=== PATIENT | female | born 1970 | race Caucasian/White ===

== ENCOUNTER → 2017-09-02 14:54 | Outpatient (CLI) | payer OTHER, SELFPAY ==
--- NOTE | 2017-09-02 14:56 | HPBI_ITS ---
MAMMOGRAPHY - BILATERAL SCREENING REASON FOR EXAM: Female, 47 years old. Routine annual screening examination. PERTINENT HISTORY: Non-contributory. Remote right stereotactic biopsy. TECHNIQUE: Digital bilateral breast igor (3D mammographic acquisition) in the CC and MLO projections. 2-D mediolateral oblique (MLO) and craniocaudad (CC) views of both breasts were obtained. CAD: Full Field Digital Mammography with Computer Added Detection was performed. COMPARISON: Comparison is made with prior study dated July 16, 2016 and June 27, 2015. FINDINGS: Breast Composition: There are scattered areas of fibroglandular density. There are no dominant masses or suspicious calcifications. A tissue clip marker is seen in the upper lateral portion of the right breast incomplete with her prior biopsy. No other significant abnormalities are identified. There has been no significant change since the prior study. HPBI/SCREENING MAMM (CAD), BILAT IMPRESSION: Stable bilateral screening mammogram. Yearly follow-up mammogram recommended. (A) ASSESSMENT CATEGORY: BIRADS Category 1: Negative. A letter regarding these results will be sent to the patient by the facility within 30 days. Approximately 10% of breast cancers are not detected by mammography. A normal mammogram should not delay biopsy of a clinically suspicious abnormality. [id number] Electronically Signed: George Springer MD at 8:16 EST Tel [phone], Service support ,
== END ==
PROVIDERS: Family Provider Family Medicine; PCP Family Medicine; Visit Provider Obstetrics & Gynecology
DX: Z12.31 Encounter for screening mammogram for malignant neoplasm of breast (principal)
CPT/HCPCS: 77063; 77067

== ENCOUNTER → 2017-11-05 12:04 | Outpatient (CLI) | payer OTHER, SELFPAY ==
[2017-11-05 14:17] LABS: Absolute Lymphocyte Count 1.52 X10^3/ul (0.83-4.51); Absolute Neutrophil Count 2.8 X10^3/uL (2.0-7.7); Basophil# 0.03 X10^3/uL; Basophil% 0.6 % (0-1); Eosinophil# 0.07 X10^3/uL; Eosinophils% 1.4 % (0-5); Hematocrit 42.9 % (37-47); Hemoglobin 13.8 g/dl (12.0-15.0); Lymphocyte # 1.52 X10^3/ul (4.0); Lymphocyte % 30.8 % (19-41); Mean Corp Hgb Conc 32.2 g/gl (32-36); Mean Corpuscular Hgb 30.1 pg (27.0-32.0); Mean Corpuscular Volume 93.7 fL (81-99); Mean Platelet Vol. 10.4 fl (6.2-12.0); Monocyte# 0.52 X10^3/uL; Monocyte% 10.5 % (0-10); Neutrophil % 56.7 % (47-70); POSITIVE COUNT NO; POSITIVE DIFFERENTIAL NO; POSITIVE MORPHOLOGY NO; Platelet Count 300 K/mm3 (150-450); RBC Distribution Width CV 13.2 % (11.6-14.6); Red Blood Count 4.58 M/mm3 (4.2-5.4); White Blood Count 4.9 K/mm3 (4.4-11.0)
[2017-11-05 14:35] LABS: AST(SGOT) 25 U/L (15-37); Alanine Aminotransfer ALT/SGPT 36 U/L (13-56); Albumin, Serum 3.9 g/dL (3.2-5.0); Alkaline Phosphatase 79 U/L (45-117); Anion Gap 7 (5-15); BUN 8 mg/dL (7-18); BUN/Creat Ratio 9.5 RATIO (10-20); Calcium,Total 8.4 mg/dL (8.5-10.1); Chloride 106 mmol/L (98-107); Creatinine, Serum 0.84 mg/dL (0.55-1.02); EST Glomerular Filtration Rate 77 mL/min (>60); Est Glom Filt Rate - Afr Amer 93 mL/min (>60); Globulin 3.9 g/dL (2.2-4.2); Glucose 85 mg/dL (74-106); Potassium 4.2 mmol/L (3.5-5.1); Protein, Total 7.8 g/dL (6.4-8.2); Sodium Level 141 mmol/L (136-145)
== END ==
PROVIDERS: Family Provider Family Medicine; PCP Family Medicine; Visit Provider Internal Medicine Rheumatology
DX: M06.4 Inflammatory polyarthropathy (principal); M35.1 Other overlap syndromes; M35.8 Other specified systemic involvement of connective tissue; M79.7 Fibromyalgia; K90.0 Celiac disease; F32.89 Other specified depressive episodes; F41.8 Other specified anxiety disorders
CPT/HCPCS: 36415; 80053; 85025

== ENCOUNTER → 2018-03-09 15:37 | Outpatient (CLI) | payer OTHER, SELFPAY ==
[2018-03-09 17:40] LABS: Absolute Lymphocyte Count 1.69 X10^3/ul (0.83-4.51); Absolute Neutrophil Count 3.6 X10^3/uL (2.0-7.7); Basophil# 0.02 X10^3/uL; Basophil% 0.3 % (0-1); Eosinophil# 0.12 X10^3/uL; Hematocrit 42.6 % (37-47); Hemoglobin 14.4 g/dl (12.0-15.0); Lymphocyte # 1.69 X10^3/ul (4.0); Lymphocyte % 27.5 % (19-41); Mean Corp Hgb Conc 33.8 g/gl (32-36); Mean Corpuscular Hgb 31.1 pg (27.0-32.0); Mean Platelet Vol. 10.4 fl (6.2-12.0); Monocyte# 0.67 X10^3/uL; Monocyte% 10.9 % (0-10); Neutrophil # 3.63 X10^3/uL (2.7-7.7); POSITIVE COUNT NO; POSITIVE DIFFERENTIAL NO; POSITIVE MORPHOLOGY NO; Platelet Count 288 K/mm3 (150-450); RBC Distribution Width CV 13.3 % (11.6-14.6); RBC Distribution Width SD 44.4 fl (35.1-43.9); Red Blood Count 4.63 M/mm3 (4.2-5.4); White Blood Count 6.2 K/mm3 (4.4-11.0)
[2018-03-09 17:48] LABS: ALB/GLOB Ratio 0.9 RATIO (0.9-2.4); AST(SGOT) 20 U/L (15-37); Alanine Aminotransfer ALT/SGPT 28 U/L (13-56); Albumin, Serum 3.9 g/dL (3.2-5.0); Alkaline Phosphatase 66 U/L (45-117); Anion Gap 7 (5-15); BUN 8 mg/dL (7-18); BUN/Creat Ratio 9.1 RATIO (10-20); Calcium,Total 8.8 mg/dL (8.5-10.1); Chloride 106 mmol/L (98-107); Creatinine, Serum 0.88 mg/dL (0.55-1.02); EST Glomerular Filtration Rate 73 mL/min (>60); Est Glom Filt Rate - Afr Amer 88 mL/min (>60); Globulin 4.4 g/dL (2.2-4.2); Glucose 85 mg/dL (74-106); Potassium 4.1 mmol/L (3.5-5.1); Protein, Total 8.3 g/dL (6.4-8.2); Sodium Level 139 mmol/L (136-145)
== END ==
PROVIDERS: Family Provider Family Medicine; PCP Family Medicine; Visit Provider Internal Medicine Rheumatology
DX: M06.4 Inflammatory polyarthropathy (principal); M35.1 Other overlap syndromes; M35.8 Other specified systemic involvement of connective tissue; M79.7 Fibromyalgia; K90.0 Celiac disease; F32.89 Other specified depressive episodes; F41.8 Other specified anxiety disorders
CPT/HCPCS: 36415; 80053; 85025

== ENCOUNTER → 2018-05-12 13:21 | Outpatient (CLI) | payer OTHER, SELFPAY ==
[2018-05-12 14:15] LABS: Absolute Lymphocyte Count 1.62 X10^3/ul (0.83-4.51); Absolute Neutrophil Count 3.5 X10^3/uL (2.0-7.7); Basophil# 0.03 X10^3/uL; Basophil% 0.5 % (0-1); Eosinophil# 0.14 X10^3/uL; Eosinophils% 2.4 % (0-5); Hematocrit 40.3 % (37-47); Hemoglobin 13.4 g/dl (12.0-15.0); Lymphocyte # 1.62 X10^3/ul (4.0); Lymphocyte % 27.8 % (19-41); Mean Corp Hgb Conc 33.3 g/gl (32-36); Mean Corpuscular Hgb 31.1 pg (27.0-32.0); Mean Corpuscular Volume 93.5 fL (81-99); Mean Platelet Vol. 10.1 fl (6.2-12.0); Monocyte# 0.56 X10^3/uL; Monocyte% 9.6 % (0-10); Neutrophil # 3.46 X10^3/uL (2.7-7.7); Neutrophil % 59.5 % (47-70); Platelet Count 302 K/mm3 (150-450); RBC Distribution Width CV 13.9 % (11.6-14.6); RBC Distribution Width SD 45.7 fl (35.1-43.9); Red Blood Count 4.31 M/mm3 (4.2-5.4); White Blood Count 5.8 K/mm3 (4.4-11.0)
[2018-05-12 14:19] LABS: POSITIVE COUNT NO; POSITIVE DIFFERENTIAL NO; POSITIVE MORPHOLOGY NO
[2018-05-12 14:39] LABS: AST(SGOT) 20 U/L (15-37); Alanine Aminotransfer ALT/SGPT 38 U/L (13-56); Albumin, Serum 3.9 g/dL (3.2-5.0); Alkaline Phosphatase 73 U/L (45-117); Anion Gap 4 (5-15); BUN 14 mg/dL (7-18); BUN/Creat Ratio 18.6 RATIO (10-20); Calcium,Total 8.6 mg/dL (8.5-10.1); Chloride 105 mmol/L (98-107); Creatinine, Serum 0.75 mg/dL (0.55-1.02); EST Glomerular Filtration Rate 87 mL/min (>60); Est Glom Filt Rate - Afr Amer 106 mL/min (>60); Glucose 80 mg/dL (74-106); Potassium 3.9 mmol/L (3.5-5.1); Protein, Total 7.9 g/dL (6.4-8.2); Sodium Level 137 mmol/L (136-145)
== END ==
PROVIDERS: Family Provider Family Medicine; PCP Family Medicine; Referring Provider Internal Medicine Rheumatology; Visit Provider Internal Medicine Rheumatology
DX: M06.4 Inflammatory polyarthropathy (principal); M35.1 Other overlap syndromes; M35.8 Other specified systemic involvement of connective tissue; M79.7 Fibromyalgia; K90.0 Celiac disease; F32.89 Other specified depressive episodes; F41.8 Other specified anxiety disorders
CPT/HCPCS: 36415; 80053; 85025

== ENCOUNTER → 2018-08-11 13:01 | Outpatient (CLI) | payer OTHER, SELFPAY ==
[2018-08-11 14:32] LABS: Absolute Lymphocyte Count 1.56 X10^3/ul (0.83-4.51); Basophil# 0.03 X10^3/uL; Basophil% 0.6 % (0-1); Eosinophil# 0.09 X10^3/uL; Eosinophils% 1.7 % (0-5); Hematocrit 40.5 % (37-47); Hemoglobin 13.7 g/dl (12.0-15.0); Lymphocyte # 1.56 X10^3/ul (4.0); Lymphocyte % 29.7 % (19-41); Mean Corp Hgb Conc 33.8 g/gl (32-36); Mean Corpuscular Volume 94.6 fL (81-99); Mean Platelet Vol. 10.5 fl (6.2-12.0); Monocyte# 0.54 X10^3/uL; Monocyte% 10.3 % (0-10); Neutrophil # 3.02 X10^3/uL (2.7-7.7); Neutrophil % 57.5 % (47-70); Platelet Count 315 K/mm3 (150-450); RBC Distribution Width CV 13.5 % (11.6-14.6); RBC Distribution Width SD 44.8 fl (35.1-43.9); Red Blood Count 4.28 M/mm3 (4.2-5.4); White Blood Count 5.3 K/mm3 (4.4-11.0)
[2018-08-11 14:37] LABS: POSITIVE COUNT NO; POSITIVE DIFFERENTIAL NO; POSITIVE MORPHOLOGY NO
[2018-08-11 14:47] LABS: ALB/GLOB Ratio 1.1 RATIO (0.9-2.4); AST(SGOT) 21 U/L (15-37); Alanine Aminotransfer ALT/SGPT 30 U/L (13-56); Alkaline Phosphatase 68 U/L (45-117); Anion Gap 11 (5-15); BUN 12 mg/dL (7-18); BUN/Creat Ratio 14.7 RATIO (10-20); Chloride 106 mmol/L (98-107); Creatinine, Serum 0.82 mg/dL (0.55-1.02); EST Glomerular Filtration Rate 79 mL/min (>60); Est Glom Filt Rate - Afr Amer 96 mL/min (>60); Globulin 3.8 g/dL (2.2-4.2); Glucose 81 mg/dL (74-106); Potassium 3.9 mmol/L (3.5-5.1); Protein, Total 7.8 g/dL (6.4-8.2); Sodium Level 141 mmol/L (136-145)
--- OUTSIDE RECORDS SUMMARY | 2018-10-13 12:07 | XMS RPT_ITS ---
:1970 Author Organization OHIP Care Team Providers Name Role Phone ESTEBAN NOVA Attending ESTEBAN Mendoza Referring Unavailable ESTEBAN NOVA Attending Unavailable ESTEBAN NOVA Referring Unavailable ESTEBAN NOVA Attending Unavailable ESTEBAN NOVA Referring Unavailable ESTEBAN NOVA Attending Unavailable ESTEBAN NOVA Referring Unavailable ESTEBAN NOVA Attending Unavailable ESTEBAN NOVA Referring Unavailable ESTEBAN NOVA Referring Unavailable ESTEBAN NOVA Attending Unavailable ESTEBAN NOVA Referring Unavailable ESTEBAN NOVA Attending Unavailable SRINIVASAN GRAHAM Attending Unavailable SRINIVASAN GRAHAM Referring Unavailable Vellanki, Vanessa Attending Unavailable Vellanki, Vanessa Referring Unavailable Esteban Nova Primary Care Unavailable Rubi Adams Attending Unavailable Mary Jane, Esteban Primary Care Unavailable Vellanki, Vanessa Attending Unavailable Esteban Nova Primary Care Unavailable Vellanki, Vanessa Attending Unavailable Vellanki, Vanessa Referring Unavailable Esteban Nova Primary Care Unavailable Vellanki, Vanessa Attending Unavailable Vellanki, Vanessa Referring Unavailable Mary Jane, Esteban Primary Care Unavailable PROBLEMS PROBLEMS DATE TYPE CONDITION / CODE ATTENDING STATUS SOURCE 08/11/2018 Unknown 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 involvement of Hospital connective tissue / Repository M35.8(ICD-10) 08/11/2018 Unknown M79.7 - Fibromyalgia [place]i, Active [place] / M79.7(ICD-10) [facility] Hospital Repository 08/11/2018 Unknown K90.0 - Celiac [place]i, Active [place] disease / [facility] K90.0(ICD-10) Hospital Repository 08/11/2018 Unknown F32.89 - Other [place], Active [place] specified depressive [facility] episodes / Hospital F32.89(ICD-10) Repository 08/11/2018 Unknown F41.8 - Other [place], Active [place] specified anxiety [facility] disorders / Hospital F41.8(ICD-10) Repository 05/19/2018 Active Other usp NA Active [place] (current[facility] Main therapy / [place] Z79.899(ICD-10) Repository 05/19/2018 Active Other fatigue / NA Active [place] R53.83(ICD-10) Clinic Main [place] Repository 05/12/2018 Unknown F32.9 - Major V[place]i, Active [place] depressive disorder, [facility] single episode, Hospital unspecified / Repository F32.9(ICD-10) 09/25/2017 Admitting Raised antibody SRINIVASAN GRAHAM Active [facility] Diagnosis titer / System R76.0(ICD-10) Repository PROCEDURES PROCEDURES No Procedure Records FoundRESULTS RESULTS PROGRESS Observed: 08/11/2018 Status: COMPLETED Source: [place] 2:40 PM [facility] REPOSITORY HNO ID: [id number] Author: Esteban Nova Service: (none) Author Type: Physician Type: Progress Notes Filed: 08/13/2018 9:41 AM Note Text: Chief Complaint Patient presents with: F/U 3 Month: HTN, Fatigue, Anxiety/OCD HPI Suzanne Garza is a 48 year old female who presents here today for a 3 mo f/u. Pt here today for a 3 mo f/u. HTN - Denies checking BP at home. Denies any chest pain, sob or dizziness. Currently taking Lisinopril 10 mg 1 tab po once daily and Amlodipine 5 mg daily (to help control Raynaud's). Anxiety/Depression/OCD - OCD symptoms are semi-controlled and not as bad as what they have been. Feet - Complains of bilateral foot pain once completing a shift at work. Looking into getting some new shoes today. Weight - Continues to keep increasing. In 1 year pt has gained any where from 20-25 lbs. States that her eating habits haven't changed but she doesn't move much either. Also has been on Fatigue - Chronic fatigue, continues to still have issues despite being treated for multiple things. Raynauds - Was prescribed Amlodipine for red/purple toes and hands. Since starting medication symptoms have been better controlled. Rheum/Fibro - Following with Dr. Hayden every 3 months. Will discuss with her about increased arthritis pain. Currently taking Turmeric, Methotrexate 2.5 mg 6 tabs on Thursday, Leucovorin 15 mg 1 tab po on Thursday, Plaquenil 200 mg 1 tab po bid and Flexeril 10 mg 1 tab at bedtime. Past medical history, appointments, medications, allergies reviewed. Previous Medical History PAST MEDICAL HISTORY Diagnosis Date - Abnormal mammogram, unspecified right - Anxiety on meds - Mental disorder Previous Surgical History PAST SURGICAL HISTORY Procedure Laterality Date - EGD W/O OR W/BRUSH/WASH 06/29/14 EGD - STEREOTACTIC CORE BIOPSY 04/12/09 right breast - VAGINAL HYSTERECTOMY ovaries not taken Family History FAMILY HISTORY Problem Relation Age of Onset - Thyroid Mother - Hypertension Mother - Diabetes Mother - Ischemic Heart Disease Father age 55 of [place] Patient Allergies ALLERGIES Allergen Reactions - Codeine Vomiting Current Medications Current Outpatient Prescriptions on File Prior to Visit: folic acid 1 mg tablet Take 1 tablet by mouth twice daily. leucovorin (LEUCOVORIN) 15 mg tablet Take 15 mg by mouth once each week. methotrexate 2.5 mg tablet TAKE 6 TABLETS BY MOUTH ONCE WEEKLY amLODIPine (NORVASC) 5 mg tablet Take 5 mg by mouth once daily. turmeric root extract 500 mg cap Take 1 capsule by mouth once daily. cyanocobalamin, vitamin B-12, 5,000 mcg ODT Take 1 tablet by mouth once daily. sour cabrera extract (TART CABRERA EXTRACT) 1,000 mg cap Take 1 capsule by mouth once daily. ALPRAZolam (XANAX) 0.5 mg tablet Take 1 tablet by mouth three times daily as needed for up to 90 days. lisinopril (ZESTRIL, PRINIVIL) 10 mg tablet Take 1 tablet by mouth once daily. cyclobenzaprine (FLEXERIL) 10 mg tablet Take 1 tablet by mouth daily at bedtime. venlafaxine ER (EFFEXOR XR) 150 mg 24 hr capsule Take 1 capsule by mouth once daily. hydroxychloroquine (PLAQUENIL) 200 mg tablet Take 200 mg by mouth twice daily. Cholecalciferol, Vitamin D3, 1,000 unit cap Take 1 capsule by mouth once daily. No current facility-administered medications on file prior to visit. 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 General Appearance: Well appearing, alert, in no acute distress, well-hydrated, well nourished. and Obese. Neck: Supple, no adenopathy; thyroid symmetric, normal size, no bruits. Lungs: lungs clear to auscultation. No wheezing, rhonchi, rales. Heart: RRR without murmur, gallop, or rubs. No ectopy. Health Maintenance List BP CONTROLLED (<130/80) due on 1987 INFLUENZA(1) due on 03/20/2018 MAMMOGRAM due on 09/02/2018 ANNUAL PCP TEAM CHRONIC DISEASE VISIT due on 05/26/2019 DIABETES SCREEN due on 05/19/2021 LIPID SCREEN due on 03/25/2022 DTAP,TDAP,TD(3 - Td) due on 12/18/2025 Data reviewed External labs ASSESSMENT/PLAN: 1. Anxiety with depression - ICD9: 300.4, ICD10: F41.8 (primary diagnosis) - D/c Effexor due to possible weight gain. - Start Cymbalta 30 mg once daily. 2. Raynaud's phenomenon without gangrene - ICD9: 443.0, ICD10: I73.00 Continue norvasc 3. Obsessive-compulsive disorder, unspecified type - ICD9: 300.3, ICD10: F42.9 Continue current medications. 4. Essential hypertension - ICD9: 401.9, ICD10: I10 - good control - Continue current medication(s) - Goal of BP <140/90 5. Fibromyalgia - ICD9: 729.1, ICD10: M79.7 1 mo f/u to check on medication. I agree with the Chief Complaint, ROS, and Past Histories independently gathered by the clinical sales support engineer and the remaining scribed note accurately describes my personal service to the patient. Esteban Nova MD The documentation for this note was completed by Shawnee Piper Ma acting as scribe for Esteban Nova MD. August 11, 2018 2:40 PM. CNOV Observed: 08/11/2018 Status: COMPLETED Source: [place] 2:20 PM [facility] REPOSITORY [facility] SUZANNE GARZA ([id number]) 1970 F Date Time Provider Department 08/11/18 2:20 PM ESTEBAN NOVA During your visit today, we recorded the following information about you: Pulse Respiration Blood pressure Weight 80/minute 16/minute 138/86 116.5 kg Esteban Nova MD 08/13/2018 9:41 AM Signed Chief Complaint Patient presents with: F/U 3 Month: HTN, Fatigue, Anxiety/OCD HPI Suzanne Garza is a 48 year old female who presents here today for a 3 mo f/u. Pt here today for a 3 mo f/u. HTN - Denies checking BP at home. Denies any chest pain, sob or dizziness. Currently taking Lisinopril 10 mg 1 tab po once daily and Amlodipine 5 mg daily (to help control Raynaud's). Anxiety/Depression/OCD - OCD symptoms are semi-controlled and not as bad as what they have been. Feet - Complains of bilateral foot pain once completing a shift at work. Looking into getting some new shoes today. Weight - Continues to keep increasing. In 1 year pt has gained any where from 20-25 lbs. States that her eating habits haven't changed but she doesn't move much either. Also has been on Fatigue - Chronic fatigue, continues to still have issues despite being treated for multiple things. Raynauds - Was prescribed Amlodipine for red/purple toes and hands. Since starting medication symptoms have been better controlled. Rheum/Fibro - Following with Dr. Hayden every 3 months. Will discuss with her about increased arthritis pain. Currently taking Turmeric, Methotrexate 2.5 mg 6 tabs on Thursday, Leucovorin 15 mg 1 tab po on Thursday, Plaquenil 200 mg 1 tab po bid and Flexeril 10 mg 1 tab at bedtime. Past medical history, appointments, medications, allergies reviewed. Previous Medical History PAST MEDICAL HISTORY Diagnosis Date - Abnormal mammogram, unspecified right - Anxiety on meds - Mental disorder Previous Surgical History PAST SURGICAL HISTORY Procedure Laterality Date - EGD W/O OR W/BRUSH/WASH 06/29/14 EGD - STEREOTACTIC CORE BIOPSY 04/12/09 right breast - VAGINAL HYSTERECTOMY ovaries not taken Family History FAMILY HISTORY Problem Relation Age of Onset - Thyroid Mother - Hypertension Mother - Diabetes Mother - Ischemic Heart Disease Father age 55 of [place] Patient Allergies ALLERGIES Allergen Reactions - Codeine Vomiting Current Medications Current Outpatient Prescriptions on File Prior to Visit: folic acid 1 mg tablet Take 1 tablet by mouth twice daily. leucovorin (LEUCOVORIN) 15 mg tablet Take 15 mg by mouth once each week. methotrexate 2.5 mg tablet TAKE 6 TABLETS BY MOUTH ONCE WEEKLY amLODIPine (NORVASC) 5 mg tablet Take 5 mg by mouth once daily. turmeric root extract 500 mg cap Take 1 capsule by mouth once daily. cyanocobalamin, vitamin B-12, 5,000 mcg ODT Take 1 tablet by mouth once daily. sour cabrera extract (TART CABRERA EXTRACT) 1,000 mg cap Take 1 capsule by mouth once daily. ALPRAZolam (XANAX) 0.5 mg tablet Take 1 tablet by mouth three times daily as needed for up to 90 days. lisinopril (ZESTRIL, PRINIVIL) 10 mg tablet Take 1 tablet by mouth once daily. cyclobenzaprine (FLEXERIL) 10 mg tablet Take 1 tablet by mouth daily at bedtime. venlafaxine ER (EFFEXOR XR) 150 mg 24 hr capsule Take 1 capsule by mouth once daily. hydroxychloroquine (PLAQUENIL) 200 mg tablet Take 200 mg by mouth twice daily. Cholecalciferol, Vitamin D3, 1,000 unit cap Take 1 capsule by mouth once daily. No current facility-administered medications on file prior to visit. 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 General Appearance: Well appearing, alert, in no acute distress, well-hydrated, well nourished. and Obese. Neck: Supple, no adenopathy; thyroid symmetric, normal size, no bruits. Lungs: lungs clear to auscultation. No wheezing, rhonchi, rales. Heart: RRR without murmur, gallop, or rubs. No ectopy. Health Maintenance List BP CONTROLLED (<130/80) due on 1987 INFLUENZA(1) due on 03/20/2018 MAMMOGRAM due on 09/02/2018 ANNUAL PCP TEAM CHRONIC DISEASE VISIT due on 05/26/2019 DIABETES SCREEN due on 05/19/2021 LIPID SCREEN due on 03/25/2022 DTAP,TDAP,TD(3 - Td) due on 12/18/2025 Data reviewed External labs ASSESSMENT/PLAN: 1. Anxiety with depression - ICD9: 300.4, ICD10: F41.8 (primary diagnosis) - D/c Effexor due to possible weight gain. - Start Cymbalta 30 mg once daily. 2. Raynaud's phenomenon without gangrene - ICD9: 443.0, ICD10: I73.00 Continue norvasc 3. Obsessive-compulsive disorder, unspecified type - ICD9: 300.3, ICD10: F42.9 Continue current medications. 4. Essential hypertension - ICD9: 401.9, ICD10: I10 - good control - Continue current medication(s) - Goal of BP <140/90 5. Fibromyalgia - ICD9: 729.1, ICD10: M79.7 1 mo f/u to check on medication. I agree with the Chief Complaint, ROS, and Past Histories independently gathered by the clinical sales support engineer and the remaining scribed note accurately describes my personal service to the patient. Esteban Nova MD The documentation for this note was completed by Shawnee Piper Ma acting as scribe for Esteban Nova MD. August 11, 2018 2:40 PM. Referring Provider: SELF [[id number]] Allergies As of Date: 08/11/2018 Noted Allergy Reaction CODEINE 12/10/2005 11 - Vomiting Date Reviewed: 08/11/2018 Reviewed by: Shawnee Piper Ma - Fully Assessed Reason for Visit: F/U 3 Month [443] Cmt: HTN, Fatigue, Anxiety/OCD Primary Visit Diagnosis:Anxiety with depression [F41.8] Other Visit Diagnoses:Raynaud's phenomenon without gangrene [I73.00] Obsessive-compulsive disorder, unspecified type [F42.9] Essential hypertension [I10] Fibromyalgia [M79.7] Order(s):DULoxetine (CYMBALTA) 30 mg capsuleTake 1 capsule by mouth once daily.Disp: 30 capsuleRfl: 5 Prescriptions as of 08/11/2018 Sig: FOLIC ACID 1 MG TABLET Take 1 tablet by mouth twice * LEUCOVORIN CALCIUM 15 MG TABL* Take 15 mg by mouth once each* METHOTREXATE SODIUM 2.5 MG TA* TAKE 6 TABLETS BY MOUTH ONCE * AMLODIPINE 5 MG TABLET Take 5 mg by mouth once daily. TURMERIC ROOT EXTRACT 500 MG * Take 1 capsule by mouth once * CYANOCOBALAMIN (VIT B-12) 5,0* Take 1 tablet by mouth once d* SOUR CABRERA EXTRACT 1,000 MG * Take 1 capsule by mouth once * ALPRAZOLAM 0.5 MG TABLET Take 1 tablet by mouth three * LISINOPRIL 10 MG TABLET Take 1 tablet by mouth once d* CYCLOBENZAPRINE 10 MG TABLET Take 1 tablet by mouth daily * HYDROXYCHLOROQUINE 200 MG TAB* Take 200 mg by mouth twice da* CHOLECALCIFEROL (VITAMIN D3) * Take 1 capsule by mouth once * DULOXETINE 30 MG CAPSULE,JODI* Take 1 capsule by mouth once * Problem List As Of Date 08/11/2018 Noted Resolved Anxiety [F41.9] INVALID FOR* Hypothyroidism [E03.9] INVALID FOR* Paresthesia of both feet [R20.2] INVALID FOR* Neuropathy [G62.9] INVALID FOR* Discoloration of skin of toe [L81.9] INVALID FOR* Raynaud's phenomenon [I73.00] INVALID FOR* Pain in both feet [M79.671, M79.672] INVALID FOR*03/03/2018 Concern about neurological disease without diag*INVALID FOR*03/03/2018 OCD (obsessive compulsive disorder) [F42.9] INVALID FOR* Essential hypertension [I10] INVALID FOR* Obesity, Class II, BMI 35-39.9 [E66.9] INVALID FOR* Fibromyalgia [M79.7] INVALID FOR* Positive HANG (antinuclear antibody) [R76.8] INVALID FOR* Prescriptions ordered this encounter Disp Refills Start End DULOXETINE 30 MG CAPSULE,DELAYED REL* 30 c* 5 08/11/2018 Route: ORAL Sig: Take 1 capsule by mouth once daily. Medications Discontinued During This Encounter venlafaxine ER (EFFEXOR XR) 150 mg 2* 30 c* 5 02/20/2018 08/11/2018 Cmt: This prescription was filled on 02/19/2018. Any refills authorized will be placed on file. Sig: Take 1 capsule by mouth once daily. Disc: Changing Therapy/Dosage Form Disposition: Return in about 4 weeks (around 09/08/2018). Follow-up and Disposition History Recorded Encounter Status:Closed by ESTEBAN NOVA MD on 08/13/18 CBC W/DIFF, AUTOMATED Collected: 08/11/2018 Status: F Source: [place] 1:12 PM [facility] REPOSITORY TYPE CODE TESTS RESULT OUT OF RANGE REFERENCE UNITS LAB L100.1000 4.4-11.0 K/mm3 Normal WBC 5.3 LAB L100.1200 4.2-5.4 M/mm3 Normal RBC 4.28 LAB L100.1300 12.0-15.0 g/dl Normal HGB 13.7 LAB L100.1400 37-47 % Normal HCT 40.5 LAB L100.1500 81-99 fL Normal MCV 94.6 LAB L100.1600 27.0-32.0 pg Normal MCH 32.0 LAB L100.1700 32-36 g/gl Normal MCHC 33.8 LAB L100.1810 11.6-14.6 % Normal RDW CV 13.5 LAB L100.1820 35.1-43.9 fl High RDW SD 44.8 LAB L100.1900 150-450 K/mm3 Normal PLT 315 LAB L100.2000 6.2-12.0 fl Normal MPV 10.5 LAB L100.2100 47-70 % Normal NEUT% 57.5 LAB L100.2200 19-41 % Normal LY% 29.7 LAB L100.2300 0-10 % High MONO% 10.3 LAB L100.2400 0-5 % Normal EO% 1.7 LAB L100.2500 0-1 % Normal BASO% 0.6 LAB L100.2550 0.0-0.9 % Normal IM GRAN % 0.200 Result Comment: IG% - Immature Granulocytes (promyelocytes, myelocytes and metamyelocytes) > 1% indicates that a LEFT SHIFT is Present. LAB L100.2620 2.0-7.7 X10 3/uL Normal Absolute Neut 3.0 LAB L100.2720 0.83-4.51 X10 3/ul Normal Absolute Lymph 1.56 Performed By: #### L100.0100 #### [facility] [address] [place], [address] COMPREHENSIVE METABOLIC Collected: 08/11/2018 Status: F Source: [facility] 1:12 PM [facility] REPOSITORY TYPE CODE TESTS RESULT OUT OF RANGE REFERENCE UNITS LAB L501.0100 74-106 mg/dL Normal GLU 81 Result Comment: Please note revised GLUCOSE reference range effective 2017. LAB L501.1000 7-18 mg/dL Normal BUN 12 LAB L501.1100 0.55-1.02 mg/dL Normal CREAT,SERUM 0.82 Result Comment: The validity of the calculated GFR AND GFRAA in patients over 70 years has not been determined. Clinical correlation is essential. LAB L501.1110 >60 mL/min Normal EST GFR 79 Result Comment: Non- GFR Calc LAB L501.1115 >60 mL/min Normal EST GFR - AA 96 Result Comment: GFR Calc LAB L501.1300 10-20 RATIO Normal BUN/CRE 14.7 LAB L501.1500 6.4-8.2 g/dL T Normal PROT 7.8 LAB L501.1800 3.2-5.0 g/dL Normal ALB 4.0 LAB L501.1950 2.2-4.2 g/dL Normal GLOB 3.8 LAB L501.2000 0.9-2.4 RATIO Normal A/G 1.1 LAB L501.2200 8.5-10.1 mg/dL CA Normal 9.0 LAB L501.4100 15-37 U/L Normal AST 21 LAB L501.4305 45-117 U/L Normal ALK P 68 LAB L501.4405 13-56 U/L Normal ALT 30 LAB L501.4600 0.20-1.00 mg/dL T Normal BILI 0.40 LAB L501.5300 136-145 mmol/L NA Normal 141 LAB L501.5600 3.5-5.1 mmol/L K Normal 3.9 LAB L501.5900 98-107 mmol/L CL Normal 106 LAB L501.6100 21.0-32.0 mmol/L Normal CO2 24.0 LAB L501.6200 5-15 Normal GAP 11 Performed By: #### L500.4050 #### [facility] [address] [place], [address] PROGRESS Observed: 05/26/2018 Status: COMPLETED Source: [place] 2:25 PM [facility] REPOSITORY HNO ID: [id number] Author: Esteban Nova Service: (none) Author Type: Physician Type: Progress Notes Filed: 05/26/2018 7:23 PM Note Text: Chief Complaint Patient presents with: F/U 3 Month: Fibro, Anxiety/OCD and HTN HPI Suzanne Garza is a 48 year old female who presents here today for a 3 mo f/u. RheumFibro - Follows with Dr. Hayden every 3 months with labs. Started on Plaquenil 200 mg twice daily. Methotrexate 2.5 QID, now increased to 6 tabs on Thursday. Was put on Leucovorin to help with SE (increased tiredness) as well as Folic Acid bid. Did start on some OTC medications such as Cabrera Tart, Turmeric and Apple Cider Vinegar. Using Flexeril at bedtime for pain as well. HTN - Denies checking at home. Denies any sob, dizziness or chest pain. Currently taking Lisinopril 10 mg 1 tab po once daily. Anxiety/OCD - Overall stable with use of medications, but still there. Symptoms are tolerable on regimen. Currently taking Effexor 150 mg once daily and Xanax 0.5 mg 3 tabs at bedtime. Neck - Started yesterday with a pain in her neck. Using bio-freeze. Possibly due to sleeping on it wrong. Raynaud - Started on Amlodipine 5 mg once daily to help with skin discoloration in her feet. Seems to be improved. Past medical history, appointments, medications, allergies reviewed. Previous Medical History PAST MEDICAL HISTORY Diagnosis Date - Abnormal mammogram, unspecified right - Anxiety on meds - Mental disorder Previous Surgical History PAST SURGICAL HISTORY Procedure Laterality Date - EGD W/O OR W/BRUSH/WASH 06/29/14 EGD - STEREOTACTIC CORE BIOPSY 04/12/09 right breast - VAGINAL HYSTERECTOMY ovaries not taken Family History FAMILY HISTORY Problem Relation Age of Onset - Thyroid Mother - Hypertension Mother - Diabetes Mother - Ischemic Heart Disease Father age 55 of [place] Patient Allergies ALLERGIES Allergen Reactions - Codeine Vomiting Current Medications Current Outpatient Prescriptions on File Prior to Visit: ALPRAZolam (XANAX) 0.5 mg tablet TAKE ONE TABLET BY MOUTH THREE TIMES DAILY NEEDED FOR ANXIETY cyclobenzaprine (FLEXERIL) 10 mg tablet Take 1 tablet by mouth daily at bedtime. venlafaxine ER (EFFEXOR XR) 150 mg 24 hr capsule Take 1 capsule by mouth once daily. lisinopril (ZESTRIL, PRINIVIL) 10 mg tablet Take 1 tablet by mouth once daily. hydroxychloroquine (PLAQUENIL) 200 mg tablet Take 200 mg by mouth twice daily. Cholecalciferol, Vitamin D3, 1,000 unit cap Take 1 capsule by mouth once daily. No current facility-administered medications on file prior to visit. 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 General Appearance: Well appearing, alert, in no acute distress, well-hydrated, well nourished. and Obese. Neck: Tightness in right trapezius and with neck movement. Lungs: lungs clear to auscultation. No wheezing, rhonchi, rales. Heart: RRR without murmur, gallop, or rubs. No ectopy. Health Maintenance List PAP EVERY 5 YEARS due on 1999 INFLUENZA(1) due on 03/20/2018 MAMMOGRAM due on 09/02/2018 ANNUAL PCP TEAM CHRONIC DISEASE VISIT due on 03/03/2019 BP CONTROLLED (<130/80) due on 03/03/2019 DIABETES SCREEN due on 05/19/2021 LIPID SCREEN due on 03/25/2022 DTAP,TDAP,TD(3 - Td) due on 12/18/2025 Data reviewed Appointment on 05/19/2018 Component Date Value - TSH 05/19/2018 3.930 - WBC 05/19/2018 6.06 - RBC 05/19/2018 4.23 - Hemoglobin 05/19/2018 13.2 - Hematocrit 05/19/2018 41.2 - MCV 05/19/2018 97.4 - MCH 05/19/2018 31.2 - MCHC 05/19/2018 32.0 - RDW-CV 05/19/2018 14.0 - Platelet Count 05/19/2018 290 - MPV 05/19/2018 10.2 - Absolute nRBC 05/19/2018 <0.01 - Ferritin 05/19/2018 144.5 - Protein, Total 05/19/2018 6.9 - Albumin 05/19/2018 4.2 - Calcium 05/19/2018 9.3 - Bilirubin, Total 05/19/2018 0.4 - Alkaline Phosphatase 05/19/2018 54 - AST 05/19/2018 30 - Glucose 05/19/2018 73* - BUN 05/19/2018 11 - Creatinine 05/19/2018 0.85 - Sodium 05/19/2018 139 - Potassium 05/19/2018 4.0 - Chloride 05/19/2018 101 - CO2 05/19/2018 26 - Anion Gap 05/19/2018 12 - ALT 05/19/2018 29 - eGFR- 05/19/2018 >60 - eGFR-All Other Races 05/19/2018 >60 - WSR 05/19/2018 16 ASSESSMENT/PLAN: 1. Anxiety - ICD9: 300.00, ICD10: F41.9 (primary diagnosis) - Continue current medication regimen. - ALPRAZOLAM 0.5 MG TABLET 2. Fibromyalgia - ICD9: 729.1, ICD10: M79.7 - Rheum 3. Raynaud's phenomenon without gangrene - ICD9: 443.0, ICD10: I73.00 - Rheum - Continue current medication regimen. 4. Obsessive-compulsive disorder, unspecified type - ICD9: 300.3, ICD10: F42.9 - Continue current medication regimen. - ALPRAZOLAM 0.5 MG TABLET 5. Essential hypertension - ICD9: 401.9, ICD10: I10 - suboptimal control - Continue current medication(s) - Recommended regular aerobic exercise. - Recommend home blood pressure monitoring, to bring results in on next visit - Goal of BP <130/80 3 mo f/u I agree with the Chief Complaint, ROS, and Past Histories independently gathered by the clinical sales support engineer and the remaining scribed note accurately describes my personal service to the patient. Esteban Nova MD The documentation for this note was completed by Shawnee Piper Ma acting as scribe for Esteban Nova MD. May 26, 2018 2:26 PM. CNOV Observed: 05/26/2018 Status: COMPLETED Source: [place] 2:20 PM [facility] REPOSITORY Office Visit (FAMPWS) SUZANNE GARZA ([id number]) 1970 F Date Time Provider Department 05/26/18 2:20 PM ESTEBAN NOVA FAMPWS During your visit today, we recorded the following information about you: Pulse Respiration Blood pressure Weight 80/minute 16/minute 138/86 113.8 kg Esteban Nova MD 05/26/2018 7:23 PM Signed Chief Complaint Patient presents with: F/U 3 Month: Fibro, Anxiety/OCD and HTN HPI Suzanne Garza is a 48 year old female who presents here today for a 3 mo f/u. RheumFibro - Follows with Dr. Hayden every 3 months with labs. Started on Plaquenil 200 mg twice daily. Methotrexate 2.5 QID, now increased to 6 tabs on Thursday. Was put on Leucovorin to help with SE (increased tiredness) as well as Folic Acid bid. Did start on some OTC medications such as Cabrera Tart, Turmeric and Apple Cider Vinegar. Using Flexeril at bedtime for pain as well. HTN - Denies checking at home. Denies any sob, dizziness or chest pain. Currently taking Lisinopril 10 mg 1 tab po once daily. Anxiety/OCD - Overall stable with use of medications, but still there. Symptoms are tolerable on regimen. Currently taking Effexor 150 mg once daily and Xanax 0.5 mg 3 tabs at bedtime. Neck - Started yesterday with a pain in her neck. Using bio- freeze. Possibly due to sleeping on it wrong. Raynaud - Started on Amlodipine 5 mg once daily to help with skin discoloration in her feet. Seems to be improved. Past medical history, appointments, medications, allergies reviewed. Previous Medical History PAST MEDICAL HISTORY Diagnosis Date - Abnormal mammogram, unspecified right - Anxiety on meds - Mental disorder Previous Surgical History PAST SURGICAL HISTORY Procedure Laterality Date - EGD W/O OR W/BRUSH/WASH 06/29/14 EGD - STEREOTACTIC CORE BIOPSY 04/12/09 right breast - VAGINAL HYSTERECTOMY ovaries not taken Family History FAMILY HISTORY Problem Relation Age of Onset - Thyroid Mother - Hypertension Mother - Diabetes Mother - Ischemic Heart Disease Father age 55 of [place] Patient Allergies ALLERGIES Allergen Reactions - Codeine Vomiting Current Medications Current Outpatient Prescriptions on File Prior to Visit: ALPRAZolam (XANAX) 0.5 mg tablet TAKE ONE TABLET BY MOUTH THREE TIMES DAILY NEEDED FOR ANXIETY cyclobenzaprine (FLEXERIL) 10 mg tablet Take 1 tablet by mouth daily at bedtime. venlafaxine ER (EFFEXOR XR) 150 mg 24 hr capsule Take 1 capsule by mouth once daily. lisinopril (ZESTRIL, PRINIVIL) 10 mg tablet Take 1 tablet by mouth once daily. hydroxychloroquine (PLAQUENIL) 200 mg tablet Take 200 mg by mouth twice daily. Cholecalciferol, Vitamin D3, 1,000 unit cap Take 1 capsule by mouth once daily. No current facility-administered medications on file prior to visit. 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 General Appearance: Well appearing, alert, in no acute distress, well-hydrated, well nourished. and Obese. Neck: Tightness in right trapezius and with neck movement. Lungs: lungs clear to auscultation. No wheezing, rhonchi, rales. Heart: RRR without murmur, gallop, or rubs. No ectopy. Health Maintenance List PAP EVERY 5 YEARS due on 1999 INFLUENZA(1) due on 03/20/2018 MAMMOGRAM due on 09/02/2018 ANNUAL PCP TEAM CHRONIC DISEASE VISIT due on 03/03/2019 BP CONTROLLED (<130/80) due on 03/03/2019 DIABETES SCREEN due on 05/19/2021 LIPID SCREEN due on 03/25/2022 DTAP,TDAP,TD(3 - Td) due on 12/18/2025 Data reviewed Appointment on 05/19/2018 Component Date Value - TSH 05/19/2018 3.930 - WBC 05/19/2018 6.06 - RBC 05/19/2018 4.23 - Hemoglobin 05/19/2018 13.2 - Hematocrit 05/19/2018 41.2 - MCV 05/19/2018 97.4 - MCH 05/19/2018 31.2 - MCHC 05/19/2018 32.0 - RDW-CV 05/19/2018 14.0 - Platelet Count 05/19/2018 290 - MPV 05/19/2018 10.2 - Absolute nRBC 05/19/2018 <0.01 - Ferritin 05/19/2018 144.5 - Protein, Total 05/19/2018 6.9 - Albumin 05/19/2018 4.2 - Calcium 05/19/2018 9.3 - Bilirubin, Total 05/19/2018 0.4 - Alkaline Phosphatase 05/19/2018 54 - AST 05/19/2018 30 - Glucose 05/19/2018 73* - BUN 05/19/2018 11 - Creatinine 05/19/2018 0.85 - Sodium 05/19/2018 139 - Potassium 05/19/2018 4.0 - Chloride 05/19/2018 101 - CO2 05/19/2018 26 - Anion Gap 05/19/2018 12 - ALT 05/19/2018 29 - eGFR- 05/19/2018 >60 - eGFR-All Other Races 05/19/2018 >60 - WSR 05/19/2018 16 ASSESSMENT/PLAN: 1. Anxiety - ICD9: 300.00, ICD10: F41.9 (primary diagnosis) - Continue current medication regimen. - ALPRAZOLAM 0.5 MG TABLET 2. Fibromyalgia - ICD9: 729.1, ICD10: M79.7 - Rheum 3. Raynaud's phenomenon without gangrene - ICD9: 443.0, ICD10: I73.00 - Rheum - Continue current medication regimen. 4. Obsessive-compulsive disorder, unspecified type - ICD9: 300.3, ICD10: F42.9 - Continue current medication regimen. - ALPRAZOLAM 0.5 MG TABLET 5. Essential hypertension - ICD9: 401.9, ICD10: I10 - suboptimal control - Continue current medication(s) - Recommended regular aerobic exercise. - Recommend home blood pressure monitoring, to bring results in on next visit - Goal of BP <130/80 3 mo f/u I agree with the Chief Complaint, ROS, and Past Histories independently gathered by the clinical sales support engineer and the remaining scribed note accurately describes my personal service to the patient. Esteban Nova MD The documentation for this note was completed by Shawnee Piper Ma acting as scribe for Esteban Nova MD. May 26, 2018 2:26 PM. Referring Provider: ESTEBAN NOVA [[id number]] Allergies As of Date: 05/26/2018 Noted Allergy Reaction CODEINE 12/10/2005 11 - Vomiting Date Reviewed: 05/26/2018 Reviewed by: Shawnee Piper Ma - Fully Assessed Reason for Visit: F/U 3 Month [443] Cmt: Fibro, Anxiety/OCD and HTN Primary Visit Diagnosis:Anxiety [F41.9] Other Visit Diagnoses:Fibromyalgia [M79.7] Raynaud's phenomenon without gangrene [I73.00] Obsessive-compulsive disorder, unspecified type [F42.9] Essential hypertension [I10] Hypothyroidism, unspecified type [E03.9] Positive HANG (antinuclear antibody) [R76.8] Order(s):ALPRAZolam (XANAX) 0.5 mg tabletTake 1 tablet by mouth three times daily as needed for up to 90 days.Disp: 90 tabletRfl: 2 lisinopril (ZESTRIL, PRINIVIL) 10 mg tabletTake 1 tablet by mouth once daily.Disp: 90 tabletRfl: 3 Prescriptions as of 05/26/2018 Sig: FOLIC ACID 1 MG TABLET Take 1 tablet by mouth twice * LEUCOVORIN CALCIUM 15 MG TABL* Take 15 mg by mouth once each* METHOTREXATE SODIUM 2.5 MG TA* TAKE 6 TABLETS BY MOUTH ONCE * AMLODIPINE 5 MG TABLET Take 5 mg by mouth once daily. ALPRAZOLAM 0.5 MG TABLET Take 1 tablet by mouth three * LISINOPRIL 10 MG TABLET Take 1 tablet by mouth once d* CYCLOBENZAPRINE 10 MG TABLET Take 1 tablet by mouth daily * VENLAFAXINE ER 150 MG CAPSULE* Take 1 capsule by mouth once * HYDROXYCHLOROQUINE 200 MG TAB* Take 200 mg by mouth twice da* CHOLECALCIFEROL (VITAMIN D3) * Take 1 capsule by mouth once * TURMERIC ROOT EXTRACT 500 MG * Take 1 capsule by mouth once * CYANOCOBALAMIN (VIT B-12) 5,0* Take 1 tablet by mouth once d* SOUR CABRERA EXTRACT 1,000 MG * Take 1 capsule by mouth once * Problem List As Of Date 05/26/2018 Noted Resolved Anxiety [F41.9] INVALID FOR* Hypothyroidism [E03.9] INVALID FOR* Paresthesia of both feet [R20.2] INVALID FOR* Neuropathy [G62.9] INVALID FOR* Discoloration of skin of toe [L81.9] INVALID FOR* Raynaud's phenomenon [I73.00] INVALID FOR* Pain in both feet [M79.671, M79.672] INVALID FOR*03/03/2018 Concern about neurological disease without diag*INVALID FOR*03/03/2018 OCD (obsessive compulsive disorder) [F42.9] INVALID FOR* Essential hypertension [I10] INVALID FOR* Obesity, Class II, BMI 35-39.9 [E66.9] INVALID FOR* Fibromyalgia [M79.7] INVALID FOR* Positive HANG (antinuclear antibody) [R76.8] INVALID FOR* Prescriptions ordered this encounter Disp Refills Start End ALPRAZOLAM 0.5 MG TABLET 90 t* 2 05/26/2018 08/24/2018 Class: Print RX Route: ORAL Sig: Take 1 tablet by mouth three times daily as needed for up to 90 days. LISINOPRIL 10 MG TABLET 90 t* 3 05/26/2018 Route: ORAL Sig: Take 1 tablet by mouth once daily. Medications Discontinued During This Encounter ALPRAZolam (XANAX) 0.5 mg tablet 90 t* 2 05/19/2018 05/26/2018 Class: Call Rx Cmt: This prescription was filled on 05/18/2018. Any refills authorized will be placed on file. Sig: TAKE ONE TABLET BY MOUTH THREE TIMES DAILY NEEDED FOR ANXIETY Disc: Reason for discontinue is not on file. lisinopril (ZESTRIL, PRINIVIL) 10 mg* 90 t* 3 11/05/2017 05/26/2018 Sig: Take 1 tablet by mouth once daily. Disc: Reason for discontinue is not on file. Disposition: Return in about 3 months (around 08/26/2018). Follow-up and Disposition History Recorded Encounter Status:Closed by ESTEBAN NOVA MD on 05/26/18 CBC Collected: 05/19/2018 Status: F Source: [place] 1:37 PM [facility] REPOSITORY TYPE CODE TESTS RESULT OUT OF REFERENCE UNITS RANGE LAB WBC 3.70-11.00 k/uL WBC 6.06 LAB RBC 3.90-5.20 m/uL RBC 4.23 LAB HGB 11.5-15.5 g/dL Hemoglobin 13.2 LAB HCT 36.0-46.0 % Hematocrit 41.2 LAB MCV 80.0-100.0 fL MCV 97.4 LAB MCH 26.0-34.0 pG MCH 31.2 LAB MCHC 30.5-36.0 g/dL MCHC 32.0 LAB RDWCV 11.5-15.0 % RDW-CV 14.0 LAB PLTCT 150-400 k/uL Platelet Count 290 LAB MPV 9.0-12.7 fL MPV 10.2 LAB ABSNUC <0.01 k/uL Absolute nRBC <0.01 Performed By: #### CBC, WSR, CMP, FERR, TSH #### [facility] [address] [place], [place] [address] SED RATE WESTERGREN Collected: 05/19/2018 Status: F Source: [place] 1:37 PM [facility] REPOSITORY TYPE CODE TESTS RESULT OUT OF REFERENCE UNITS RANGE LAB WSR 0-20 mm/hr Sed Rate Westergren 16 Performed By: #### CBC, WSR, CMP, FERR, TSH #### [facility] [address] [place], [place] [address] COMP METABOLIC PANEL Collected: 05/19/2018 Status: F Source: [place] 1:37 PM [facility] REPOSITORY TYPE CODE TESTS RESULT OUT OF REFERENCE UNITS RANGE LAB TP 6.3-8.0 g/dL Protein, Total 6.9 LAB ALB 3.9-4.9 g/dL Albumin 4.2 LAB CA 8.5-10.2 mg/dL Calcium, Total 9.3 LAB TBIL 0.2-1.3 mg/dL Bilirubin, Total 0.4 LAB ALKP 34-123 U/L Alkaline Phosphatase 54 LAB AST 13-35 U/L AST 30 LAB GLU 74-99 mg/dL Low Glucose 73 Result Comment: The [place] [employer] Association (ADA) provides guidance for cutoff values for fasting glucose and random glucose. The ADA defines fasting as no caloric intake for at least 8 hours. Fas ting plasma glucose results between 100 to 125 mg/dL indicate increased risk for diabetes (prediabetes). Fasting plasma glucose results greater than or equal to 126 mg/dL meet the criteria for diagnosis of diabetes. In the absence of unequivocal hyperglycemia, results should be confirmed by repeat testing. In a patient with classic symptoms of hyperglycemia or hyperglycemic crisis, random plasma glucose results greater than or equal to 200 mg/dL meet the criteria for diagnosis of diabetes. Reference: Standards of Medical Care in Diabetes 2016, [place] [employer] Association. Diabetes Care. 2016.39(Suppl 1). LAB BUN 7-21 mg/dL BUN 11 LAB CRET 0.58-0.96 mg/dL Creatinine 0.85 LAB NA 136-144 mmol/L Sodium 139 LAB K 3.7-5.1 mmol/L Potassium 4.0 LAB CL 97-105 mmol/L Chloride 101 LAB CO2 22-30 mmol/L CO2 26 LAB AGAP 9-18 mmol/L Anion Gap 12 LAB ALT 7-38 U/L ALT 29 LAB GFRAA eGFR- Amer. >60 LAB GFRNAA . eGFR-All Other Races >60 Result Comment: eGFR (Estimated GFR) Units of measure: mL/min/1.73 meters squared eGFR is derived from the reexpressed MDRD Study equation using the following parameters: serum creatinine, age, gender and race. The creatinine assay has been calibrated to be traceable to IDMS. An eGFR <60 mL/min/1.73m2 for >3 months is consistent with chronic kidney disease. Refer to KDOQI guidelines for clinical interpretation. In patients with unstable renal function, e.g. those with acute kidney injury, the eGFR may not accurately reflect actual GFR. Performed By: #### CBC, WSR, CMP, FERR, TSH #### [facility] [address] [place] [id number] FERRITIN Collected: 05/19/2018 Status: F Source: [place] 1:37 PM [facility] REPOSITORY TYPE CODE TESTS RESULT OUT OF REFERENCE UNITS RANGE LAB FERR 14.7-205.1 ng/mL Ferritin 144.5 Performed By: #### CBC, WSR, CMP, FERR, TSH #### [facility] [address] [place], [place] [address] TSH Collected: 05/19/2018 Status: F Source: [place] 1:37 PM [facility] REPOSITORY TYPE CODE TESTS RESULT OUT OF RANGE REFERENCE UNITS LAB TSH 0.400-5.500 uU/mL TSH 3.930 Result Comment: If the patient is , TSH reference range varies by gestational period: First Trimester 0.100-2.500 uU/mL Second Trimester 0.200-3.000 uU/mL Third Trimester 0.300-3.000 uU/mL References: 1. Connelly L, Char M, Jimbo EK, et al. Management of Thyroid Dysfunction during and : An Endocrine Society Clinical Practice Guideline. J Clin Endocrinol Metab, 2012:97:4791-3611. 2. Liam CALL. Overview of thyroid disease in . UpToDate. 2016. Accessed on January 04, 2016. Performed By: #### CBC, WSR, CMP, FERR, TSH #### [facility] [address] [place], [place] [address] PROGRESS Observed: 05/18/2018 Status: COMPLETED Source: [place] 2:27 PM [facility] REPOSITORY HNO ID: [id number] Author: Cora Dow LPN Service: (none) Author Type: (none) Type: Progress Notes Filed: 06/11/2018 3:03 AM Note Text: Pt advised of TSH order. Cora Dow DEVELOPMENT PROFESSIONAL CBC W/DIFF, AUTOMATED Collected: 05/12/2018 Status: F Source: [place] 1:24 PM [facility] REPOSITORY TYPE CODE TESTS RESULT OUT OF RANGE REFERENCE UNITS LAB L100.1000 4.4-11.0 K/mm3 Normal WBC 5.8 LAB L100.1200 4.2-5.4 M/mm3 Normal RBC 4.31 LAB L100.1300 12.0-15.0 g/dl Normal HGB 13.4 LAB L100.1400 37-47 % Normal HCT 40.3 LAB L100.1500 81-99 fL Normal MCV 93.5 LAB L100.1600 27.0-32.0 pg Normal MCH 31.1 LAB L100.1700 32-36 g/gl Normal MCHC 33.3 LAB L100.1810 11.6-14.6 % Normal RDW CV 13.9 LAB L100.1820 35.1-43.9 fl High RDW SD 45.7 LAB L100.1900 150-450 K/mm3 Normal PLT 302 LAB L100.2000 6.2-12.0 fl Normal MPV 10.1 LAB L100.2100 47-70 % Normal NEUT% 59.5 LAB L100.2200 19-41 % Normal LY% 27.8 LAB L100.2300 0-10 % Normal MONO% 9.6 LAB L100.2400 0-5 % Normal EO% 2.4 LAB L100.2500 0-1 % Normal BASO% 0.5 LAB L100.2550 0.0-0.9 % Normal IM GRAN % 0.200 Result Comment: IG% - Immature Granulocytes (promyelocytes, myelocytes and metamyelocytes) > 1% indicates that a LEFT SHIFT is Present. LAB L100.2620 2.0-7.7 X10 3/uL Normal Absolute Neut 3.5 LAB L100.2720 0.83-4.51 X10 3/ul Normal Absolute Lymph 1.62 Performed By: #### L100.0100 #### [facility] [address] [place], [place], [id number] COMPREHENSIVE METABOLIC Collected: 05/12/2018 Status: F Source: [place] 1:24 PM [facility] REPOSITORY TYPE CODE TESTS RESULT OUT OF RANGE REFERENCE UNITS LAB L501.0100 74-106 mg/dL Normal GLU 80 Result Comment: Please note revised GLUCOSE reference range effective 2017. LAB L501.1000 7-18 mg/dL Normal BUN 14 LAB L501.1100 0.55-1.02 mg/dL Normal CREAT,SERUM 0.75 Result Comment: The validity of the calculated GFR AND GFRAA in patients over 70 years has not been determined. Clinical correlation is essential. LAB L501.1110 >60 mL/min Normal EST GFR 87 Result Comment: Non- GFR Calc LAB L501.1115 >60 mL/min Normal EST GFR - AA 106 Result Comment: GFR Calc LAB L501.1300 10-20 RATIO Normal BUN/CRE 18.6 LAB L501.1500 6.4-8.2 g/dL T Normal PROT 7.9 LAB L501.1800 3.2-5.0 g/dL Normal ALB 3.9 LAB L501.1950 2.2-4.2 g/dL Normal GLOB 4.0 LAB L501.2000 0.9-2.4 RATIO Normal A/G 1.0 LAB L501.2200 8.5-10.1 mg/dL CA Normal 8.6 LAB L501.4100 15-37 U/L Normal AST 20 LAB L501.4305 45-117 U/L Normal ALK P 73 LAB L501.4405 13-56 U/L Normal ALT 38 LAB L501.4600 0.20-1.00 mg/dL T Normal BILI 0.30 LAB L501.5300 136-145 mmol/L NA Normal 137 LAB L501.5600 3.5-5.1 mmol/L K Normal 3.9 LAB L501.5900 98-107 mmol/L CL Normal 105 LAB L501.6100 21.0-32.0 mmol/L Normal CO2 28.0 LAB L501.6200 5-15 Low GAP 4 Performed By: #### L500.4050 #### [facility] [address] [place], [address] CNPTOUTREACH Observed: 05/11/2018 Status: COMPLETED Source: [place] 12:00 AM [facility] REPOSITORY Patient Outreach (INTMWH) SUZANNE GARZA ([id number]) 1970 F Date Time Provider Department 05/11/18 [facility] During your visit today, we recorded the following information about you: Cora Dow LPN 06/11/2018 3:03 AM Signed Pt advised of TSH order. Cora Dow LPN Allergies As of Date: 05/11/2018 Noted Allergy Reaction CODEINE 12/10/2005 11 - Vomiting Date Reviewed: 03/03/2018 Reviewed by: Shawnee Piper Ma - Fully Assessed Visit Diagnosis:Medication management [Z79.899] Order(s):[facility] [SQTSH] Order #: [id number] FUTURE Prescriptions as of 05/11/2018 Sig: CYCLOBENZAPRINE 10 MG TABLET Take 1 tablet by mouth daily * VENLAFAXINE ER 150 MG CAPSULE* Take 1 capsule by mouth once * X ALPRAZOLAM 0.5 MG TABLET TAKE 1 TABLET BY MOUTH 3 TIME* X LISINOPRIL 10 MG TABLET Take 1 tablet by mouth once d* HYDROXYCHLOROQUINE 200 MG TAB* Take 200 mg by mouth twice da* CHOLECALCIFEROL (VITAMIN D3) * Take 1 capsule by mouth once * Problem List As Of Date 05/11/2018 Noted Resolved Anxiety [F41.9] INVALID FOR* Hypothyroidism [E03.9] INVALID FOR* Paresthesia of both feet [R20.2] INVALID FOR* Neuropathy [G62.9] INVALID FOR* Discoloration of skin of toe [L81.9] INVALID FOR* Raynaud's phenomenon [I73.00] INVALID FOR* Pain in both feet [M79.671, M79.672] INVALID FOR*03/03/2018 Concern about neurological disease without diag*INVALID FOR*03/03/2018 OCD (obsessive compulsive disorder) [F42.9] INVALID FOR* Essential hypertension [I10] INVALID FOR* Obesity, Class II, BMI 35-39.9 [E66.9] INVALID FOR* Fibromyalgia [M79.7] INVALID FOR* Encounter Status:Closed by KENISHA PRODUSER on 06/11/18 CBC W/DIFF, AUTOMATED Collected: 03/09/2018 Status: F Source: [place] 3:41 PM [facility] REPOSITORY TYPE CODE TESTS RESULT OUT OF RANGE REFERENCE UNITS LAB L100.1000 4.4-11.0 K/mm3 Normal WBC 6.2 LAB L100.1200 4.2-5.4 M/mm3 Normal RBC 4.63 LAB L100.1300 12.0-15.0 g/dl Normal HGB 14.4 LAB L100.1400 37-47 % Normal HCT 42.6 LAB L100.1500 81-99 fL Normal MCV 92.0 LAB L100.1600 27.0-32.0 pg Normal MCH 31.1 LAB L100.1700 32-36 g/gl Normal MCHC 33.8 LAB L100.1810 11.6-14.6 % Normal RDW CV 13.3 LAB L100.1820 35.1-43.9 fl High RDW SD 44.4 LAB L100.1900 150-450 K/mm3 Normal PLT 288 LAB L100.2000 6.2-12.0 fl Normal MPV 10.4 LAB L100.2100 47-70 % Normal NEUT% 59.0 LAB L100.2200 19-41 % Normal LY% 27.5 LAB L100.2300 0-10 % High MONO% 10.9 LAB L100.2400 0-5 % Normal EO% 2.0 LAB L100.2500 0-1 % Normal BASO% 0.3 LAB L100.2550 0.0-0.9 % Normal IM GRAN % 0.300 Result Comment: IG% - Immature Granulocytes (promyelocytes, myelocytes and metamyelocytes) > 1% indicates that a LEFT SHIFT is Present. LAB L100.2620 2.0-7.7 X10 3/uL Normal Absolute Neut 3.6 LAB L100.2720 0.83-4.51 X10 3/ul Normal Absolute Lymph 1.69 Performed By: #### L100.0100 #### [facility] [address] [place], [address] COMPREHENSIVE METABOLIC Collected: 03/09/2018 Status: F Source: [place] [facility] 3:41 PM [facility] REPOSITORY TYPE CODE TESTS RESULT OUT OF RANGE REFERENCE UNITS LAB L501.0100 74-106 mg/dL Normal GLU 85 Result Comment: Please note revised GLUCOSE reference range effective 2017. LAB L501.1000 7-18 mg/dL Normal BUN 8 LAB L501.1100 0.55-1.02 mg/dL Normal CREAT,SERUM 0.88 Result Comment: The validity of the calculated GFR AND GFRAA in patients over 70 years has not been determined. Clinical correlation is essential. LAB L501.1110 >60 mL/min Normal EST GFR 73 Result Comment: Non- GFR Calc LAB L501.1115 >60 mL/min Normal EST GFR - AA 88 Result Comment: GFR Calc LAB L501.1300 10-20 RATIO Low BUN/CRE 9.1 LAB L501.1500 6.4-8.2 g/dL High T PROT 8.3 LAB L501.1800 3.2-5.0 g/dL Normal ALB 3.9 LAB L501.1950 2.2-4.2 g/dL High GLOB 4.4 LAB L501.2000 0.9-2.4 RATIO Normal A/G 0.9 LAB L501.2200 8.5-10.1 mg/dL Normal CA 8.8 LAB L501.4100 15-37 U/L Normal AST 20 LAB L501.4305 45-117 U/L Normal ALK P 66 LAB L501.4405 13-56 U/L Normal ALT 28 LAB L501.4600 0.20-1.00 mg/dL Normal T BILI 0.30 LAB L501.5300 136-145 mmol/L Normal NA 139 LAB L501.5600 3.5-5.1 mmol/L Normal K 4.1 LAB L501.5900 98-107 mmol/L Normal CL 106 LAB L501.6100 21.0-32.0 mmol/L Normal CO2 26.0 LAB L501.6200 5-15 Normal GAP 7 Performed By: #### L500.4050 #### [facility] [address] [place], [address] PROGRESS Observed: 03/03/2018 Status: COMPLETED Source: [place] 2:00 PM [facility] REPOSITORY HNO ID: [id number] Author: Esteban Nova Service: (none) Author Type: Physician Type: Progress Notes Filed: 03/03/2018 2:26 PM Note Text: Chief Complaint Patient presents with: F/U 1 month: Weight HPI Suzanne Garza is a 47 year old female who presents here today for a 1 mo f/u. Pt here today to follow up on Adipex medication. Fatigue - Even with taking Adipex she feels that it didn't increase her energy that much. She would take her pill in the am and be tired by noon. Reported back in October 2016 when medications were increased Prozac/Effexor Weight - Has gained 2 lbs since last visit, overall losing 7 lbs in 3 months. Denies eating more over the last month. Medication did help control appetite but she wasn't eating that much. OCD/Anxiety - Medication is helping control and it's not as bad as it was previously. Currently taking Effexor 150 mg once daily and Xanax 0.5 mg 3 tabs at bedtime. Rheum - Following with Dr. Hayden every 6 months. Feels slightly improved but does have some bilateral ankle/wrist pain. Taking Plaquenil 200 mg 1 tab po bid. Insomnia - Wakes up several times a night and has tried medication with no relief. She is not sure if she snore's or has apnea events, none reported but unsure. Currently taking Xanax 0.5 mg 3 tabs at bedtime. Previously tried Trazodone and Restoril. HTN - Denies checking BP at home. Denies any chest pain, sob or dizziness. Currently taking Lisinopril 10 mg 1 tab po once daily. Past medical history, appointments, medications, allergies reviewed. Previous Medical History PAST MEDICAL HISTORY Diagnosis Date - Abnormal mammogram, unspecified right - Anxiety on meds - Mental disorder Previous Surgical History PAST SURGICAL HISTORY Procedure Laterality Date - EGD W/O OR W/BRUSH/WASH 06/29/14 EGD - STEREOTACTIC CORE BIOPSY 04/12/09 right breast - VAGINAL HYSTERECTOMY ovaries not taken Family History FAMILY HISTORY Problem Relation Age of Onset - Thyroid Mother - Hypertension Mother - Diabetes Mother - Ischemic Heart Disease Father age 55 of [place] Patient Allergies ALLERGIES Allergen Reactions - Codeine Vomiting Current Medications Current Outpatient Prescriptions on File Prior to Visit: ALPRAZolam (XANAX) 0.5 mg tablet TAKE 1 TABLET BY MOUTH 3 TIMES DAILY NEEDED FOR ANXIETY venlafaxine ER (EFFEXOR XR) 150 mg 24 hr capsule Take 1 capsule by mouth once daily. Phentermine HCl 37.5 mg tablet Take 1 tablet by mouth once daily for 30 days. lisinopril (ZESTRIL, PRINIVIL) 10 mg tablet Take 1 tablet by mouth once daily. hydroxychloroquine (PLAQUENIL) 200 mg tablet Take 200 mg by mouth twice daily. Cholecalciferol, Vitamin D3, 1,000 unit cap Take 1 capsule by mouth once daily. No current facility-administered medications on file prior to visit. 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 General Appearance: Well appearing, alert, in no acute distress, well-hydrated, well nourished. and Obese. Lungs: Lungs clear to auscultation. No wheezing, rhonchi, rales. Heart: RRR without murmur, gallop, or rubs. No ectopy. Health Maintenance List INFLUENZA(1) due on 03/20/2018 MAMMOGRAM due on 09/02/2018 ANNUAL PCP TEAM CHRONIC DISEASE VISIT due on 02/03/2019 BLOOD PRESSURE CONTROLLED due on 02/03/2019 DIABETES SCREEN due on 04/01/2020 LIPID SCREEN due on 03/25/2022 DTAP,TDAP,TD(3 - Td) due on 12/18/2025 Data reviewed External labs ASSESSMENT/PLAN: 1. Obesity, Class III, BMI 40-49.9 (morbid obesity) (HCC) - ICD9: 278.01, ICD10: E66.01 (primary diagnosis) Continue to watch diet 2. Anxiety - ICD9: 300.00, ICD10: F41.9 Continue current medications. 3. Essential hypertension - ICD9: 401.9, ICD10: I10 - good control - Continue current medication(s) - Recommended regular aerobic exercise. - Discussed need and benefit for weight loss. - Goal of BP <140/90 4. . Fibromyalgia - ICD9: 729.1, ICD10: M79.7 Flexeril at bedtime 3 mo f/u - check on Flexeril Esteban Nova MD The documentation for this note was completed by Shawnee Piper Ma acting as scribe for Esteban Nova MD. March 03, 2018 2:00 PM. CNOV Observed: 03/03/2018 Status: COMPLETED Source: [place] 2:00 PM [facility] REPOSITORY Office Visit ([facility]) SUZANNE GARZA ([id number]) 1970 F Date Time Provider Department 03/03/18 2:00 PM [facility] During your visit today, we recorded the following information about you: Pulse Respiration Blood pressure Weight 84/minute 16/minute 114/78 109 kg Esteban Nova MD 03/03/2018 2:26 PM Signed Chief Complaint Patient presents with: F/U 1 month: Weight HPI Suzanne Herrera Greg is a 47 year old female who presents here today for a 1 mo f/u. Pt here today to follow up on Adipex medication. Fatigue - Even with taking Adipex she feels that it didn't increase her energy that much. She would take her pill in the am and be tired by noon. Reported back in October 2016 when medications were increased Prozac/Effexor Weight - Has gained 2 lbs since last visit, overall losing 7 lbs in 3 months. Denies eating more over the last month. Medication did help control appetite but she wasn't eating that much. OCD/Anxiety - Medication is helping control and it's not as bad as it was previously. Currently taking Effexor 150 mg once daily and Xanax 0.5 mg 3 tabs at bedtime. Rheum - Following with Dr. Hayden every 6 months. Feels slightly improved but does have some bilateral ankle/wrist pain. Taking Plaquenil 200 mg 1 tab po bid. Insomnia - Wakes up several times a night and has tried medication with no relief. She is not sure if she snore's or has apnea events, none reported but unsure. Currently taking Xanax 0.5 mg 3 tabs at bedtime. Previously tried Trazodone and Restoril. HTN - Denies checking BP at home. Denies any chest pain, sob or dizziness. Currently taking Lisinopril 10 mg 1 tab po once daily. Past medical history, appointments, medications, allergies reviewed. Previous Medical History PAST MEDICAL HISTORY Diagnosis Date - Abnormal mammogram, unspecified right - Anxiety on meds - Mental disorder Previous Surgical History PAST SURGICAL HISTORY Procedure Laterality Date - EGD W/O OR W/BRUSH/WASH 06/29/14 EGD - STEREOTACTIC CORE BIOPSY 04/12/09 right breast - VAGINAL HYSTERECTOMY ovaries not taken Family History FAMILY HISTORY Problem Relation Age of Onset - Thyroid Mother - Hypertension Mother - Diabetes Mother - Ischemic Heart Disease Father age 55 of [place] Patient Allergies ALLERGIES Allergen Reactions - Codeine Vomiting Current Medications Current Outpatient Prescriptions on File Prior to Visit: ALPRAZolam (XANAX) 0.5 mg tablet TAKE 1 TABLET BY MOUTH 3 TIMES DAILY NEEDED FOR ANXIETY venlafaxine ER (EFFEXOR XR) 150 mg 24 hr capsule Take 1 capsule by mouth once daily. Phentermine HCl 37.5 mg tablet Take 1 tablet by mouth once daily for 30 days. lisinopril (ZESTRIL, PRINIVIL) 10 mg tablet Take 1 tablet by mouth once daily. hydroxychloroquine (PLAQUENIL) 200 mg tablet Take 200 mg by mouth twice daily. Cholecalciferol, Vitamin D3, 1,000 unit cap Take 1 capsule by mouth once daily. No current facility-administered medications on file prior to visit. 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 General Appearance: Well appearing, alert, in no acute distress, well-hydrated, well nourished. and Obese. Lungs: Lungs clear to auscultation. No wheezing, rhonchi, rales. Heart: RRR without murmur, gallop, or rubs. No ectopy. Health Maintenance List INFLUENZA(1) due on 03/20/2018 MAMMOGRAM due on 09/02/2018 ANNUAL PCP TEAM CHRONIC DISEASE VISIT due on 02/03/2019 BLOOD PRESSURE CONTROLLED due on 02/03/2019 DIABETES SCREEN due on 04/01/2020 LIPID SCREEN due on 03/25/2022 DTAP,TDAP,TD(3 - Td) due on 12/18/2025 Data reviewed External labs ASSESSMENT/PLAN: 1. Obesity, Class III, BMI 40-49.9 (morbid obesity) (HCC) - ICD9: 278.01, ICD10: E66.01 (primary diagnosis) Continue to watch diet 2. Anxiety - ICD9: 300.00, ICD10: F41.9 Continue current medications. 3. Essential hypertension - ICD9: 401.9, ICD10: I10 - good control - Continue current medication(s) - Recommended regular aerobic exercise. - Discussed need and benefit for weight loss. - Goal of BP <140/90 4. . Fibromyalgia - ICD9: 729.1, ICD10: M79.7 Flexeril at bedtime 3 mo f/u - check on Flexeril Esteban Nova MD The documentation for this note was completed by Shawnee Piper Ma acting as scribe for Esteban Nova MD. March 03, 2018 2:00 PM. Referring Provider: ESTEBAN NOVA [[id number]] Allergies As of Date: 03/03/2018 Noted Allergy Reaction CODEINE 12/10/2005 11 - Vomiting Date Reviewed: 03/03/2018 Reviewed by: Shawnee Piper Ma - Fully Assessed Reason for Visit: F/U 1 month [1175] Cmt: Weight Primary Visit Diagnosis:Anxiety [F41.9] Other Visit Diagnoses:Obesity, Class III, BMI 40-49.9 (morbid obesity) (HCC) [E66.01] Essential hypertension [I10] Obesity, Class II, BMI 35-39.9 [E66.9] Fibromyalgia [M79.7] Neuropathy (HCC) [G62.9] Hypothyroidism, unspecified type [E03.9] Obsessive-compulsive disorder, unspecified type [F42.9] Order(s):cyclobenzaprine (FLEXERIL) 10 mg tabletTake 1 tablet by mouth daily at bedtime.Disp: 30 tabletRfl: 5 Prescriptions as of 03/03/2018 Sig: ALPRAZOLAM 0.5 MG TABLET TAKE 1 TABLET BY MOUTH 3 TIME* VENLAFAXINE ER 150 MG CAPSULE* Take 1 capsule by mouth once * PHENTERMINE 37.5 MG TABLET Take 1 tablet by mouth once d* LISINOPRIL 10 MG TABLET Take 1 tablet by mouth once d* HYDROXYCHLOROQUINE 200 MG TAB* Take 200 mg by mouth twice da* CHOLECALCIFEROL (VITAMIN D3) * Take 1 capsule by mouth once * CYCLOBENZAPRINE 10 MG TABLET Take 1 tablet by mouth daily * Problem List As Of Date 03/03/2018 Noted Resolved Anxiety [F41.9] INVALID FOR* Hypothyroidism [E03.9] INVALID FOR* Paresthesia of both feet [R20.2] INVALID FOR* Neuropathy [G62.9] INVALID FOR* Discoloration of skin of toe [L81.9] INVALID FOR* Raynaud's phenomenon [I73.00] INVALID FOR* Pain in both feet [M79.671, M79.672] INVALID FOR*03/03/2018 Concern about neurological disease without diag*INVALID FOR*03/03/2018 OCD (obsessive compulsive disorder) [F42.9] INVALID FOR* Essential hypertension [I10] INVALID FOR* Obesity, Class II, BMI 35-39.9 [E66.9] INVALID FOR* Fibromyalgia [M79.7] INVALID FOR* Prescriptions ordered this encounter Disp Refills Start End CYCLOBENZAPRINE 10 MG TABLET 30 t* 5 03/03/2018 03/03/2018 Route: ORAL Sig: Take 1 tablet by mouth daily at bedtime. CYCLOBENZAPRINE 10 MG TABLET 30 t* 5 03/03/2018 08/30/2018 Route: ORAL Sig: Take 1 tablet by mouth daily at bedtime. Medications Discontinued During This Encounter cyclobenzaprine (FLEXERIL) 10 mg tab* 30 t* 5 03/03/2018 03/03/2018 Route: ORAL Sig: Take 1 tablet by mouth daily at bedtime. Disc: Reason for discontinue is not on file. Disposition: Return in about 3 months (around 06/03/2018). Follow-up and Disposition History Recorded Encounter Status:Closed by ESTEBAN NOVA MD on 03/03/18 PROGRESS Observed: 02/03/2018 Status: COMPLETED Source: [place] 2:22 PM [facility] REPOSITORY O ID: [id number] Author: Esteban Nova Service: (none) Author Type: Physician Type: Progress Notes Filed: 02/03/2018 6:43 PM Note Text: Chief Complaint Patient presents with: F/U 1 month HPI Suzanne Garza is a 47 year old female who presents here today for 1 month follow up. Obesity: follow up on 2nd month of Adipex. She states that she does not eat a lot, but also does not move a lot either. She states that the medication makes her tired, denies any trouble sleeping with the medication. It is suppressing the appetite. She does feel that it helps with giving her some energy. She is down 3 lbs in the last month. Depression/Anxiety: feels that the depression and anxiety is a little better with the Xanax 0.5, 3 tablets at bedtime to help her sleep and wind down and Effexor 150 mg daily. She does not feel that the anxiety and depression has gotten any worse. HTN: does not check BP at home. Denies any chest pains, dizziness, or SOB. Is taking Lisinopril [address] Hayden for Fibromyalgia. Is taking Plaquenil 200 mg. Left shoulder pain x 1 week constant, worse as the day goes on. She states it is 7/10, sharp pain. Good ROM. Has been using ibuprofen. No heat or ice used. No injury. Thinks it is stress related, does have fibromyalgia. Past medical history, appointments, medications, allergies reviewed. Previous Medical History PAST MEDICAL HISTORY Diagnosis Date - Abnormal mammogram, unspecified right - Anxiety on meds - Mental disorder Previous Surgical History PAST SURGICAL HISTORY Procedure Laterality Date - EGD W/O OR W/BRUSH/WASH 06/29/14 EGD - STEREOTACTIC CORE BIOPSY 04/12/09 right breast - VAGINAL HYSTERECTOMY ovaries not taken Family History FAMILY HISTORY Problem Relation Age of Onset - Thyroid Mother - Hypertension Mother - Diabetes Mother - Ischemic Heart Disease Father age 55 of [place] Patient Allergies ALLERGIES Allergen Reactions - Codeine Vomiting Current Medications Current Outpatient Prescriptions on File Prior to Visit: ALPRAZolam (XANAX) 0.5 mg tablet Take 1 tablet by mouth three times daily as needed for Anxiety for up to 90 days. lisinopril (ZESTRIL, PRINIVIL) 10 mg tablet Take 1 tablet by mouth once daily. hydroxychloroquine (PLAQUENIL) 200 mg tablet Take 200 mg by mouth twice daily. venlafaxine XR (EFFEXOR XR) 150 mg 24 hr capsule Take 1 capsule by mouth once daily. Cholecalciferol, Vitamin D3, 1,000 unit cap Take 1 capsule by mouth once daily. No current facility-administered medications on file prior to visit. 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 General Appearance: Well appearing, alert, in no acute distress, well-hydrated, well nourished. and Obese. Lungs: Lungs clear to auscultation. No wheezing, rhonchi, rales. Heart: RRR without murmur, gallop, or rubs. No ectopy. Health Maintenance List INFLUENZA(1) due on 03/20/2018 MAMMOGRAM due on 09/02/2018 ANNUAL PCP TEAM CHRONIC DISEASE VISIT due on 12/30/2018 BLOOD PRESSURE CONTROLLED due on 12/30/2018 DIABETES SCREEN due on 04/01/2020 LIPID SCREEN due on 03/25/2022 DTAP,TDAP,TD(3 - Td) due on 12/18/2025 Data reviewed none ASSESSMENT/PLAN: 1. Obesity, Class III, BMI 40-49.9 (morbid obesity) (HCC) - ICD9: 278.01, ICD10: E66.01 (primary diagnosis) Recommend continue exercise and watching diet - PHENTERMINE 37.5 MG TABLET 2. Anxiety - ICD9: 300.00, ICD10: F41.9 Continue current medications. 3. Essential hypertension - ICD9: 401.9, ICD10: I10 - good control - Continue current medication(s) - Recommended regular aerobic exercise. - Recommend home blood pressure monitoring, to bring results in on next visit - Goal of BP <140/90 4. Obsessive-compulsive disorder, unspecified type - ICD9: 300.3, ICD10: F42.9 Continue current medications. 5. Fibromyalgia - ICD9: 729.1, ICD10: M79.7 Continue current medications. Continue with Dr. Hayden Follow up in 1 month. Esteban Nova MD The documentation for this note was completed by Joleen Mtz Ma acting as scribe for Esteban Nova MD. February 03, 2018 2:22 PM. CNOV Observed: 02/03/2018 Status: COMPLETED Source: [place] 2:20 PM [facility] REPOSITORY Office Visit (FAMPWS) SUZANNE GARZA ([id number]) 1970 F Date Time Provider Department 02/03/18 2:20 PM ESTEBAN NOVA During your visit today, we recorded the following information about you: Pulse Respiration Blood pressure Weight 72/minute 16/minute 120/78 108.2 kg Height 1.651 m Esteban Nova MD 02/03/2018 6:43 PM Signed Chief Complaint Patient presents with: F/U 1 month HPI Suzanne Garza is a 47 year old female who presents here today for 1 month follow up. Obesity: follow up on 2nd month of Adipex. She states that she does not eat a lot, but also does not move a lot either. She states that the medication makes her tired, denies any trouble sleeping with the medication. It is suppressing the appetite. She does feel that it helps with giving her some energy. She is down 3 lbs in the last month. Depression/Anxiety: feels that the depression and anxiety is a little better with the Xanax 0.5, 3 tablets at bedtime to help her sleep and wind down and Effexor 150 mg daily. She does not feel that the anxiety and depression has gotten any worse. HTN: does not check BP at home. Denies any chest pains, dizziness, or SOB. Is taking Lisinopril [address] mg [address] Hayden for Fibromyalgia. Is taking Plaquenil 200 mg. Left shoulder pain x 1 week constant, worse as the day goes on. She states it is 7/10, sharp pain. Good ROM. Has been using ibuprofen. No heat or ice used. No injury. Thinks it is stress related, does have fibromyalgia. Past medical history, appointments, medications, allergies reviewed. Previous Medical History PAST MEDICAL HISTORY Diagnosis Date - Abnormal mammogram, unspecified right - Anxiety on meds - Mental disorder Previous Surgical History PAST SURGICAL HISTORY Procedure Laterality Date - EGD W/O OR W/BRUSH/WASH 06/29/14 EGD - STEREOTACTIC CORE BIOPSY 04/12/09 right breast - VAGINAL HYSTERECTOMY ovaries not taken Family History FAMILY HISTORY Problem Relation Age of Onset - Thyroid Mother - Hypertension Mother - Diabetes Mother - Ischemic Heart Disease Father age 55 of [place] Patient Allergies ALLERGIES Allergen Reactions - Codeine Vomiting Current Medications Current Outpatient Prescriptions on File Prior to Visit: ALPRAZolam (XANAX) 0.5 mg tablet Take 1 tablet by mouth three times daily as needed for Anxiety for up to 90 days. lisinopril (ZESTRIL, PRINIVIL) 10 mg tablet Take 1 tablet by mouth once daily. hydroxychloroquine (PLAQUENIL) 200 mg tablet Take 200 mg by mouth twice daily. venlafaxine XR (EFFEXOR XR) 150 mg 24 hr capsule Take 1 capsule by mouth once daily. Cholecalciferol, Vitamin D3, 1,000 unit cap Take 1 capsule by mouth once daily. No current facility-administered medications on file prior to visit. 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 General Appearance: Well appearing, alert, in no acute distress, well-hydrated, well nourished. and Obese. Lungs: Lungs clear to auscultation. No wheezing, rhonchi, rales. Heart: RRR without murmur, gallop, or rubs. No ectopy. Health Maintenance List INFLUENZA(1) due on 03/20/2018 MAMMOGRAM due on 09/02/2018 ANNUAL PCP TEAM CHRONIC DISEASE VISIT due on 12/30/2018 BLOOD PRESSURE CONTROLLED due on 12/30/2018 DIABETES SCREEN due on 04/01/2020 LIPID SCREEN due on 03/25/2022 DTAP,TDAP,TD(3 - Td) due on 12/18/2025 Data reviewed none ASSESSMENT/PLAN: 1. Obesity, Class III, BMI 40-49.9 (morbid obesity) (HCC) - ICD9: 278.01, ICD10: E66.01 (primary diagnosis) Recommend continue exercise and watching diet - PHENTERMINE 37.5 MG TABLET 2. Anxiety - ICD9: 300.00, ICD10: F41.9 Continue current medications. 3. Essential hypertension - ICD9: 401.9, ICD10: I10 - good control - Continue current medication(s) - Recommended regular aerobic exercise. - Recommend home blood pressure monitoring, to bring results in on next visit - Goal of BP <140/90 4. Obsessive-compulsive disorder, unspecified type - ICD9: 300.3, ICD10: F42.9 Continue current medications. 5. Fibromyalgia - ICD9: 729.1, ICD10: M79.7 Continue current medications. Continue with Dr. Hayden Follow up in 1 month. Esteban Nova MD The documentation for this note was completed by Joleen Mtz Ma acting as scribe for Esteban Nova MD. February 03, 2018 2:22 PM. Referring Provider: ESTEBAN NOVA [[id number]] Allergies As of Date: 02/03/2018 Noted Allergy Reaction CODEINE 12/10/2005 11 - Vomiting Date Reviewed: 02/03/2018 Reviewed by: Joleen Mtz Ma - Fully Assessed Reason for Visit: F/U 1 month [1175] Primary Visit Diagnosis:Obesity, Class III, BMI 40-49.9 (morbid obesity) ([facility]) [E66.01] Other Visit Diagnoses:Anxiety [F41.9] Essential hypertension [I10] Obsessive-compulsive disorder, unspecified type [F42.9] Fibromyalgia [M79.7] Order(s):Phentermine HCl 37.5 mg tabletTake 1 tablet by mouth once daily for 30 days.Disp: 30 tabletRfl: 0 Prescriptions as of 02/03/2018 Sig: ALPRAZOLAM 0.5 MG TABLET Take 1 tablet by mouth three * LISINOPRIL 10 MG TABLET Take 1 tablet by mouth once d* HYDROXYCHLOROQUINE 200 MG TAB* Take 200 mg by mouth twice da* VENLAFAXINE ER 150 MG CAPSULE* Take 1 capsule by mouth once * CHOLECALCIFEROL (VITAMIN D3) * Take 1 capsule by mouth once * PHENTERMINE 37.5 MG TABLET Take 1 tablet by mouth once d* Problem List As Of Date 02/03/2018 Noted Resolved Anxiety [F41.9] INVALID FOR* Hypothyroidism [E03.9] INVALID FOR* Paresthesia of both feet [R20.2] INVALID FOR* Neuropathy [G62.9] INVALID FOR* Discoloration of skin of toe [L81.9] INVALID FOR* Raynaud's phenomenon [I73.00] INVALID FOR* Pain in both feet [M79.671, M79.672] INVALID FOR* Concern about neurological disease without diag*INVALID FOR* OCD (obsessive compulsive disorder) [F42.9] INVALID FOR* Essential hypertension [I10] INVALID FOR* Obesity, Class II, BMI 35-39.9 [E66.9] INVALID FOR* Fibromyalgia [M79.7] INVALID FOR* Prescriptions ordered this encounter Disp Refills Start End PHENTERMINE 37.5 MG TABLET 30 t* 0 02/03/2018 03/05/2018 Class: Print RX Route: ORAL Sig: Take 1 tablet by mouth once daily for 30 days. Medications Discontinued During This Encounter Phentermine HCl 37.5 mg tablet 30 t* 0 12/30/2017 02/03/2018 Class: Print RX Route: ORAL Sig: Take 1 tablet by mouth once daily for 30 days. Disc: Reason for discontinue is not on file. Disposition: Return in about 1 month (around 03/06/2018). Follow-up and Disposition History Recorded Encounter Status:Closed by ESTEBAN NOVA MD on 02/03/18 JEMMA Observed: 01/19/2018 Status: COMPLETED Source: [place] 12:00 AM [facility] REPOSITORY Patient Outreach ([facility]) SUZANNE GARZA ([id number]) 1970 F Date Time Provider Department 01/19/18 ESTEBAN NOVA [facility] During your visit today, we recorded the following information about you: Allergies As of Date: 01/19/2018 Noted Allergy Reaction CODEINE 12/10/2005 11 - Vomiting Date Reviewed: 12/30/2017 Reviewed by: Joleen Mtz Ma - Fully Assessed Visit Diagnosis:Medication management [Z79.899] Order(s):BASIC METABOLIC PNL [SQBMP] Order #: [id number] FUTURE Prescriptions as of 01/19/2018 Sig: X PHENTERMINE 37.5 MG TABLET Take 1 tablet by mouth once d* X ALPRAZOLAM 0.5 MG TABLET Take 1 tablet by mouth three * LISINOPRIL 10 MG TABLET Take 1 tablet by mouth once d* HYDROXYCHLOROQUINE 200 MG TAB* Take 200 mg by mouth twice da* X VENLAFAXINE ER 150 MG CAPSULE* Take 1 capsule by mouth once * CHOLECALCIFEROL (VITAMIN D3) * Take 1 capsule by mouth once * Problem List As Of Date 01/19/2018 Noted Resolved Anxiety [F41.9] INVALID FOR* Hypothyroidism [E03.9] INVALID FOR* Paresthesia of both feet [R20.2] INVALID FOR* Neuropathy [G62.9] INVALID FOR* Discoloration of skin of toe [L81.9] INVALID FOR* Raynaud's phenomenon [I73.00] INVALID FOR* Pain in both feet [M79.671, M79.672] INVALID FOR* Concern about neurological disease without diag*INVALID FOR* OCD (obsessive compulsive disorder) [F42.9] INVALID FOR* Essential hypertension [I10] INVALID FOR* Obesity, Class II, BMI 35-39.9 [E66.9] INVALID FOR* Fibromyalgia [M79.7] INVALID FOR* Encounter Status:Closed by YOAV DE on 04/30/18 MIKE Observed: 12/30/2017 Status: COMPLETED Source: [place] 1:20 PM [facility] REPOSITORY [facility] ([id number]) 1970 F Date Time Provider Department 12/30/17 1:20 PM [facility] During your visit today, we recorded the following information about you: Pulse Respiration Blood pressure Weight 72/minute 16/minute 124/72 109.3 kg Height 1.651 m Esteban Nova MD 12/30/2017 1:51 PM Signed Chief Complaint Patient presents with: F/U 1 month HPI Suzanne Garza is a 47 year old female who presents here today for 1 month follow up. Weight: pt finished her first month of adipex, her to refill 2nd script. She tolerates the medication fine, no problems sleeping. The medication is helping to suppress the appetite. Denies any exercise, but feels that the medication has given her more energy so she is able to do more house work. Is not watching diet, denies being hungry and when she is she just eats whatever is available. She is down 4 lbs since last months visit. HTN: Does not check BP at home. No chest pains, dizziness, or SOB. Is taking Lisinopril 10 mg daily. Fibro: follows with Dr. Hayden, [employer] who has pt taking Plaquenil 200 mg. Follows on a 6 month basis. Anxiety/OCD: feels this has been doing ok, still takes Xanax 0.5 mg every night before bed. Helps her sleep. She is also taking Effexor 150 mg at bedtime which has been helping. Past medical history, appointments, medications, allergies reviewed. Previous Medical History PAST MEDICAL HISTORY Diagnosis Date - Abnormal mammogram, unspecified right - Anxiety on meds - Mental disorder Previous Surgical History PAST SURGICAL HISTORY Procedure Laterality Date - EGD W/O OR W/BRUSH/WASH 06/29/14 EGD - STEREOTACTIC CORE BIOPSY 04/12/09 right breast - VAGINAL HYSTERECTOMY ovaries not taken Family History FAMILY HISTORY Problem Relation Age of Onset - Thyroid Mother - Hypertension Mother - Diabetes Mother - Ischemic Heart Disease Father age 55 of [place] Patient Allergies ALLERGIES Allergen Reactions - Codeine Vomiting Current Medications Current Outpatient Prescriptions on File Prior to Visit: ALPRAZolam (XANAX) 0.5 mg tablet Take 1 tablet by mouth three times daily as needed for Anxiety for up to 90 days. Phentermine HCl 37.5 mg tablet Take 1 tablet by mouth once daily for 30 days. lisinopril (ZESTRIL, PRINIVIL) 10 mg tablet Take 1 tablet by mouth once daily. hydroxychloroquine (PLAQUENIL) 200 mg tablet Take 200 mg by mouth twice daily. venlafaxine XR (EFFEXOR XR) 150 mg 24 hr capsule Take 1 capsule by mouth once daily. Cholecalciferol, Vitamin D3, 1,000 unit cap Take 1 capsule by mouth once daily. No current facility-administered medications on file prior to visit. 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 General Appearance: Well appearing, alert, in no acute distress, well-hydrated, well nourished., Obese. Lungs: Lungs clear to auscultation. No wheezing, rhonchi, rales. Heart: RRR without murmur, gallop, or rubs. No ectopy. Health Maintenance List MAMMOGRAM due on 09/02/2018 DIABETES SCREEN due on 04/01/2020 LIPID SCREEN due on 03/25/2022 DTAP,TDAP,TD(3 - Td) due on 12/18/2025 INFLUENZA Completed Data reviewed None ASSESSMENT/PLAN: 1. Essential hypertension - ICD9: 401.9, ICD10: I10 (primary diagnosis) - good control - Continue current medication(s) - Recommended regular aerobic exercise. - Recommend home blood pressure monitoring, to bring results in on next visit - Goal of BP <140/90 2. Obesity, Class III, BMI 40-49.9 (morbid obesity) (HCC) - ICD9: 278.01, ICD10: E66.01 Recommend exercise and healthy eating - PHENTERMINE 37.5 MG TABLET 3. Anxiety - ICD9: 300.00, ICD10: F41.9 Continue with effexor 150 mg Continue with xanax at bedtime 4. Obsessive-compulsive disorder, unspecified type - ICD9: 300.3, ICD10: F42.9 Continue with Effexor 150 mg Continue with xanax at bedtime 5. Fibromyalgia - ICD9: 729.1, ICD10: M79.7 Continue current medications. Continue to follow with Dr. Hayden Follow up in 1 month. Esteban Nova MD The documentation for this note was completed by Joleen Mtz Ma acting as scribe for Esteban Nova MD. December 30, 2017 1:17 PM. Referring Provider: ESTEBAN NOVA [[id number]] Allergies As of Date: 12/30/2017 Noted Allergy Reaction CODEINE 12/10/2005 11 - Vomiting Date Reviewed: 12/30/2017 Reviewed by: Joleen Mtz Ma - Fully Assessed Reason for Visit: F/U 1 month [1175] Primary Visit Diagnosis:Essential hypertension [I10] Other Visit Diagnoses:Obesity, Class III, BMI 40-49.9 (morbid obesity) ([facility]) [E66.01] Anxiety [F41.9] Obsessive-compulsive disorder, unspecified type [F42.9] Fibromyalgia [M79.7] Order(s):Phentermine HCl 37.5 mg tabletTake 1 tablet by mouth once daily for 30 days.Disp: 30 tabletRfl: 0 Prescriptions as of 12/30/2017 Sig: ALPRAZOLAM 0.5 MG TABLET Take 1 tablet by mouth three * LISINOPRIL 10 MG TABLET Take 1 tablet by mouth once d* HYDROXYCHLOROQUINE 200 MG TAB* Take 200 mg by mouth twice da* VENLAFAXINE ER 150 MG CAPSULE* Take 1 capsule by mouth once * CHOLECALCIFEROL (VITAMIN D3) * Take 1 capsule by mouth once * PHENTERMINE 37.5 MG TABLET Take 1 tablet by mouth once d* Problem List As Of Date 12/30/2017 Noted Resolved Anxiety [F41.9] INVALID FOR* Hypothyroidism [E03.9] INVALID FOR* Paresthesia of both feet [R20.2] INVALID FOR* Neuropathy [G62.9] INVALID FOR* Discoloration of skin of toe [L81.9] INVALID FOR* Raynaud's phenomenon [I73.00] INVALID FOR* Pain in both feet [M79.671, M79.672] INVALID FOR* Concern about neurological disease without diag*INVALID FOR* OCD (obsessive compulsive disorder) [F42.9] INVALID FOR* Essential hypertension [I10] INVALID FOR* Obesity, Class II, BMI 35-39.9 [E66.9] INVALID FOR* Fibromyalgia [M79.7] INVALID FOR* Prescriptions ordered this encounter Disp Refills Start End PHENTERMINE 37.5 MG TABLET 30 t* 0 12/30/2017 01/29/2018 Class: Print RX Route: ORAL Sig: Take 1 tablet by mouth once daily for 30 days. Medications Discontinued During This Encounter Phentermine HCl 37.5 mg tablet 30 t* 0 12/02/2017 12/30/2017 Class: Print RX Cmt: 40.90 - BMI Route: ORAL Sig: Take 1 tablet by mouth once daily for 30 days. Disc: Reason for discontinue is not on file. Disposition: Return in about 1 month (around 01/29/2018). Follow-up and Disposition History Recorded Encounter Status:Closed by ESTEBAN NOVA MD on 12/30/17 PROGRESS Observed: 12/30/2017 Status: COMPLETED Source: [place] 1:17 PM [facility] [place] REPOSITORY HNO ID: [id number] Author: Esteban Nova Service: (none) Author Type: Physician Type: Progress Notes Filed: 12/30/2017 1:51 PM Note Text: Chief Complaint Patient presents with: F/U 1 month HPI Suzanne Garza is a 47 year old female who presents here today for 1 month follow up. Weight: pt finished her first month of adipex, her to refill 2nd script. She tolerates the medication fine, no problems sleeping. The medication is helping to suppress the appetite. Denies any exercise, but feels that the medication has given her more energy so she is able to do more house work. Is not watching diet, denies being hungry and when she is she just eats whatever is available. She is down 4 lbs since last months visit. HTN: Does not check BP at home. No chest pains, dizziness, or SOB. Is taking Lisinopril 10 mg daily. Fibro: follows with Dr. Hayden, [employer] who has pt taking Plaquenil 200 mg. Follows on a 6 month basis. Anxiety/OCD: feels this has been doing ok, still takes Xanax 0.5 mg every night before bed. Helps her sleep. She is also taking Effexor 150 mg at bedtime which has been helping. Past medical history, appointments, medications, allergies reviewed. Previous Medical History PAST MEDICAL HISTORY Diagnosis Date - Abnormal mammogram, unspecified right - Anxiety on meds - Mental disorder Previous Surgical History PAST SURGICAL HISTORY Procedure Laterality Date - EGD W/O OR W/BRUSH/WASH 06/29/14 EGD - STEREOTACTIC CORE BIOPSY 04/12/09 right breast - VAGINAL HYSTERECTOMY ovaries not taken Family History FAMILY HISTORY Problem Relation Age of Onset - Thyroid Mother - Hypertension Mother - Diabetes Mother - Ischemic Heart Disease Father age 55 of [place] Patient Allergies ALLERGIES Allergen Reactions - Codeine Vomiting Current Medications Current Outpatient Prescriptions on File Prior to Visit: ALPRAZolam (XANAX) 0.5 mg tablet Take 1 tablet by mouth three times daily as needed for Anxiety for up to 90 days. Phentermine HCl 37.5 mg tablet Take 1 tablet by mouth once daily for 30 days. lisinopril (ZESTRIL, PRINIVIL) 10 mg tablet Take 1 tablet by mouth once daily. hydroxychloroquine (PLAQUENIL) 200 mg tablet Take 200 mg by mouth twice daily. venlafaxine XR (EFFEXOR XR) 150 mg 24 hr capsule Take 1 capsule by mouth once daily. Cholecalciferol, Vitamin D3, 1,000 unit cap Take 1 capsule by mouth once daily. No current facility-administered medications on file prior to visit. 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 General Appearance: Well appearing, alert, in no acute distress, well-hydrated, well nourished., Obese. Lungs: Lungs clear to auscultation. No wheezing, rhonchi, rales. Heart: RRR without murmur, gallop, or rubs. No ectopy. Health Maintenance List MAMMOGRAM due on 09/02/2018 DIABETES SCREEN due on 04/01/2020 LIPID SCREEN due on 03/25/2022 DTAP,TDAP,TD(3 - Td) due on 12/18/2025 INFLUENZA Completed Data reviewed None ASSESSMENT/PLAN: 1. Essential hypertension - ICD9: 401.9, ICD10: I10 (primary diagnosis) - good control - Continue current medication(s) - Recommended regular aerobic exercise. - Recommend home blood pressure monitoring, to bring results in on next visit - Goal of BP <140/90 2. Obesity, Class III, BMI 40-49.9 (morbid obesity) (HCC) - ICD9: 278.01, ICD10: E66.01 Recommend exercise and healthy eating - PHENTERMINE 37.5 MG TABLET 3. Anxiety - ICD9: 300.00, ICD10: F41.9 Continue with effexor 150 mg Continue with xanax at bedtime 4. Obsessive-compulsive disorder, unspecified type - ICD9: 300.3, ICD10: F42.9 Continue with Effexor 150 mg Continue with xanax at bedtime 5. Fibromyalgia - ICD9: 729.1, ICD10: M79.7 Continue current medications. Continue to follow with Dr. Hayden Follow up in 1 month. Esteban Nova MD The documentation for this note was completed by Joleen Mtz Ma acting as scribe for Esteban Nova MD. December 30, 2017 1:17 PM. CNOV Observed: 12/02/2017 Status: COMPLETED Source: [place] 2:20 PM [facility] REPOSITORY Office Visit (FAMPWS) SUZANNE GARZA ([id number]) 1970 F Date Time Provider Department 12/02/17 2:20 PM [facility] During your visit today, we recorded the following information about you: Pulse Respiration Blood pressure Weight 84/minute 16/minute 132/86 111.5 kg Esteban Nova MD 12/02/2017 2:46 PM Signed Chief Complaint Patient presents with: F/U 3 Month: Anxiety, OCD and HTN HPI Suzanne Garza is a 47 year old female who presents here today for a 3 mo f/u. Anxiety/OCD - Medication does help OCD symptoms but she still continues to check things over and over out of habit. Denies any issues with medication. Currently taking Xanax 0.5 mg 3 tabs po at bedtime and Effexor 150 mg 1 tab po once daily. HTN - Denies checking BP at home lately. Denies any chest pain, sob or dizziness. Currently taking Lisinopril 10 mg 1 tab po once daily. Rheum - Following with Dr. Hayden and now following up every 6 mo. Started Plaquenil 200 mg 1 tab po bid and feels that it does help her joint pain. Followed with [facility] where additional tests were completed. Fatigue - Still has constant fatigue and tired a lot. Feet/Legs - Experiencing more tingling in the last month from the the knees down, mainly in her calves and feet. Feet are becoming more purple, swelling and having a tingling sensation down that back of her legs. Was previously having discomfort when she stood on her feet for prolonged periods of time. Feels that she is not getting answers and she shouldn't being having these symptoms. Sleep - Was discussed with her by [facility] about having a sleep study done. She feels that she would not be able to tolerate the mask. Unsure if she snores or doesn't know if she has witness apnea events. She is tired and fatigued all the time. States that when she gets home Thursday after work, she doesn't want to leave her home til she has to go to work on Thursday due to having no energy. Weight keeps increasing due to being inactive, but not having much of an appetite. Willing to try Adipex. Past medical history, appointments, medications, allergies reviewed. Previous Medical History PAST MEDICAL HISTORY Diagnosis Date - Abnormal mammogram, unspecified right - Anxiety on meds - Mental disorder Previous Surgical History PAST SURGICAL HISTORY Procedure Laterality Date - EGD W/O OR W/BRUSH/WASH 06/29/14 EGD - STEREOTACTIC CORE BIOPSY 04/12/09 right breast - VAGINAL HYSTERECTOMY ovaries not taken Family History FAMILY HISTORY Problem Relation Age of Onset - Thyroid Mother - Hypertension Mother - Diabetes Mother - Ischemic Heart Disease Father age 55 of [place] Patient Allergies ALLERGIES Allergen Reactions - Codeine Vomiting Current Medications Current Outpatient Prescriptions on File Prior to Visit: lisinopril (ZESTRIL, PRINIVIL) 10 mg tablet Take 1 tablet by mouth once daily. hydroxychloroquine (PLAQUENIL) 200 mg tablet Take 200 mg by mouth twice daily. ALPRAZolam (XANAX) 0.5 mg tablet Take 1 tablet by mouth three times daily as needed for Anxiety for up to 90 days. venlafaxine XR (EFFEXOR XR) 150 mg 24 hr capsule Take 1 capsule by mouth once daily. Cholecalciferol, Vitamin D3, 1,000 unit cap Take 1 capsule by mouth once daily. No current facility-administered medications on file prior to visit. 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 General Appearance: Well appearing, alert, in no acute distress, well-hydrated, well nourished., Obese. Neck: Supple, no adenopathy; thyroid symmetric, normal size, no bruits. Lungs: Lungs clear to auscultation. No wheezing, rhonchi, rales. Heart: RRR without murmur, gallop, or rubs. No ectopy. Extremities: Bilateral feet purple in color, not cold to touch. Pulses are good in bilateral feet. Fett were purple when sitting; color improved when she moved to get up on the exam table. Health Maintenance List MAMMOGRAM due on 09/02/2018 DIABETES SCREEN due on 04/01/2020 LIPID SCREEN due on 03/25/2022 DTAP,TDAP,TD(3 - Td) due on 12/18/2025 INFLUENZA Completed Data reviewed External labs ASSESSMENT/PLAN: 1. Anxiety - ICD9: 300.00, ICD10: F41.9 (primary diagnosis) - Stable Continue current medication regimen. 2. Neuropathy (HCC) - ICD9: 355.9, ICD10: G62.9 - follow with Rheum 3. Raynaud's phenomenon without gangrene - ICD9: 443.0, ICD10: I73.00 - Rheum 4. Obsessive-compulsive disorder, unspecified type - ICD9: 300.3, ICD10: F42.9 - Stable 5. Essential hypertension - ICD9: 401.9, ICD10: I10 - good control - Continue current medication(s) - Recommended regular aerobic exercise. - Goal of BP <130/80 6. Obesity, Class III, BMI 40-49.9 (morbid obesity) (HCC) - ICD9: 278.01, ICD10: E66.01 - Start Adipex Follow up in 1 month Esteban Nova MD The documentation for this note was completed by Shawnee Piper Ma acting as scribe for Esteban Nova MD. December 02, 2017 2:12 PM. Referring Provider: ESTEBAN NOVA [[id number]] Allergies As of Date: 12/02/2017 Noted Allergy Reaction CODEINE 12/10/2005 11 - Vomiting Date Reviewed: 12/02/2017 Reviewed by: Shawnee Piper Ma - Fully Assessed Reason for Visit: F/U 3 Month [443] Cmt: Anxiety, OCD and HTN Primary Visit Diagnosis:Anxiety [F41.9] Other Visit Diagnoses:Neuropathy (HCC) [G62.9] Raynaud's phenomenon without gangrene [I73.00] Obsessive-compulsive disorder, unspecified type [F42.9] Essential hypertension [I10] Obesity, Class III, BMI 40-49.9 (morbid obesity) (HCC) [E66.01] Order(s):Phentermine HCl 37.5 mg tabletTake 1 tablet by mouth once daily for 30 days.Disp: 30 tabletRfl: 0 Prescriptions as of 12/02/2017 Sig: LISINOPRIL 10 MG TABLET Take 1 tablet by mouth once d* HYDROXYCHLOROQUINE 200 MG TAB* Take 200 mg by mouth twice da* ALPRAZOLAM 0.5 MG TABLET Take 1 tablet by mouth three * VENLAFAXINE ER 150 MG CAPSULE* Take 1 capsule by mouth once * CHOLECALCIFEROL (VITAMIN D3) * Take 1 capsule by mouth once * PHENTERMINE 37.5 MG TABLET Take 1 tablet by mouth once d* Problem List As Of Date 12/02/2017 Noted Resolved Anxiety [F41.9] INVALID FOR* Hypothyroidism [E03.9] INVALID FOR* Paresthesia of both feet [R20.2] INVALID FOR* Neuropathy [G62.9] INVALID FOR* Discoloration of skin of toe [L81.9] INVALID FOR* Raynaud's phenomenon [I73.00] INVALID FOR* Pain in both feet [M79.671, M79.672] INVALID FOR* Concern about neurological disease without diag*INVALID FOR* OCD (obsessive compulsive disorder) [F42.9] INVALID FOR* Essential hypertension [I10] INVALID FOR* Obesity, Class II, BMI 35-39.9 [E66.9] INVALID FOR* Prescriptions ordered this encounter Disp Refills Start End PHENTERMINE 37.5 MG TABLET 30 t* 0 12/02/2017 01/01/2018 Class: Print RX Cmt: 40.90 - BMI Route: ORAL Sig: Take 1 tablet by mouth once daily for 30 days. Medications Discontinued During This Encounter methocarbamol (ROBAXIN) 500 mg tablet 90 t* 0 08/05/2017 12/02/2017 Route: ORAL Sig: Take 1 tablet by mouth four times daily. Disc: Course of therapy completed phentermine-topiramate ER (QSYMIA) 1* 30 c* 2 07/21/2017 12/02/2017 Class: Print RX Route: ORAL Sig: Take 30 capsules by mouth once daily for 90 days. Disc: Course of therapy completed lisinopril (ZESTRIL, PRINIVIL) 10 mg* 90 t* 3 04/01/2017 12/02/2017 Route: ORAL Sig: Take 1 tablet by mouth once daily. Disc: Duplicate Entry Disposition: Return in about 4 weeks (around 12/30/2017). Follow-up and Disposition History Recorded Encounter Status:Closed by ESTEBAN NOVA MD on 12/02/17 PROGRESS Observed: 12/02/2017 Status: COMPLETED Source: [place] 2:12 PM [facility] REPOSITORY O ID: [id number] Author: Esteban Nova Service: (none) Author Type: Physician Type: Progress Notes Filed: 12/02/2017 2:46 PM Note Text: Chief Complaint Patient presents with: F/U 3 Month: Anxiety, OCD and HTN HPI Suzanne Garza is a 47 year old female who presents here today for a 3 mo f/u. Anxiety/OCD - Medication does help OCD symptoms but she still continues to check things over and over out of habit. Denies any issues with medication. Currently taking Xanax 0.5 mg 3 tabs po at bedtime and Effexor 150 mg 1 tab po once daily. HTN - Denies checking BP at home lately. Denies any chest pain, sob or dizziness. Currently taking Lisinopril 10 mg 1 tab po once daily. Rheum - Following with Dr. Hayden and now following up every 6 mo. Started Plaquenil 200 mg 1 tab po bid and feels that it does help her joint pain. Followed with [facility] where additional tests were completed. Fatigue - Still has constant fatigue and tired a lot. Feet/Legs - Experiencing more tingling in the last month from the the knees down, mainly in her calves and feet. Feet are becoming more purple, swelling and having a tingling sensation down that back of her legs. Was previously having discomfort when she stood on her feet for prolonged periods of time. Feels that she is not getting answers and she shouldn't being having these symptoms. Sleep - Was discussed with her by [facility] about having a sleep study done. She feels that she would not be able to tolerate the mask. Unsure if she snores or doesn't know if she has witness apnea events. She is tired and fatigued all the time. States that when she gets home Thursday after work, she doesn't want to leave her home til she has to go to work on Thursday due to having no energy. Weight keeps increasing due to being inactive, but not having much of an appetite. Willing to try Adipex. Past medical history, appointments, medications, allergies reviewed. Previous Medical History PAST MEDICAL HISTORY Diagnosis Date - Abnormal mammogram, unspecified right - Anxiety on meds - Mental disorder Previous Surgical History PAST SURGICAL HISTORY Procedure Laterality Date - EGD W/O OR W/BRUSH/WASH 06/29/14 EGD - STEREOTACTIC CORE BIOPSY 04/12/09 right breast - VAGINAL HYSTERECTOMY ovaries not taken Family History FAMILY HISTORY Problem Relation Age of Onset - Thyroid Mother - Hypertension Mother - Diabetes Mother - Ischemic Heart Disease Father age 55 of [place] Patient Allergies ALLERGIES Allergen Reactions - Codeine Vomiting Current Medications Current Outpatient Prescriptions on File Prior to Visit: lisinopril (ZESTRIL, PRINIVIL) 10 mg tablet Take 1 tablet by mouth once daily. hydroxychloroquine (PLAQUENIL) 200 mg tablet Take 200 mg by mouth twice daily. ALPRAZolam (XANAX) 0.5 mg tablet Take 1 tablet by mouth three times daily as needed for Anxiety for up to 90 days. venlafaxine XR (EFFEXOR XR) 150 mg 24 hr capsule Take 1 capsule by mouth once daily. Cholecalciferol, Vitamin D3, 1,000 unit cap Take 1 capsule by mouth once daily. No current facility-administered medications on file prior to visit. 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 General Appearance: Well appearing, alert, in no acute distress, well-hydrated, well nourished., Obese. Neck: Supple, no adenopathy; thyroid symmetric, normal size, no bruits. Lungs: Lungs clear to auscultation. No wheezing, rhonchi, rales. Heart: RRR without murmur, gallop, or rubs. No ectopy. Extremities: Bilateral feet purple in color, not cold to touch. Pulses are good in bilateral feet. Fett were purple when sitting; color improved when she moved to get up on the exam table. Health Maintenance List MAMMOGRAM due on 09/02/2018 DIABETES SCREEN due on 04/01/2020 LIPID SCREEN due on 03/25/2022 DTAP,TDAP,TD(3 - Td) due on 12/18/2025 INFLUENZA Completed Data reviewed External labs ASSESSMENT/PLAN: 1. Anxiety - ICD9: 300.00, ICD10: F41.9 (primary diagnosis) - Stable Continue current medication regimen. 2. Neuropathy (HCC) - ICD9: 355.9, ICD10: G62.9 - follow with Rheum 3. Raynaud's phenomenon without gangrene - ICD9: 443.0, ICD10: I73.00 - Rheum 4. Obsessive-compulsive disorder, unspecified type - ICD9: 300.3, ICD10: F42.9 - Stable 5. Essential hypertension - ICD9: 401.9, ICD10: I10 - good control - Continue current medication(s) - Recommended regular aerobic exercise. - Goal of BP <130/80 6. Obesity, Class III, BMI 40-49.9 (morbid obesity) (HCC) - ICD9: 278.01, ICD10: E66.01 - Start Adipex Follow up in 1 month Esteban Nova MD The documentation for this note was completed by Shawnee Piper Ma acting as scribe for Esteban Nova MD. December 02, 2017 2:12 PM. CBC W/DIFF, AUTOMATED Collected: 11/05/2017 Status: F Source: [place] 12:08 PM [facility] REPOSITORY TYPE CODE TESTS RESULT OUT OF RANGE REFERENCE UNITS LAB L100.1000 4.4-11.0 K/mm3 Normal WBC 4.9 LAB L100.1200 4.2-5.4 M/mm3 Normal RBC 4.58 LAB L100.1300 12.0-15.0 g/dl Normal HGB 13.8 LAB L100.1400 37-47 % Normal HCT 42.9 LAB L100.1500 81-99 fL Normal MCV 93.7 LAB L100.1600 27.0-32.0 pg Normal MCH 30.1 LAB L100.1700 32-36 g/gl Normal MCHC 32.2 LAB L100.1810 11.6-14.6 % Normal RDW CV 13.2 LAB L100.1820 35.1-43.9 fl High RDW SD 45.0 LAB L100.1900 150-450 K/mm3 Normal PLT 300 LAB L100.2000 6.2-12.0 fl Normal MPV 10.4 LAB L100.2100 47-70 % Normal NEUT% 56.7 LAB L100.2200 19-41 % Normal LY% 30.8 LAB L100.2300 0-10 % High MONO% 10.5 LAB L100.2400 0-5 % Normal EO% 1.4 LAB L100.2500 0-1 % Normal BASO% 0.6 LAB L100.2550 0.0-0.9 % Normal IM GRAN % 0.000 Result Comment: IG% - Immature Granulocytes (promyelocytes, myelocytes and metamyelocytes) > 1% indicates that a LEFT SHIFT is Present. LAB L100.2620 2.0-7.7 X10 3/uL Normal Absolute Neut 2.8 LAB L100.2720 0.83-4.51 X10 3/ul Normal Absolute Lymph 1.52 Performed By: #### L100.0100 #### [facility] [address] [place], [address] COMPREHENSIVE METABOLIC Collected: 11/05/2017 Status: F Source: [facility] 12:08 PM [facility] REPOSITORY TYPE CODE TESTS RESULT OUT OF RANGE REFERENCE UNITS LAB L501.0100 74-106 mg/dL Normal GLU 85 Result Comment: Please note revised GLUCOSE reference range effective 2017. LAB L501.1000 7-18 mg/dL Normal BUN 8 LAB L501.1100 0.55-1.02 mg/dL Normal CREAT,SERUM 0.84 Result Comment: The validity of the calculated GFR AND GFRAA in patients over 70 years has not been determined. Clinical correlation is essential. LAB L501.1110 >60 mL/min Normal EST GFR 77 Result Comment: Non- GFR Calc LAB L501.1115 >60 mL/min Normal EST GFR - AA 93 Result Comment: GFR Calc LAB L501.1300 10-20 RATIO Low BUN/CRE 9.5 LAB L501.1500 6.4-8.2 g/dL Normal T PROT 7.8 LAB L501.1800 3.2-5.0 g/dL Normal ALB 3.9 LAB L501.1950 2.2-4.2 g/dL Normal GLOB 3.9 LAB L501.2000 0.9-2.4 RATIO Normal A/G 1.0 LAB L501.2200 8.5-10.1 mg/dL Low CA 8.4 LAB L501.4100 15-37 U/L Normal AST 25 LAB L501.4305 45-117 U/L Normal ALK P 79 LAB L501.4405 13-56 U/L Normal ALT 36 LAB L501.4600 0.20-1.00 mg/dL Normal T BILI 0.20 LAB L501.5300 136-145 mmol/L Normal NA 141 LAB L501.5600 3.5-5.1 mmol/L Normal K 4.2 LAB L501.5900 98-107 mmol/L Normal CL 106 LAB L501.6100 21.0-32.0 mmol/L Normal CO2 28.0 LAB L501.6200 5-15 Normal GAP 7 Performed By: #### L500.4050 #### [facility] [address] [place], [address] ANTI-DNA ANTIBODY Collected: 09/25/2017 Status: F Source: [facility] 9:30 AM SYSTEM REPOSITORY TYPE CODE TESTS RESULT OUT OF REFERENCE UNITS RANGE LAB DNA <1:10 {titer} Anti-DNA <1:10 Antibody Performed By: #### DNA, HANG, ENASO #### The performing lab is in the report. ANTI-NUCLEAR ANTIBODY Collected: 09/25/2017 Status: F Source: [facility] 9:30 AM SYSTEM REPOSITORY TYPE CODE TESTS RESULT OUT OF RANGE REFERENCE UNITS LAB JARED <1:40 {titer} 1:320 Abnormal HANG Titer LAB ANAP HANG Pattern Homogenous Performed By: #### DNA, HANG, ENASO #### The performing lab is in the report. NEHAL 1 Collected: 09/25/2017 Status: F Source: [facility] 9:30 AM SYSTEM REPOSITORY TYPE CODE TESTS RESULT OUT OF RANGE REFERENCE UNITS LAB SSAR 0-40 AU/mL SSA Ab 7 Result Comment: INTERPRETIVE INFORMATION: SSA-52 (Ro52) (NEHAL) Antibody, IgG 29 AU/mL or Less ............. Negative 30 - 40 AU/mL ................ Equivocal 41 AU/mL or Greater .......... Positive SSA-52 (Ro52) and/or SSA-60 (Ro60) antibodies are associated with a diagnosis of Sjogren syndrome, systemic lupus erythematosus (SLE), and systemic sclerosis. SSA-52 antibody overlaps significantly with the major SSc-related antibodies. SSA-52 (Ro52) antibody occurs frequently in patients with inflammatory myopathies, often in the presence of interstitial lung disease. LAB SSBR 0-40 AU/mL SSB Ab 0 Result Comment: INTERPRETIVE INFORMATION: SSB (La) (NEHAL) Ab, IgG 29 AU/mL or Less ............. Negative 30 - 40 AU/mL ................ Equivocal 41 AU/mL or Greater .......... Positive SSB (La) antibody is seen in 50-60% of Sjogren syndrome cases and is specific if it is the only NEHAL antibody present. 15-25% of patients with systemic lupus erythematosus (SLE) and 5-10% of patients with progressive systemic sclerosis (PSS) also have this antibody. LAB SAGR 0-40 AU/mL James Ab 1 Result Comment: INTERPRETIVE INFORMATION: JAMES (NEHAL) Ab, IgG 29 AU/mL or Less ............. Negative 30 - 40 AU/mL ................ Equivocal 41 AU/mL or Greater .......... Positive James antibody is very specific for systemic lupus erythematosus (SLE) but only occurs in 30-35% of SLE cases. The presence of antibodies to James is often associated with renal disease. LAB RPGR 0-40 AU/mL MAP AND CHART MOUNTER (U1) Ab 0 Result Comment: INTERPRETIVE INFORMATION: Ribonucleic Protein (NEHAL)Antibody, IgG 29 AU/mL or Less ............. Negative 30 - 40 AU/mL ................ Equivocal 41 AU/mL or Greater .......... Positive MAP AND CHART MOUNTER antibody is seen in 95-100 percent of mixed connective tissue disease and is considered specific for this syndrome if other antibodies are negative; MAP AND CHART MOUNTER is also present in 20-30 percent of systemic lupus erythematosus and 15-25 percent of progressive systemic sclerosis. MAP AND CHART MOUNTER antigens also contain epitopes that are immunologically identical to free James antigens, therefore, the James antibody response must be considered when interpreting MAP AND CHART MOUNTER results. Performed by [facility], [address] [place] [id number] [email or web address], Keith Mccormick MD - Lab. Director Performed By: #### DNA, HANG, ENASO #### The performing lab is in the report. SCREENING MAMM (CAD), Observed: 09/02/2017 Status: F Source: [place] [facility] 2:56 PM [facility] REPOSITORY [facility] Imaging Services [address] [place] [address] SCREENING MAMM (CAD), BILAT MR#: [id number] Acct: [id number] Name: SUZANNE GARZA Rep #: [id number] : 1970 F 47 From: George Springer MD PCP: Esteban Nova MD Status: REG CLI Study: SCREENING MAMM (CAD), BILAT Date of Exam: 09/02/17 Exam# [id number] Ordering Dr: Rubi Adams MD MAMMOGRAPHY - BILATERAL SCREENING REASON FOR EXAM: Female, 47 years old. Routine annual screening examination. PERTINENT HISTORY: Non-contributory. Remote right stereotactic biopsy. TECHNIQUE: Digital bilateral breast igor (3D mammographic acquisition) in the CC and MLO projections. 2-D mediolateral oblique (MLO) and craniocaudad (CC) views of both breasts were obtained. CAD: Full Field Digital Mammography with Computer Added Detection was performed. COMPARISON: Comparison is made with prior study dated July 16, 2016 and June 27, 2015. FINDINGS: Breast Composition: There are scattered areas of fibroglandular density. There are no dominant masses or suspicious calcifications. A tissue clip marker is seen in the upper lateral portion of the right breast incomplete with her prior biopsy. No other significant abnormalities are identified. There has been no significant change since the prior study. HPBI/SCREENING MAMM (CAD), BILAT IMPRESSION: Stable bilateral screening mammogram. Yearly follow-up mammogram recommended. (A) ASSESSMENT CATEGORY: BIRADS Category 1: Negative. A letter regarding these results will be sent to the patient by the facility within 30 days. Approximately 10% of breast cancers are not detected by mammography. A normal mammogram should not delay biopsy of a clinically suspicious abnormality. [id number] Electronically Signed: George Springer MD at 8:16 EST Tel [phone], Service support , CC: Rubi Adams MD; Esteban Nova MD Test Conductor: Signed PROGRESS Observed: 09/02/2017 Status: COMPLETED Source: [place] 1:57 PM [facility] REPOSITORY O ID: [id number] Author: Esteban Nova Service: (none) Author Type: Physician Type: Progress Notes Filed: 09/03/2017 5:08 PM Note Text: Chief Complaint Patient presents with: Medication Follow-up HPI Suzanne Garza is a 47 year old female who presents here today for medication follow up. Anxiety/OCD: is about the same, no worse. Is taking Effexor XR 150 mg daily and Xanax 0.5 mg three times daily as needed. HTN: does not check BP at home. Pt has BP monitor at home, stated she will start checking it. Taking Lisinopril 10 mg daily. BP was high at Dr. Hayden's office, was advised that she needed to monitor that per Dr. Hayden. Back pain improved. Has a numb sensation localized to the outer right thigh. Denies any pain. Stated that the numbness started after her back flared up. Feels like she has sore on the inner right nostril. Admits to some blood when blowing nose. Has been using Vicks salve. Saw Dr. Hayden, District Manager In [employer] who did labs and dx her with Mixed Connective Tissue Disorder and started her on Plaquenil 200 mg twice daily. Pt is going to see [facility] with Dr. Srinivasan Wilson next month just for a second opinion. Copy of blood work from Dr. Hayden's office made for pt records. Will be following with Dr. Hayden every 3 months with blood work. Past medical history, appointments, medications, allergies reviewed. Previous Medical History PAST MEDICAL HISTORY Diagnosis Date - Abnormal mammogram, unspecified right - Anxiety on meds - Mental disorder Previous Surgical History PAST SURGICAL HISTORY Procedure Laterality Date - EGD W/O OR W/BRUSH/WASH 06/29/14 EGD - STEREOTACTIC CORE BIOPSY 04/12/09 right breast - VAGINAL HYSTERECTOMY ovaries not taken Family History FAMILY HISTORY Problem Relation Age of Onset - Thyroid Mother - Hypertension Mother - Diabetes Mother - Ischemic Heart Disease Father age 55 of [place] Patient Allergies ALLERGIES Allergen Reactions - Codeine Vomiting Current Medications Current Outpatient Prescriptions on File Prior to Visit: venlafaxine XR (EFFEXOR XR) 150 mg 24 hr capsule Take 1 capsule by mouth once daily. ALPRAZolam (XANAX) 0.5 mg tablet Take 1 tablet by mouth three times daily as needed for Anxiety for up to 59 days. Cholecalciferol, Vitamin D3, 1,000 unit cap Take 1 capsule by mouth once daily. lisinopril (ZESTRIL, PRINIVIL) 10 mg tablet Take 1 tablet by mouth once daily. methocarbamol (ROBAXIN) 500 mg tablet Take 1 tablet by mouth four times daily. phentermine-topiramate ER (QSYMIA) 15-92 mg 24 Hr Capsule Take 30 capsules by mouth once daily for 90 days. No current facility-administered medications on file prior to visit. 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 Nose/Sinuses: Nares normal, septum midline, mucosa normal, no drainage or sinus tenderness, slightly irritated red spot to inner right nostril. Lungs: Lungs clear to auscultation. No wheezing, rhonchi, rales. Heart: RRR without murmur, gallop, or rubs. No ectopy. Health Maintenance List MAMMOGRAM due on 07/16/2017-scheduled today DIABETES SCREEN due on 04/01/2020 LIPID SCREEN due on 03/25/2022 TETANUS due on 12/18/2025 INFLUENZA Completed Data reviewed Labs reviewed from Dr. Hayden's office ASSESSMENT/PLAN: 1. Anxiety - ICD9: 300.00, ICD10: F41.9 (primary diagnosis) Continue current medications. 2. Obsessive-compulsive disorder, unspecified type - ICD9: 300.3, ICD10: F42.9 Continue current medications. 3. Essential hypertension - ICD9: 401.9, ICD10: I10 - suboptimal control - Continue current medication(s) - Recommended regular aerobic exercise. - Recommend home blood pressure monitoring, to bring results in on next visit - Goal of BP <140/90 4. Connective tissue disorder (HCC) - ICD9: 710.9, ICD10: M35.9 Continue with plaquenil 200 mg BID Keep appt with [facility] for 2nd opinion 5. Sore in nose - ICD9: 478.19, ICD10: J34.89 Recommend nasal saline Follow up in 3 months. Esteban Nova MD The documentation for this note was completed by Joleen Mtz Ma acting as scribe for Esteban Nova MD. September 02, 2017 2:11 PM. ALLERGIES ALLERGIES DATE TYPE / CODE NAME / CODE REACTION SEVERITY SOURCE 12/10/2005 DRUG CODEINE Vomiting [facility] INGREDI/[address] [place] [address](SNOMED Repository CT) ENCOUNTERS ENCOUNTERS ADMIT/DISCHARGE ACCOUNT NUMBER ADMITTING ENCOUNTER LOCATION SOURCE CLASS 08/11/2018/08/13/[id number] Repository 08/11/2018 [id number] [facility] ding:MTLAB Repository 05/26/2018/05/27/[id number] Repository 05/19/2018/05/19/[id number] Repository 05/12/2018 [id number] [facility] ding:MTLAB Repository 03/09/2018 [id number] [facility] ding:MTLAB Repository 03/03/2018/03/04/[id number] Repository 02/03/2018/02/06/[id number] Repository 12/30/2017/01/01/[id number] Repository 12/02/2017/12/05/[id number] Repository 11/05/2017 [id number] [facility] ding:MTLAB Repository 09/25/2017 [id number] [facility] Repository 09/02/2017 [id number] [facility] ding:BI Repository 09/02/2017/09/02/19 [id number] Ambulatory [address] Repository PAYERS PAYERS ENCOUNTER GUARANTOR PAYER SUBSCRIBER SOURCE 08/11/2018 SUZANNE L Primary SUZANNE L [place] [id number] Insurance:MEDICAL SNADERDOB: [facility] [id number] Number: Repository [id number]: 330 [id number] [phone] (HP) Date:5516-15-70JF [address] [address]MJ: 08/11/2018 Secondary NOT GIVENUNK [place] Insurance:SELF PAY [facility] Number: Effective Repository Date:2018-08-11 05/12/2018 SUZANNE L Primary SUZANNE L [place] [id number] Insurance:MEDICAL SNADERDOB: [facility] [id number] Number: Repository [address]Tqi: 330 [id number] [phone] (HP) Date:1557-05-37FE [address] [address]UZ: 05/12/2018 Secondary NOT GIVENUNK [place] Insurance:SELF PAY [facility] Number: Effective Repository Date:2018-05-12 03/09/2018 SUZANNE L Primary SUZANNE L [place] [id number] Insurance:MEDICAL SNADERDOB: [facility] [id number] Number: Repository [address]Wey: 330 [id number] [phone] (HP) Date:7232-53-32GN [address] [address]UQ: 03/09/2018 Secondary NOT GIVENUNK [place] Insurance:SELF PAY [facility] Number: Effective Repository Date:2018-03-09 11/05/2017 Suzanne Primary Suzanne [place] [id number] Insurance:MEDICAL SnaderDOB: [facility] [id number], [place] Number: Repository [address]Upa: 330 [id number] [phone] (HP) Date:8998-27-97LA [address] [address]QU: 11/05/2017 Secondary NOT GIVENUNK [place] Insurance:SELF PAY [facility] Number: Effective Repository Date:2017-11-05 09/25/2017 Suzanne L Primary Suzanne L [facility] SnaderDOB: Insurance:Medical SnaderDOB: System [id number] [facility] [id number] [address]ository [address] Number: Effective [place], [place] Date: [address]Owy: () 09/02/2017 Suzanne Primary Suzanne [place] [id number] Insurance:MEDICAL SnaderDOB: [facility] [id number] Number: Repository [id number]: [phone] [id number] [phone] () Date:1862-33-45CD [address] [place] [address]WA: 09/02/2017 Secondary NOT GIVENUNK [place] Insurance:SELF PAY [facility] Number: Effective Repository Date:2017-08-03
== END ==
PROVIDERS: Family Provider Family Medicine; PCP Family Medicine; Referring Provider Internal Medicine Rheumatology; Visit Provider Internal Medicine Rheumatology
DX: M06.4 Inflammatory polyarthropathy (principal); M35.1 Other overlap syndromes; M35.8 Other specified systemic involvement of connective tissue; M79.7 Fibromyalgia; K90.0 Celiac disease; F32.89 Other specified depressive episodes; F41.8 Other specified anxiety disorders
CPT/HCPCS: 36415; 80053; 85025

== ENCOUNTER → 2018-09-13 15:49 | Outpatient (CLI) | payer OTHER, SELFPAY ==
[2018-09-13 19:12] LABS: Follicle Stimulating Hormone 5.4 mIU/mL; T4 Free Direct 0.72 ng/dL (0.76-1.46); Thyroid Stim Hormone (TSH) 5.01 uIU/mL (0.358-3.74)
== END ==
PROVIDERS: Visit Provider Obstetrics & Gynecology
DX: N95.1 Menopausal and female climacteric states (principal)
CPT/HCPCS: 36415; 82306; 83001; 84439; 84443

== ENCOUNTER → 2018-09-29 14:16 | Outpatient (CLI) | payer OTHER, SELFPAY ==
--- NOTE | 2018-09-29 14:18 | BI_ITS ---
MAMMOGRAPHY - BILATERAL SCREENING REASON FOR EXAM: Female, 48 years old. Routine annual screening examination. PERTINENT HISTORY: Non-contributory. Remote right stereotactic breast biopsy. TECHNIQUE: Digital bilateral breast igor (3D mammographic acquisition) in the CC and MLO projections. 2-D mediolateral oblique (MLO) and craniocaudad (CC) views of both breasts were obtained. CAD: Full Field Digital Mammography with Computer Added Detection was performed. COMPARISON: Comparison is made with prior study dated September 02, 2017 and July 16, 2016. FINDINGS: Breast Composition: There are scattered areas of fibroglandular density. There are no dominant masses or suspicious calcifications. 2 adjacent tissue clip markers are seen in the upper lateral portion of the right breast. No other significant abnormalities are identified. There has been no significant change since the prior study. BI/SCREENING MAMM (CAD), BILAT IMPRESSION: Stable bilateral screening mammogram. Yearly follow-up mammogram recommended. (A) ASSESSMENT CATEGORY: BIRADS Category 2: Benign. A letter regarding these results will be sent to the patient by the facility within 30 days. Approximately 10% of breast cancers are not detected by mammography. A normal mammogram should not delay biopsy of a clinically suspicious abnormality. [id number] Electronically Signed: George Springer, at 15:23 EDT , Service support ,
== END ==
PROVIDERS: Family Provider Family Medicine; PCP Family Medicine; Visit Provider Obstetrics & Gynecology
DX: Z12.31 Encounter for screening mammogram for malignant neoplasm of breast (principal)
CPT/HCPCS: 77063; 77067

== ENCOUNTER → 2018-11-11 | Outpatient (CLI) | payer OTHER, SELFPAY ==
[2018-11-11 12:20] LABS: Absolute Lymphocyte Count 1.42 X10^3/ul (0.83-4.51); Absolute Neutrophil Count 3.4 X10^3/uL (2.0-7.7); Basophil# 0.02 X10^3/uL; Basophil% 0.4 % (0-1); Eosinophil# 0.13 X10^3/uL; Eosinophils% 2.3 % (0-5); Hematocrit 37.9 % (37-47); Hemoglobin 12.6 g/dl (12.0-15.0); Lymphocyte # 1.42 X10^3/ul (4.0); Lymphocyte % 25.6 % (19-41); Mean Corp Hgb Conc 33.2 g/gl (32-36); Mean Corpuscular Hgb 31.2 pg (27.0-32.0); Mean Corpuscular Volume 93.8 fL (81-99); Mean Platelet Vol. 10.7 fl (6.2-12.0); Monocyte# 0.57 X10^3/uL; Monocyte% 10.3 % (0-10); Neutrophil # 3.38 X10^3/uL (2.7-7.7); Neutrophil % 60.9 % (47-70); Platelet Count 263 K/mm3 (150-450); RBC Distribution Width CV 13.7 % (11.6-14.6); RBC Distribution Width SD 45.3 fl (35.1-43.9); Red Blood Count 4.04 M/mm3 (4.2-5.4); White Blood Count 5.6 K/mm3 (4.4-11.0)
[2018-11-11 12:21] LABS: POSITIVE COUNT NO; POSITIVE DIFFERENTIAL NO; POSITIVE MORPHOLOGY NO
[2018-11-11 12:46] LABS: Thyroid Stim Hormone (TSH) 3.18 uIU/mL (0.358-3.74)
[2018-11-11 12:57] LABS: AST(SGOT) 24 U/L (15-37); Alanine Aminotransfer ALT/SGPT 34 U/L (13-56); Albumin, Serum 3.7 g/dL (3.2-5.0); Alkaline Phosphatase 78 U/L (45-117); Anion Gap 7 (5-15); BUN 14 mg/dL (7-18); BUN/Creat Ratio 15.3 RATIO (10-20); Calcium,Total 8.6 mg/dL (8.5-10.1); Chloride 107 mmol/L (98-107); Creatinine, Serum 0.92 mg/dL (0.55-1.02); EST Glomerular Filtration Rate 69 mL/min (>60); Est Glom Filt Rate - Afr Amer 84 mL/min (>60); Globulin 3.8 g/dL (2.2-4.2); Glucose 91 mg/dL (74-106); Potassium 3.9 mmol/L (3.5-5.1); Protein, Total 7.5 g/dL (6.4-8.2); Sodium Level 137 mmol/L (136-145)
[2018-11-17 15:06] LABS: Follicle Stimulating Hormone 17.5 mIU/mL
== END | disposition home or self-care (01) ==
LOC: MTLAB 10:50
PROVIDERS: Internal Medicine Rheumatology; Family Provider Family Medicine; PCP Family Medicine; Referring Provider Obstetrics & Gynecology; Visit Provider Obstetrics & Gynecology
DX: E03.9 Hypothyroidism, unspecified (principal)
CPT/HCPCS: 36415; 80053; 83001; 84439; 84443; 85025

== ENCOUNTER → 2018-12-14 | Outpatient (CLI) | payer OTHER, SELFPAY | END | disposition home or self-care (01) | LOC: SL 20:09 | PROVIDERS: Family Provider Family Medicine; PCP Family Medicine; Referring Provider Family Medicine; Visit Provider Family Medicine | DX: G47.10 Hypersomnia, unspecified (principal); R06.83 Snoring; R63.5 Abnormal weight gain | CPT/HCPCS: 95810 ==

== ENCOUNTER → 2019-01-25 | Outpatient (CLI) | payer OTHER, SELFPAY | END | disposition home or self-care (01) | LOC: SL 20:22 | PROVIDERS: Family Provider Family Medicine; PCP Family Medicine; Referring Provider Family Medicine; Visit Provider Family Medicine | DX: G47.30 Sleep apnea, unspecified (principal) | CPT/HCPCS: 95810; 95811 ==

== ENCOUNTER → 2019-02-02 | Outpatient (CLI) | payer OTHER, SELFPAY ==
[2019-02-02 18:00] LABS: Absolute Lymphocyte Count 1.75 X10^3/uL (0.83-4.51); Absolute Neutrophil Count 3.8 X10^3/uL (2.0-7.7); Basophil# 0.03 X10^3/uL; Basophil% 0.5 % (0-1); Eosinophil# 0.13 X10^3/uL; Eosinophils% 2.1 % (0-5); Hematocrit 39.8 % (37-47); Hemoglobin 13.3 g/dL (12.0-15.0); Lymphocyte # 1.75 X10^3/ul (4.0); Lymphocyte % 27.6 % (19-41); Mean Corp Hgb Conc 33.4 g/dL (32-36); Mean Corpuscular Hgb 31.7 pg (27.0-32.0); Monocyte# 0.61 X10^3/uL; Monocyte% 9.6 % (0-10); NRBC Flagged by Analyzer 0 % (0-5); Neutrophil % 59.9 % (47-70); Platelet Count 296 K/mm3 (150-450); RBC Distribution Width CV 13.2 % (11.6-14.6); RBC Distribution Width SD 46.6 fl (35.1-43.9); Red Blood Count 4.19 M/mm3 (4.2-5.4); White Blood Count 6.3 K/mm3 (4.4-11.0)
[2019-02-02 18:08] LABS: ALB/GLOB Ratio 1.1 RATIO (0.9-2.4); AST(SGOT) 22 U/L (15-37); Alanine Aminotransfer ALT/SGPT 40 U/L (13-56); Alkaline Phosphatase 74 U/L (45-117); Anion Gap 6 (5-15); BUN 11 mg/dL (7-18); BUN/Creat Ratio 12.3 RATIO (10-20); Calcium,Total 9.1 mg/dL (8.5-10.1); Chloride 104 mmol/L (98-107); EST Glomerular Filtration Rate 71 mL/min (>60); Est Glom Filt Rate - Afr Amer 86 mL/min (>60); Globulin 3.8 g/dL (2.2-4.2); Glucose 85 mg/dL (74-106); Potassium 3.6 mmol/L (3.5-5.1); Protein, Total 7.8 g/dL (6.4-8.2); Sodium Level 134 mmol/L (136-145)
== END | disposition home or self-care (01) ==
LOC: MTLAB 15:21
PROVIDERS: Family Provider Family Medicine; PCP Family Medicine; Referring Provider Internal Medicine Rheumatology; Visit Provider Internal Medicine Rheumatology
DX: M06.4 Inflammatory polyarthropathy (principal); M35.1 Other overlap syndromes; M35.8 Other specified systemic involvement of connective tissue; M79.7 Fibromyalgia; K90.0 Celiac disease; F32.89 Other specified depressive episodes; F41.8 Other specified anxiety disorders
CPT/HCPCS: 36415; 80053; 85025

== ENCOUNTER → 2019-02-16 | Outpatient (CLI) | payer OTHER, SELFPAY ==
--- NOTE | 2019-02-16 15:24 | RAD_ITS ---
STUDY: X-RAY CHEST REASON FOR EXAM: Female, 48 years old. Starting new medication. No chest complaints. TECHNIQUE: PA and lateral views of the chest. COMPARISON: None. FINDINGS: The lungs are clear and moderately expanded. There is no demonstrated pleural abnormality. Normal size heart. Normal mediastinum and phuong. Normal visualized pulmonary arteries. Normal visualized aortic arch and descending thoracic aorta. There are early degenerative changes of the visualized mid thoracic spine. Normal visualized ribs, clavicles, and shoulders. There is no demonstrated abnormality of the visualized soft tissue structures of the upper abdomen. RAD/Chest PA and Lateral IMPRESSION: No acute cardiopulmonary disease. Electronically Signed: Apolinar Rodas MD at 15:52 EDT , Service support ,
== END | disposition home or self-care (01) ==
LOC: MTLAB 15:23
PROVIDERS: Family Provider Family Medicine; PCP Family Medicine; Referring Provider Internal Medicine Rheumatology; Visit Provider Internal Medicine Rheumatology
DX: M06.4 Inflammatory polyarthropathy (principal); M35.1 Other overlap syndromes; M35.8 Other specified systemic involvement of connective tissue; M79.7 Fibromyalgia; K90.0 Celiac disease; F32.89 Other specified depressive episodes; F41.8 Other specified anxiety disorders
CPT/HCPCS: 36415; 71046; 86480

== ENCOUNTER 2019-04-20 19:01 | Emergency (ER) | payer OTHER, SELFPAY ==
[2019-04-20 19:02] VITALS: BP 135/90; PULSE 90; RESP 16; TEMP 37; O2SAT 99; BMI 40.9
--- NOTE | 2019-04-20 19:50 | RAD_ITS ---
STUDY: X-RAY - RIGHT KNEE REASON FOR EXAM: Female, 48 years old. Pain TECHNIQUE: 4 view(s) of the knee. COMPARISON: None. FINDINGS: There is no evidence of fracture or dislocation. There are no significant degenerative changes. There are no radiodense foreign bodies. RAD/Knee 4 or More Views IMPRESSION: No fracture or dislocation. Electronically Signed: Kaleb Aleman, at 20:10 EDT Tel , Service support ,
[2019-04-20] MEDS: Ketorolac 60 MG/2 ML Vial IM (20:05)
--- NOTE | 2019-04-20 20:49 | ED.DCSUM_ITS ---
- ER Visit Summary Date of Service: 04/20/19 Chief Complaint: Right knee pain History of Present Illness: The patient is a 48 F with posterior right knee pain. The patient said the pain started suddenly today. She felt a pop. She has pain with weightbearing. She never had this before. No other symptoms like swelling or numbness. Physical Examination: Afebrile and vital signs unremarkable. Inspection normal. She has posterior knee palpation diffusely. No laxity. Neurovascularly intact distally. Good extension. Good strength and sensation. Test Results: X-rays negative Emergency Department Course and Treatment: I was concerned for ligamentous injury. X-rays were negative. Patient has no deformities or obvious laxity. Nothing to suggest DVT, vascular, or neurologic compromise. Patient was treated with Toradol. Ice. Walker. Nonweightbearing. Work note given. Follow-up with primary care for recheck. Treatment Plan: As above Disposition: Discharge Impression: 1. Right knee pain This note was generated with [employer] dictation software. It may contain incorrect words, spelling, and punctuation that were not noted in review of the chart prior to signing ED Disposition - Plan for ED Patient: Referrals: Walker Hinton MD [Primary Care Provider] -
--- NOTE | 2019-04-20 20:52 | ED.DEP ---
ED Disposition - Plan for ED Patient: Instructions: Knee Sprain Prescriptions: Ketorolac [Toradol] 10 mg PO Q6H 5 Days #20 tab Prescription Printed Referrals: Walker Hinton MD [Primary Care Provider] -
[2019-04-20 21:12] VITALS: RESP 16
--- NOTE | 2019-04-20 21:13 | ED.RN ---
REVIEWED D/C INSTRUCTIONS, FOLLOW UP CARE, PRESCRIPTION, AND S/S THAT WOULD WARRANT A RETURN TO THE ED WITH PT. PT VERBALIZED AN UNDERSTANDING AND DENIES FURTHER QUESTIONS FOR THIS RN. PT SKIN P/W/D, RESP EVEN AND UNLABORED, PT A&O X 3, NO DISTRESS NOTED. PT AMBULATED OUT OF ED USING WALKER.
== END 2019-04-20 21:14 | disposition home or self-care (01) ==
LOC: ED 19:21
PROVIDERS: Emergency Provider Emergency Medicine; Family Provider Family Medicine; PCP Family Medicine
DX: M25.561 Pain in right knee (principal); M06.4 Inflammatory polyarthropathy; Z79.899 Other long term (current) drug therapy
CPT/HCPCS: 73564; 96372; 99282

== ENCOUNTER → 2019-05-02 10:46 | Outpatient (CLI) | payer OTHER, SELFPAY ==
[2019-04-22 08:07] VITALS: BMI 40.9
[2019-05-02 12:39] LABS: Absolute Lymphocyte Count 1.18 X10^3/uL (0.83-4.51); Absolute Neutrophil Count 2.1 X10^3/uL (2.0-7.7); Basophil# 0.03 X10^3/uL; Basophil% 0.8 % (0-1); Eosinophil# 0.07 X10^3/uL; Eosinophils% 1.9 % (0-5); Hematocrit 40.6 % (37-47); Hemoglobin 13.4 g/dL (12.0-15.0); Lymphocyte # 1.18 X10^3/ul (4.0); Lymphocyte % 31.4 % (19-41); Mean Corpuscular Hgb 31.5 pg (27.0-32.0); Mean Corpuscular Volume 95.5 fL (81-99); Mean Platelet Vol. 11.4 fl (6.2-12.0); Monocyte% 10.6 % (0-10); NRBC Flagged by Analyzer 0 % (0-5); Neutrophil # 2.08 X10^3/uL (2.7-7.7); Neutrophil % 55.3 % (47-70); Platelet Count 279 K/mm3 (150-450); RBC Distribution Width CV 14.2 % (11.6-14.6); RBC Distribution Width SD 49.7 fl (35.1-43.9); Red Blood Count 4.25 M/mm3 (4.2-5.4); White Blood Count 3.8 K/mm3 (4.4-11.0)
[2019-05-02 13:00] LABS: AST(SGOT) 18 U/L (15-37); Alanine Aminotransfer ALT/SGPT 25 U/L (13-56); Albumin, Serum 3.8 g/dL (3.2-5.0); Alkaline Phosphatase 74 U/L (45-117); Anion Gap 8 (5-15); BUN 17 mg/dL (7-18); BUN/Creat Ratio 17.8 RATIO (10-20); Calcium,Total 8.9 mg/dL (8.5-10.1); Chloride 109 mmol/L (98-107); Creatinine, Serum 0.95 mg/dL (0.55-1.02); EST Glomerular Filtration Rate 66 mL/min (>60); Est Glom Filt Rate - Afr Amer 80 mL/min (>60); Globulin 3.9 g/dL (2.2-4.2); Glucose 77 mg/dL (74-106); Protein, Total 7.7 g/dL (6.4-8.2); Sodium Level 141 mmol/L (136-145)
== END ==
PROVIDERS: Family Provider Family Medicine; PCP Family Medicine; Referring Provider Internal Medicine Rheumatology; Visit Provider Internal Medicine Rheumatology
DX: M06.4 Inflammatory polyarthropathy (principal); Z79.899 Other long term (current) drug therapy; M35.1 Other overlap syndromes; M35.8 Other specified systemic involvement of connective tissue; M79.7 Fibromyalgia; K90.0 Celiac disease; F32.89 Other specified depressive episodes; F41.8 Other specified anxiety disorders
CPT/HCPCS: 36415; 80053; 85025

== ENCOUNTER → 2019-05-05 17:53 | Outpatient (CLI) | payer OTHER, SELFPAY ==
[2019-04-22 08:07] VITALS: BMI 40.9
--- NOTE | 2019-05-05 17:56 | MRI_ITS ---
HISTORY: pt c/o anterior knee pain, no specific injury EXAMINATION: MR Knee W/O Contrast TECHNIQUE: Multiplanar and multisequence MR images of the right knee. IV Contrast dosage and agent: None. COMPARISON: X-rays of the right knee from April 20, 2019. X series. 218 images. FINDINGS: BONE: Abnormal increased T2-weighted signal consistent with marrow edema is present on the anterior aspect of the medial portion of the tibial plateau. There is trace subcortical degenerative cystic disease deep to the tibial spines. JOINT: A knee effusion is present. The preponderance of fluid is present within the suprapatellar bursa MUSCLES: Abnormal increased T2-weighted signal is present within the origin of both the medial and the lateral heads of the gastrocnemius at the posterior aspect of the femur. MENISCI: Abnormal increased T2-weighted signal with thickening is present within the posterior lateral aspect of the origin of the posterior horn of the medial meniscus consistent with intrasubstance tearing and myxoid degeneration. This abnormal increased T2-weighted signal continues throughout the posterior horn of the medial meniscus. Much of the medial meniscus is extruded medially out of the joint. CRUCIATE LIGAMENTS: Anterior and posterior cruciate ligaments are intact. COLLATERAL LIGAMENTS: The lateral collateral ligament is minimally thickened at its origin lateral to the lateral femoral condyle. Some fluid tracks deep to the medial collateral ligament along its insertion on the proximal medial portion of the tibia. No discontinuity to the collateral ligaments is deciphered CARTILAGE: Chondromalacia is present on the lateral facet of the patella and on the lateral facet of the trochlear groove. There is some lateral tilt to the patella with this arthritis. There is mild thinning to the anterior aspect of the cartilage on the medial femoral condyle. OTHER SOFT TISSUES: Some edema is present within the subcutaneous fat ventral to the patellar ligament and the patella. Some subcutaneous superficial veins are slightly prominent on the lateral aspect of the knee suggesting possible central venous reflux disease. A tiny synovial reflection does not have significant amount of fluid within the region of popliteal cyst. IMPRESSION: Mild degenerative change about the knee with a knee effusion. Small amount of marrow edema on the medial tibial plateau anteriorly. Posterior horn medial meniscus horizontal tear with meniscal intrasubstance myxoid degeneration, especially at the root of the posterior horn of the medial meniscus laterally. Chondromalacia on the lateral facet of the patella and on the lateral facet of the trochlear groove at 2018 Reported and signed by: Donald Adair MD Electronically Signed: Donald Adair MD at 20:17 EDT Tel , Service support , MRI/Lower Ext Joint Only (Routine)
== END ==
PROVIDERS: Family Provider Family Medicine; PCP Family Medicine; Referring Provider Orthopaedic Surgery; Visit Provider Orthopaedic Surgery
DX: M25.561 Pain in right knee (principal)
CPT/HCPCS: 73721

== ENCOUNTER 2019-05-27 10:18 | Day surgery (SDC) | payer OTHER, SELFPAY ==
[2019-05-09 10:03] VITALS: BMI 40.9
--- NOTE | 2019-05-23 14:01 | PCM.HP.BLA ---
History and Physical Date of Admission: 05/24/19 Intake Vital Signs 05/09/19 Body Mass Index (BMI) 40.9 Intake Visit Reasons: RIGHT KNEE Is patient in pain?: Yes Pain scale (1-10): 5 Allergies codeine Adverse Reaction (Verified 04/20/19 19:02) Nausea [facility] Medical History (Updated 04/22/19 @ 09:20 by Priyanka Paz) MCTD (mixed connective tissue disease) (Acute) HTN (hypertension) (Chronic) Social History (Updated 05/09/19 @ 11:45 by Carlitos Lewis DO) Smoking Status: Never smoker HPI RIGHT KNEE: Details: Parts of this documentation were recorded by a scribe, this documentation accurately reflects the service provided and the decisions made by me, Carlitos Lewis DO 05/09/19 0754. SUZANNE COVARRUBIAS is a 49 year old F here today for MRI f/u on the right knee. She continues to have pain and aching, increased with stairs and at the end of the day. She has anterior knee pain. Denies numbness, tingling or other associated symptoms. She denies any recent instability or clicking. She was instructed to d/c the night splints by Dr Durham. ROS Musc Reports as per HPI, Reports abnormal walking, Reports joint pain, Reports stiffness Skin/Breast Reports system reviewed and no additional complaints, except as docu Neuro Yes as per HPI, Yes abnormal walking Ortho Exam Right Knee Skin/Wound: No erythema, No ecchymosis, Yes swelling Knee ROM: Yes ROM-Extension -20 to 0 Examination: Yes Med jt line tenderness, Yes Pain with flexion, Yes Ralph's Test, Yes TTP Pes Anserine Stability: NML: Anterior Drawer, NML: Posterior Drawer, NML: Valgus 30, NML: Varus 0 Patella Translation: 1 Apprehension with Lateral Translation: No Left Knee Patella Translation: 1 Supplemental Info 05/05/2019 MRI right knee: Horizontal tear posterior horn medial meniscus with intrasubstance mucoid degeneration chondromalacia patella mild degenerative changes throughout the knee with knee effusion Assessment & Plan Problems 1. Acute medial meniscus tear of right knee, subsequent encounter S81.939N 2. Primary osteoarthritis of right knee M17.11 Plan Explained that she has PF OA and a tear of the posterior medial meniscus horizontally. Her treatment options are knee arthroscopy for debridement but there is pain that remains from the OA or conservative treatment is a steroid injection in the pes d/t ttp or oral anti inflammatories. Explained that after surgery she can have swelling for up to 6wks and could have an injection 6wks post op. Reviewed the pre-operative plans with the patient. Risks and benefits of the procedure were fully explained, including but not limited to infection, neurovascular injury, continued pain, arthritis, stiffness, need for further surgery, re-injury, DVT, PE, general risks of anesthesia, and loss of limb or life. The patient understands all the risks and does wish to proceed with written consent. Follow up post op or sooner if pain, swelling, numbness or associated symptoms, or concerns develop. All questions answered. Patient in agreement of plan. Coding Level of Care Code Off vis,est,level 3 Diagnoses Acute medial meniscus tear of right knee, subsequent encounter S83.241D ??Encounter type: subsequent encounter Primary osteoarthritis of right knee M17.11 ??Osteoarthritis type: primary I have re-examined the patient. There are no clinical changes since date of exam
[2019-05-27] VITALS (8 sets, daily range): BP systolic 132–152; BP diastolic 77–94; PULSE 82–93; RESP 14–16; TEMP 36.4–37.2; O2SAT 92–100; BMI 40.1
[2019-05-27] MEDS: Bupivacaine 0.5% PF 10 ML VIAL (11:59)
[2019-05-27] MEDS: Cefazolin 2 GM in 0.9% Normal Saline 100 ML IV (12:19)
[2019-05-27] MEDS: Bupiv/Epi 0.25% 30 ML Vial (12:40)
[2019-05-27] MEDS: MethylPREDNISolone Acetate 80 MG/ML Vial (12:59)
--- NOTE | 2019-05-27 13:18 | OP.PCM_ITS ---
Report of Operation Date of Procedure: 05/27/19 Description of Surgical Findings:: Preop diagnosis: Right knee posterior horn medial meniscus tear DJD Postoperative diagnosis: Right knee complex tear posterior horn medial meniscus grade 3 cartilage wear medial femoral condyle medial tibial plateau lateral patellar facet multiple cartilaginous loose bodies Procedure: Arthroscopic right knee partial medial meniscectomy chondroplasty removal of loose bodies Anesthesia: General Estimated blood loss: 5 mL Tourniquet time: 22 minutes 300 mmHg Complications: none Indication for procedure: This is a 49-year-old female patient who has had ongoing right knee pain mechanical symptoms did have MRI evidence of medial meniscus tear they wish to proceed with elective arthroscopic surgery to alleviate her symptoms Risk benefits and alternatives of the procedure were reviewed including risk of bleeding infection nerve artery tissue damage need for further surgery continued pain and expected postoperative course. Procedure: The patient was met in the preoperative holding area. The operative extremity was identified by both patient and physician and family and marked. Patient was brought back to the operating room on a wheeled cart and transferred to the operating table in the supine position. Anesthesia was started. A well- padded tourniquet was placed on the operative extremity. A lower extremity leg patel was secured to the operative extremity. The contralateral extremity was well-padded and the end of the bed was flexed to 90 degrees. The patient was prepped and draped in the usual sterile fashion. A timeout was called to ensure the proper patient, procedure, and extremity were being contemplated. 0.5% Marcaine with epinephrine was injected into the planned incisional areas under the skin only. An Esmarch was used to exsanguinate the extremity and the tourniquet was inflated. An 11 blade scalpel was used to make a stab incision in the anterior lateral portal. The arthroscope was inserted into the intercondylar notch and inflow and outflow tubes were attached. Arthroscopic visualization began. The medial compartment was entered. An 18-gauge spinal needle was used to establish the placement for anterior medial portal. An 11 blade scalpel was used to make a stab incision. Blunt probe was inserted followed by a meniscal probe. There is noted to be posterior horn medial meniscus tear and grade 3 cartilage wear medial compartment with loose cartilage flaps and loose bodies with use of arthroscopic biting instruments ArthroCare wand and a arthroscopic shaver partial medial meniscectomy chondroplasty as well as removal of loose bodies was performed the ACL was found to be intact. The lateral compartment was entered was free of cartilage or meniscal pathology . The medial and lateral gutters were inspected and were free of loose bodies. The patellofemoral joint was inspected grade 3 cartilage wear the lateral patellar facet however no loose cartilage fragments. There was good patellar tracking. The knee was thoroughly irrigated and drained. An intra-articular injection with 5 cc 0.5% Marcaine plain 4 mg of morphine and 40 mg of Depo- Medrol was injected intra-articularly. The arthroscope was removed the portals were closed with 3-0 nylon arthroscopic stitches. Followed by Xeroform 4 x 4's ABDs web roll and an Pranay wrap. The tourniquet was let down and the drapes were removed. All counts were correct. The patient was brought back to the PACU in stable condition.
--- NOTE | 2019-05-27 13:18 | PCM.HP.BLA ---
History and Physical Date of Admission: 05/27/19 Intake Vital Signs 05/09/19 Body Mass Index (BMI) 40.9 Intake Visit Reasons: RIGHT KNEE Is patient in pain?: Yes Pain scale (1-10): 5 Allergies codeine Adverse Reaction (Verified 04/20/19 19:02) Nausea [facility] Medical History (Updated 04/22/19 @ 09:20 by Priyanka Paz) MCTD (mixed connective tissue disease) (Acute) HTN (hypertension) (Chronic) Social History (Updated 05/09/19 @ 11:45 by Carlitos Lewis DO) Smoking Status: Never smoker HPI RIGHT KNEE: Details: Parts of this documentation were recorded by a scribe, this documentation accurately reflects the service provided and the decisions made by me, Carlitos Lewis DO 05/09/19 0754. SUZANNE COVARRUBIAS is a 49 year old F here today for MRI f/u on the right knee. She continues to have pain and aching, increased with stairs and at the end of the day. She has anterior knee pain. Denies numbness, tingling or other associated symptoms. She denies any recent instability or clicking. She was instructed to d/c the night splints by Dr Durham. ROS Musc Reports as per HPI, Reports abnormal walking, Reports joint pain, Reports stiffness Skin/Breast Reports system reviewed and no additional complaints, except as docu Neuro Yes as per HPI, Yes abnormal walking Ortho Exam Right Knee Skin/Wound: No erythema, No ecchymosis, Yes swelling Knee ROM: Yes ROM-Extension -20 to 0 Examination: Yes Med jt line tenderness, Yes Pain with flexion, Yes Ralph's Test, Yes TTP Pes Anserine Stability: NML: Anterior Drawer, NML: Posterior Drawer, NML: Valgus 30, NML: Varus 0 Patella Translation: 1 Apprehension with Lateral Translation: No Left Knee Patella Translation: 1 Supplemental Info 05/05/2019 MRI right knee: Horizontal tear posterior horn medial meniscus with intrasubstance mucoid degeneration chondromalacia patella mild degenerative changes throughout the knee with knee effusion Assessment & Plan Problems 1. Acute medial meniscus tear of right knee, subsequent encounter S8.939D 2. Primary osteoarthritis of right knee M17.11 Plan Explained that she has PF OA and a tear of the posterior medial meniscus horizontally. Her treatment options are knee arthroscopy for debridement but there is pain that remains from the OA or conservative treatment is a steroid injection in the pes d/t ttp or oral anti inflammatories. Explained that after surgery she can have swelling for up to 6wks and could have an injection 6wks post op. Reviewed the pre-operative plans with the patient. Risks and benefits of the procedure were fully explained, including but not limited to infection, neurovascular injury, continued pain, arthritis, stiffness, need for further surgery, re-injury, DVT, PE, general risks of anesthesia, and loss of limb or life. The patient understands all the risks and does wish to proceed with written consent. Follow up post op or sooner if pain, swelling, numbness or associated symptoms, or concerns develop. All questions answered. Patient in agreement of plan. Coding Level of Care Code Off vis,est,level 3 Diagnoses Acute medial meniscus tear of right knee, subsequent encounter S83.241D ??Encounter type: subsequent encounter Primary osteoarthritis of right knee M17.11 ??Osteoarthritis type: primary I have re-examined the patient. There are no clinical changes since date of exam
--- NOTE | 2019-05-27 13:22 | PCM.DC.ORTHO ---
Discharge Diet: No Restrictions Call your doctor if you observe: Fever of 101 or Higher, Shortness of breath, Chest pain Additional Instructions: Ice and elevate next 72 hours .keep dressing on clean and dry for 48 hours then may remove begin showering daily but do not submerge in tub or pool. After shower may apply Band-Aids . Encourage knee range of motion weightbearing as tolerated, use crutches until confident in knee then may discontinue. No strenuous activity. When not ambulating keep iced and elevated next 72 hours. Due to immunocompromise status with home medications please take antibiotics that were prescribed. Allergies/Adverse Reactions: Allergies codeine Adverse Reaction (Verified 05/27/19 11:16) Nausea Medications to take at Discharge Cyclobenzaprine HCl 10 mg PO PRN PRN 04/20/19 Duloxetine HCl 60 mg PO DAILY 04/20/19 Etanercept [Enbrel] 50 mg SQ Q7D 04/20/19 Folic Acid 1 mg PO BID 04/20/19 Hydroxychloroquine [Plaquenil] 200 mg PO DAILYCM 04/20/19 Leucovorin Calcium 15 mg PO QWEEK 04/20/19 Levothyroxine [Synthroid] 50 mcg PO DAILY 04/20/19 Lisinopril [Prinivil] 10 mg PO DAILY 04/20/19 Methotrexate [Xatmep] 8 tab PO QWEEK 04/20/19 ALPRAZolam [Xanax] 0.5 mg PO TID PRN PRN 05/17/19 Cephalexin [Keflex] 500 mg PO Q12 #14 cap 05/27/19 Hydrocodone Bitart/Apap 5-325 [Plano 5MG-325MG] 1 - 2 tab PO Q4H PRN PRN 5 Days #50 tab 05/27/19 The following prescriptions were given: Cephalexin [Keflex] 500 mg PO Q12 #14 cap Transmission Status: Received by [facility] Hydrocodone Bitart/Apap 5-325 [Plano 5MG-325MG] 1 - 2 tab PO Q4H PRN PRN 5 Days #50 tab PRN Reason: Pain Transmission Status: Received by [facility] Primary Care Physician: Walker Hinton MD [Primary Care Provider] - Test Results: Test results from this visit will be discussed in further detail at your follow-up appointment, if applicable. Please Follow Up With: Carlitos Lewis DO - 2 weeks
[2019-05-27] MEDS: Lactated Ringers 1,000 ML 100 ML IV ×2 (13:29→13:52)
== END 2019-05-27 15:33 | disposition home or self-care (01) ==
LOC: SDC 10:19 → AC 10:49
PROVIDERS: Family Provider Family Medicine; PCP Family Medicine; Referring Provider Orthopaedic Surgery; Visit Provider Orthopaedic Surgery
PROC: (CPT 29870; principal; 2019-05-27 11:45)
DX: S83.231A Complex tear of medial meniscus, current injury, right knee, initial encounter (principal); M17.11 Unilateral primary osteoarthritis, right knee; X58.XXXA Exposure to other specified factors, initial encounter; Y93.9 Activity, unspecified; Y92.9 Unspecified place or not applicable; I10 Essential (primary) hypertension; G47.30 Sleep apnea, unspecified; F41.9 Anxiety disorder, unspecified; F32.9 Major depressive disorder, single episode, unspecified; E06.9 Thyroiditis, unspecified; M35.1 Other overlap syndromes; Z78.0 Asymptomatic menopausal state; Z79.899 Other long term (current) drug therapy
CPT/HCPCS: 29881; J7120; J2405

== ENCOUNTER → 2019-07-27 14:44 | Outpatient (CLI) | payer OTHER, SELFPAY ==
[2019-07-08 07:56] VITALS: BMI 40.1
[2019-07-27 15:38] LABS: Absolute Lymphocyte Count 2.11 X10^3/uL (0.83-4.51); Absolute Neutrophil Count 4.1 X10^3/uL (2.0-7.7); Basophil# 0.04 X10^3/uL; Basophil% 0.6 % (0-1); Eosinophil# 0.09 X10^3/uL; Eosinophils% 1.2 % (0-5); Hematocrit 39.4 % (37-47); Hemoglobin 13.3 g/dL (12.0-15.0); Lymphocyte # 2.11 X10^3/ul (4.0); Lymphocyte % 29.2 % (19-41); Mean Corp Hgb Conc 33.8 g/dL (32-36); Mean Corpuscular Hgb 31.8 pg (27.0-32.0); Mean Corpuscular Volume 94.3 fL (81-99); Mean Platelet Vol. 10.6 fl (6.2-12.0); Monocyte# 0.89 X10^3/uL; Monocyte% 12.3 % (0-10); NRBC Flagged by Analyzer 0 % (0-5); Neutrophil # 4.07 X10^3/uL (2.7-7.7); Neutrophil % 56.3 % (47-70); Platelet Count 259 K/mm3 (150-450); RBC Distribution Width CV 14.2 % (11.6-14.6); RBC Distribution Width SD 48.8 fl (35.1-43.9); Red Blood Count 4.18 M/mm3 (4.2-5.4); White Blood Count 7.2 K/mm3 (4.4-11.0)
[2019-07-27 16:03] LABS: Albumin, Serum 3.8 g/dL (3.2-5.0); BUN 13 mg/dL (7-18); BUN/Creat Ratio 15.9 RATIO (10-20); Creatinine, Serum 0.82 mg/dL (0.55-1.02); EST Glomerular Filtration Rate 79 mL/min (>60); Est Glom Filt Rate - Afr Amer 95 mL/min (>60); Glucose 70 mg/dL (74-106); Protein, Total 7.4 g/dL (6.4-8.2)
[2019-07-27 16:04] LABS: ALB/GLOB Ratio 1.1 RATIO (0.9-2.4); AST(SGOT) 15 U/L (15-37); Alanine Aminotransfer ALT/SGPT 32 U/L (13-56); Alkaline Phosphatase 70 U/L (45-117); Anion Gap 5 (5-15); Calcium,Total 8.6 mg/dL (8.5-10.1); Chloride 105 mmol/L (98-107); Globulin 3.6 g/dL (2.2-4.2); Potassium 3.7 mmol/L (3.5-5.1); Sodium Level 139 mmol/L (136-145)
== END ==
PROVIDERS: Family Provider Family Medicine; PCP Family Medicine; Referring Provider Internal Medicine Rheumatology; Visit Provider Internal Medicine Rheumatology
DX: M06.4 Inflammatory polyarthropathy (principal); M35.1 Other overlap syndromes; M35.8 Other specified systemic involvement of connective tissue; M79.7 Fibromyalgia; Z79.899 Other long term (current) drug therapy
CPT/HCPCS: 36415; 80053; 85025

== ENCOUNTER → 2019-09-30 10:46 | Outpatient (CLI) | payer OTHER, SELFPAY ==
[2019-09-30 08:00] VITALS: BMI 40.1
--- NOTE | 2019-09-30 10:59 | RAD_ITS ---
STUDY: X-RAY - LEFT KNEE REASON FOR EXAM: Female, 49 years old. KNEE PAIN, NO TRAUMA TECHNIQUE: 4 view(s) of the knee. COMPARISON: None. FINDINGS: Normal visualized distal femur. Normal visualized proximal tibia and fibula. Normal proximal tibiofibular articulation. Normal medial femorotibial compartment. Normal lateral femorotibial compartment. Normal patellofemoral articulation. There is no demonstrated joint effusion. The soft tissue structures are unremarkable. RAD/Knee 4 or More Views IMPRESSION: Normal x-ray examination of the knee. Electronically Signed: Nelson Rankin MD ([place]) at 17:02 EDT , Service support ,
== END ==
PROVIDERS: PCP Family Medicine; Referring Provider Orthopaedic Surgery; Visit Provider Orthopaedic Surgery
DX: M25.562 Pain in left knee (principal)
CPT/HCPCS: 73564

== ENCOUNTER → 2019-10-28 09:33 | Outpatient (CLI) | payer OTHER, SELFPAY ==
[2019-09-30 08:00] VITALS: BMI 40.1
--- NOTE | 2019-10-28 09:35 | MRI_ITS ---
STUDY: MRI LEFT KNEE REASON FOR EXAM: Female, 49 years old. Left knee pain. Overcompensating secondary to recent surgery on contralateral knee. TECHNIQUE: Standardized fat and water weighted pulse sequences were obtained in all 3 orthogonal planes. COMPARISON: X-ray dated September 30, 2019 and contralateral knee MRI dated May 05, 2019. FINDINGS: Shallow chondral fissure at the patellar apex and lateral facet (axial image 10 series 5). Grade 3 cartilage loss at the patellofemoral articulation. Grade 4 cartilage loss at the medial compartment. Lateral compartment articular cartilage preserved. No acute fracture. No acute dislocation. No acute bone destruction. Well-corticated cyst at the medial femoral condyle posteriorly (coronal image 13 series 9 and axial image 13 series 5). Lateral meniscus intact. Medial meniscus degeneration with posterior root ligament tear (coronal image 12 series 9 and axial image 17 series 5). Mild medial meniscus free edge and undersurface fraying. Moderate volume joint effusion. No popliteal cyst. Moderate soft tissue swelling. Normal medial collateral ligamentous complex (MCL). Normal distal semimembranosus, gracilis and semitendinosus tendons. Normal proximal tibiofibular articulation. Normal lateral collateral (fibular) ligament. Normal popliteus tendon. Normal biceps femoris tendon. Normal anterior cruciate ligament (ACL). Normal posterior cruciate ligament (PCL). Normal medial and lateral patellar retinaculum. Normal quadriceps tendon. Normal patellar tendon. Normal Hoffa''s fat pad. MRI/Lower Ext Joint Only (Routine) IMPRESSION: Medial meniscus posterior root ligament tear with additional degeneration/fraying Medial compartment severe cartilage loss Patellofemoral articulation moderate cartilage loss with shallow chondral fissuring Moderate volume joint effusion and moderate soft tissue swelling Electronically Signed: Tramaine Wilkins DO at 10:48 EDT Tel , Service support ,
== END ==
PROVIDERS: PCP Family Medicine; Referring Provider Orthopaedic Surgery; Visit Provider Orthopaedic Surgery
DX: S83.242A Other tear of medial meniscus, current injury, left knee, initial encounter (principal); X58.XXXA Exposure to other specified factors, initial encounter; Y93.9 Activity, unspecified; Y92.9 Unspecified place or not applicable; Y99.9 Unspecified external cause status
CPT/HCPCS: 73721

== ENCOUNTER → 2019-12-05 14:20 | Outpatient (CLI) | payer OTHER, SELFPAY ==
[2019-11-02 10:24] VITALS: BMI 40.1
--- NOTE | 2019-12-05 14:21 | RAD_ITS ---
STUDY: X-RAY - LEFT KNEE REASON FOR EXAM: Female, 49 years old. AP non stress and AP stress views only, per doc, pre op TECHNIQUE: 2 view(s) of the knee. COMPARISON: None. FINDINGS: Small eccentric lucent lesion with rim sclerosis in the medial femoral condyle likely benign fibrous cortical defect or nonossifying fibroma. Normal visualized proximal tibia and fibula. Normal proximal tibiofibular articulation. Normal medial femorotibial compartment. Normal lateral femorotibial compartment. Normal patellofemoral articulation. The soft tissue structures are unremarkable. No change since previous study RAD/Knee 1 or 2 Views IMPRESSION: No acute fracture or other significant bony pathology Electronically Signed: Malik Wood MD at 16:19 EDT , Service support ,
== END ==
PROVIDERS: PCP Family Medicine; Referring Provider Physician Assistant; Visit Provider Physician Assistant
DX: M25.562 Pain in left knee (principal)
CPT/HCPCS: 73560

== ENCOUNTER → 2019-12-14 14:24 | Outpatient (CLI) | payer OTHER, SELFPAY ==
[2019-12-05 15:48] VITALS: BMI 40.1
--- NOTE | 2019-12-14 14:25 | CT_ITS ---
STUDY: CT LEFT LOWER EXTREMITY WITHOUT CONTRAST REASON FOR EXAM: Knee pain, presurgical planning. TECHNIQUE: Transaxial CT imaging of the knee, hip and ankle was performed. Coronal and sagittal images were reformatted. Individualized dose optimization techniques were used for this CT. COMPARISON: Radiographs 12/05/2019. FINDINGS: Knee: There is a subchondral cyst in the posterior aspect of the nonweightbearing medial femoral condyle (sagittal reconstruction 26) measuring 1.1 cm in AP dimension. There is joint space narrowing of the medial proximal tibial alignment (coronal reconstruction 44). Normal lateral femoral condyle and lateral tibial plateau. There is preservation of the articular joint space of the lateral knee compartment. Normal patellofemoral articulation. Normal proximal tibiofibular articulation. There is a small to moderate-sized joint effusion. The quadriceps tendon is grossly normal. The patellar tendon is grossly normal. Normal Hoffa''s fat pad. There is anterior soft tissue swelling. Hip: Normal left acetabulum and proximal left femur. There is preservation of the left hip joint space. Ankle: Normal distal tibia, distal fibula, talus, calcaneus and navicular. Normal tibiotalar, posterior subtalar, talonavicular and calcaneocuboid articulations. CT/Extremity Lower without Contra IMPRESSION: Arthrosis of the medial femorotibial compartment. Knee joint effusion. Electronically Signed: Wilton Joe MD at 11:09 EDT Tel , Service support ,
== END ==
PROVIDERS: PCP Family Medicine; Referring Provider Orthopaedic Surgery; Visit Provider Orthopaedic Surgery
DX: M17.12 Unilateral primary osteoarthritis, left knee (principal)
CPT/HCPCS: 73700

== ENCOUNTER 2019-12-22 05:33 | Day surgery (SDC) | payer OTHER, SELFPAY ==
[2019-12-05 15:48] VITALS: BMI 40.1
--- NOTE | 2019-12-14 14:23 | EKG12_ITS ---
Test Reason : PREOP Blood Pressure : / mmHG Vent. Rate : 096 BPM Atrial Rate : 096 BPM P-R Int : 150 ms QRS Dur : 070 ms QT Int : 352 ms P-R-T Axes : 046 -01 007 degrees QTc Int : 444 ms Normal sinus rhythm Normal ECG Confirmed by LUCIA TUCKER ([id number]), editor book EMERSON CLEMENTS ([id number]) on 12/19/2019 10:57:08 AM Referred By: Carlitos Lewis Confirmed By:LUCIA TUCKER
[2019-12-14 14:39] LABS: Absolute Lymphocyte Count 1.53 X10^3/uL (0.83-4.51); Basophil# 0.03 X10^3/uL; Basophil% 0.5 % (0-1); Eosinophil# 0.08 X10^3/uL; Eosinophils% 1.3 % (0-5); Hemoglobin 13.9 g/dL (12.0-15.0); Lymphocyte # 1.53 X10^3/ul (4.0); Lymphocyte % 24.6 % (19-41); Mean Corp Hgb Conc 33.1 g/dL (32-36); Mean Corpuscular Hgb 31.3 pg (27.0-32.0); Mean Corpuscular Volume 94.6 fL (81-99); Mean Platelet Vol. 10.4 fl (6.2-12.0); Monocyte# 0.53 X10^3/uL; Monocyte% 8.5 % (0-10); NRBC Flagged by Analyzer 0 % (0-5); Neutrophil # 4.04 X10^3/uL (2.7-7.7); Neutrophil % 64.8 % (47-70); Platelet Count 340 K/mm3 (150-450); RBC Distribution Width CV 13.1 % (11.6-14.6); RBC Distribution Width SD 45.3 fl (35.1-43.9); Red Blood Count 4.44 M/mm3 (4.2-5.4); White Blood Count 6.2 K/mm3 (4.4-11.0)
[2019-12-14 14:43] LABS: Prothrombin Time (Protime)PT. 12.9 SECONDS (11.7-14.9)
[2019-12-14 14:45] LABS: Partial Thromboplast Time 26.2 Seconds (24.1-36.2)
[2019-12-14 15:09] LABS: Anion Gap 6 (5-15); BUN 7 mg/dL (7-18); Calcium,Total 9.5 mg/dL (8.5-10.1); Chloride 106 mmol/L (98-107); Creatinine, Serum 0.88 mg/dL (0.55-1.02); EST Glomerular Filtration Rate 72 mL/min (>60); Est Glom Filt Rate - Afr Amer 87 mL/min (>60); Glucose 85 mg/dL (74-106); Potassium 3.5 mmol/L (3.5-5.1); Sodium Level 139 mmol/L (136-145)
[2019-12-14 15:24] LABS: Thyroid Stim Hormone (TSH) 2.39 uIU/mL (0.358-3.74)
[2019-12-22] VITALS (7 sets, daily range): BP systolic 114–142; BP diastolic 67–92; PULSE 88–101; RESP 16; TEMP 36.1–37.1; O2SAT 97–100; BMI 44.2
[2019-12-22] MEDS: Acetaminophen 500 MG Tablet 1000 MG PO (06:02)
[2019-12-22] MEDS: Lactated Ringers 1,000 ML 100 ML IV (06:02)
[2019-12-22] MEDS: Celecoxib 200 MG Capsule 400 MG PO (06:03)
[2019-12-22] MEDS: Gabapentin 600 MG Tablet PO (06:03)
[2019-12-22] MEDS: Scopolamine 1mg/72hr Patch 1 PATCH TRANSDERM. (06:04)
[2019-12-22 06:34] LABS: Magnesium 1.7 mg/dL (1.6-2.6)
[2019-12-22] MEDS: Lactated Ringers 1,000 ML 125 ML IV (07:00)
--- NOTE | 2019-12-22 07:36 | HP.PCM_ITS ---
History and Physical Date of Admission: 12/22/19 Intake Vital Signs 12/05/19 BMI 40.1 Intake Visit Reasons: left knee Is patient in pain?: Yes Allergies codeine Adverse Reaction (Verified 05/27/19 11:16) Nausea Medications Cyclobenzaprine HCl 10 mg PO PRN PRN 04/20/19 [History Confirmed 12/05/19] Duloxetine HCl 60 mg PO DAILY 04/20/19 [History Confirmed 12/05/19] Folic Acid 1 mg PO BID 04/20/19 [History Confirmed 12/05/19] Levothyroxine [Synthroid] 50 mcg PO DAILY 04/20/19 [History Confirmed 12/05/19] Lisinopril [Prinivil] 10 mg PO DAILY 04/20/19 [History Confirmed 12/05/19] ALPRAZolam [Xanax] 0.5 mg PO TID PRN PRN 05/17/19 [History Confirmed 12/05/19] PFS Medical History (Updated 05/23/19 @ 14:[address] Carlitos Lewis DO) MCTD (mixed connective tissue disease) (Acute) HTN (hypertension) (Chronic) Social History (Updated 12/05/19 @ 16:30 by DARRIN Resendez) Smoking Status: Never smoker HPI left knee: Details: Parts of this documentation were recorded by a scribe, this documentation accurately reflects the service provided and the decisions made by me, DARRIN Resendez 12/05/19 0114. SUZANNE COVARRUBIAS is a 49 year old F here today for left knee pain. she continues to have difficulty with ambulation and stairs. She is also here today for a stress view of the left knee for preop planning. She denies any recent injury, swelling or numbness or tingling. She here today for Iovera treatment, it was denied by her insurance and patient elects to proceed with self pay procedure. ROS Musc Reports as per HPI, Reports joint pain, Reports muscle weakness, Reports stiffness Skin/Breast Reports as per HPI Neuro Yes as per HPI Ortho Exam Left Knee Skin/Wound: No ecchymosis, No erythema, No swelling Contralateral Normal: Yes Homans Sign: No Examination: Yes med jt line tenderness, Yes Lat jt line tenderness, Yes Pain with flexion KNEE: No acute abnormalities on inspection of the knee. There is no localized or generalized swelling and no erythema, ecchymosis/bruising, warmth, or other skin changes. She has evident reproducible tenderness on palpation of the medial joint line as well as some of the lateral joint line. She has no calf t enderness today. Office Procedures Iovera Details:: Preoperative diagnosis : left knee pain Postoperative diagnosis: Same Procedure: Cryotherapy with Iovera device to anterior femoral cutaneous nerve and 2 branches of the infrapatellar saphenous nerve III nerves in total Description of procedure: Patient was brought back to the procedure room the operative extremity was identified by both patient and physician. The PIP flexion crease was measured to the midpoint of the patella and this distance was divided in 3 resulting in 10 cm location proximal to the midpoint of the patella. This line was extended medial and lateral to the extent of the edges of the patella. This was our treatment line for the anterior femoral cutaneous nerve. A second treatment line was made 5 cm medial to the inferior pole of the patella and 5 cm distally. The leg was prepped with alcohol and Betadine. Lidocaine with epi was used along the treatment lines. Using the Iovera device treatment lines were treated with 1 minute cycles. Reproduction of paresthesias was monitored in the area of nerve distribution. Once all 3 nerves were treated across the 2 treatment lines patient was cleaned and a light dressing with 4 x 4 and Pranay wrap was applied. Patient tolerated the procedure without complication. SELF PAY Assessment & Plan Problems 1. Acute pain of left knee M25.562 Plan Patient presents to the office today for an Iovera treatment performed preoperatively for left knee arthroplasty (partial versus total). The procedure was previously discussed however we also discussed this procedure again today walking through the steps of the procedure and its function. Her questions were answered consent was signed today. At that point the entire lower extremity was cleansed with alcohol soaked gauze. Our landmarks were marked locating the borders of the patella and eventually the mid portion of the patella. Measurement taken from the mid pole of the patella to the inguinal crease. This was then divided by 3 and a wilfredo was made. The lateral and medial margin of the patella were then extended up to that same wilfredo in a horizontal treatment line was then made. From there the inferior pole of the patella was palpated and then 5 cm was measured medially. At that point measurement was taken 5 cm distally and the vertical treatment line was made here. The proximal treatment line was then cleansed again with Betadine prep stick and an alcohol pad. The line was then superficially anesthetized. Once anesthetized alcohol pad was used to press over the wheels dispersing anesthetic. Treatment was then performed just proximal to the treatment line. Patient tolerated procedure well. This was then repeated on the more distal vertical treatment line. Patient also tolerated this without any problems. Patient is to monitor notify of any erythema, warmth, tenderness, swelling, or any signs of infection. She can also notify us with any other questions or concerns. This note was generated with [employer] dictation software. It may contain incorrect words, spelling, and punctuation that were not noted in checking the note before signing. 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 There are no clinical changes since date of exam Procedure Criteria Procedure Type: Elective Risk to Patient if Procedure Delayed: Presence of severe symptoms causing an inability to perform ADL's COVID Risk Discussion: The surgeon/proceduralist and patient have discussed in detail the risk of exposure to and/or potential harm posed by the COVID-19 virus with having a surgery/procedure at this time versus the risk of delaying the cowan rgery/procedure. It is not possible to know either the risk of delaying the surgery or procedure or chance of getting an infection with perfect accuracy, but a joint decision was made between the patient and the surgeon/proceduralist to proceed at this time with the scheduled surgery/procedure as indicated on the consent form.
[2019-12-22] MEDS: Cefazolin 2 GM in 0.9% Normal Saline 100 ML IV (07:40)
[2019-12-22 07:46] LABS: Bedside Glucose 117 mg/dL (70-110)
[2019-12-22] MEDS: dexAMETHasone 10 MG/ML Vial IV (08:05)
[2019-12-22] MEDS: Epinephrine (1 mg/ml) 1 MG/ML VIAL (09:13)
[2019-12-22] MEDS: Bupivacaine 0.5% PF 10 ML VIAL (09:14)
[2019-12-22] MEDS: Betamethasone/Betamethasone 30 MG/5 ML Vial (09:14)
[2019-12-22] MEDS: 0.9% Normal Saline (Pres. free 10 ML Vial (09:14)
--- NOTE | 2019-12-22 09:47 | RAD_ITS ---
STUDY: X-RAY - LEFT KNEE REASON FOR EXAM: Female, 49 years old. POST OP TOTAL KNEE REPLACEMENT TECHNIQUE: AP and lateral view(s) of the knee. COMPARISON: Comparison is made with prior study dated December 05, 2019. FINDINGS: Normal visualized distal femur. Normal visualized proximal tibia and fibula. Normal proximal tibiofibular articulation. The patient is status post total knee replacement. There is good alignment. Postoperative soft tissue changes. RAD/Knee 1 or 2 Views IMPRESSION: Total knee replacement. There is good alignment. Postoperative soft tissue changes. Electronically Signed: George Springer, at 10:28 EDT , Service support ,
--- NOTE | 2019-12-22 09:54 | PCM.DC.ORTHO ---
Discharge Diet: No Restrictions Keep extremity elevated above heart level: Operative Extremity Call your doctor if you observe: Shortness of breath, Chest pain Additional Instructions: Ice and elevate one week while not ambulating. Ambulation is encouraged. Weightbearing as tolerated. Use assistive devise for stability. Encourage FULL knee extension and flexion 1 time EVERY time you get up and down and MULTIPLE times per day. No showering 72 hours after surgery. Begin showering postop day #3. Remove the dressing prior to shower and gently wash with warm water and antibacterial soap then pat dry and place abdominal pad (or plain gauze) and CATHERINE hose over top. This is to be done daily. Do not submerge for 3 weeks. If not showering daily after the initial 72 hours then you must clean incision and change dressing daily. Do not allow animals near the incision area. Keep clean. Follow anticoagulation recommendations as prescribed. Start physical therapy. If you are not currently scheduled for physical therapy or you are unsure of appointment time please call office IAN to arrange. Call Dr. Lewis with any concerns. Allergies/Adverse Reactions: Allergies codeine Adverse Reaction (Verified 12/22/19 05:47) Nausea Medications to take at Discharge Cyclobenzaprine HCl 10 mg PO PRN PRN 04/20/19 Duloxetine HCl 60 mg PO DAILY 04/20/19 Etanercept [Enbrel] 50 mg SQ Q7D 04/20/19 Levothyroxine [Synthroid] 50 mcg PO DAILY 04/20/19 Lisinopril [Prinivil] 10 mg PO DAILY 04/20/19 ALPRAZolam [Xanax] 0.5 mg PO TID PRN PRN 05/17/19 Acetaminophen [Tylenol Extra Strength] 1,000 mg PO Q6H #100 tab 12/22/19 Apixaban [Eliquis] 2.5 mg PO BID #30 tab 12/22/19 Cephalexin [Keflex] 1,000 mg PO Q8 #4 cap 12/22/19 Ondansetron HCl [Zofran] 4 mg PO Q6H PRN PRN 5 Days #20 tab 12/22/19 Oxycodone [Oxyir] 5 mg PO Q4H PRN PRN #60 tablet 12/22/19 The following prescriptions were given: Apixaban [Eliquis] 2.5 mg PO BID #30 tab Transmission Status: Pending to [id number] Cephalexin [Keflex] 1,000 mg PO Q8 #4 cap Transmission Status: Pending to [id number] Oxycodone [Oxyir] 5 mg PO Q4H PRN PRN #60 tablet PRN Reason: Pain Score 6-10/10 Transmission Status: Received by [id number] Acetaminophen [Tylenol Extra Strength] 1,000 mg PO Q6H #100 tab Transmission Status: Pending to [id number] Ondansetron HCl [Zofran] 4 mg PO Q6H PRN PRN 5 Days #20 tab PRN Reason: Nausea Transmission Status: Pending to [id number] Orders to be completed after discharge: CORONAVIRUS 19, SENAIT Time Frame: 12/21/19, Facility: [facility], Location: Laboratory Primary Care Physician: Walker Hinton MD [Primary Care Provider] - Test Results: Test results from this visit will be discussed in further detail at your follow-up appointment, if applicable. Please Follow Up With: Carlitos Lewis DO - 2 weeks
--- NOTE | 2019-12-22 09:55 | OP.PCM_ITS ---
Report of Operation Date of Procedure: 12/22/19 Description of Surgical Findings:: Preoperative diagnosis: Left knee DJD Postoperative diagnosis: Same Procedure: Left total knee arthroplasty CT guided Robotic Assisted Implant: Brennan triathlon press fit femoral component size 2, press-fit tibial baseplate size 3, press fit asymmetric patella size 35, polyethylene X3 size 9 CS Anesthesia: Spinal with adductor canal block Tourniquet time: 9 minutes at 300 mmHg Complications: None Condition: Stable to PACU Estimated blood loss: 150 cc Indication for procedure: This is a 49-year-old female with long standing degenerative joint disease of the knee who has failed conservative treatment and wished to proceed with elective total knee arthroplasty. Risk benefits and alternatives were reviewed including; risk of bleeding, infection, nerve artery and tissue damage, continued pain, postoperative stiffness, venous thromboembolism, need for postoperative rehabilitation, mechanical feel to the knee, and expected postoperative course. The operative CT and templating was performed with component sizing Procedure: The patient was met in the preoperative holding area. The operative extremity was identified by both patient and physician and was marked. Patient was met by anesthesia. An adductor canal block was placed by anesthesia postoperatively the patient was brought back to the operating room on a wheeled cart and transferred to the operating table in the supine position. Anesthesia was started. A well-padded tourniquet was placed on the operative extremity. The patient was prepped and draped in the usual sterile fashion. A timeout was called to ensure the proper patient procedure and extremity were being contemplated. An Esmarch was used to exsanguinate the extremity. The tourniquet was inflated. A 10 blade scalpel was used to make a midline incision down through the skin and subcutaneous tissue. Skin retractors placed. Bovie was used to perform meticulous hemostasis. full-thickness flaps were elevated medial and lateral along the joint capsule. A deep blade scalpel was used to perform a medial parapatellar arthrotomy. The knee was brought to full extension. A Bovie was used to release the soft tissues off the most proximal aspect of the medial tibial plateau a three-quarter inch curved osteotome was also used for this process. The infrapatellar fat pad was excised. The fat pad was excised partially anterior lateral portion the anterior medial was elevated from the femur. At this point our intra-articular femoral array was placed of a 45 degree angle proximal and posterior to the medial epicondyle. Our tibial array was placed greater than 1 hands breath below the incision at a 20 degree angle stab incisions were used for this case were attached and checked with the robotic software. Tourniquet was let down. At this point registration pickens were taken throughout the knee as well as checkpoints placed in the femur and tibia once the knee was registered then tensioned the medial and lateral ligaments in extension and 90 degrees of flexion. We then used these numbers to adjust our components within parameters to balance the knee in both flexion and extension once this was done on our monitor we then proceeded with using the robotic arm to make our tibial plateau cut and anterior posterior and chamfer cuts on the femur we then trialed and achieved the desired plan with a well- balanced knee. Lug holes were drilled in the femur the tibia preparation was completed with a fin punch and the patella was prepared by first using a caliper to ensure sufficient bone stock and a patellar reamer to remove the desired amount of bone locals were drilled for an asymmetric poly-. We then brought the knee through range of motion with excellent patellar tracking. We thoroughly irrigated the knee with a trial components were removed a posterior capsular injection with her standard cocktail was performed the aqua Everett was also used to aid in hemostasis. Betadine rinse was allowed to sit and washed out components were press-fit into place. Aricept rinse was then used followed by several more rate liters of irrigation after it was allowed to sit. Joint capsule was closed with #1 Ethibond [id number] followed by Vicryl in the subcutaneous tissues staple in the skin arrays and checkpoints were removed prior to closure all counts were correct stab incisions were closed with a stable standard dressing in the form of Mepilex for the main incision Xeroform 4 x 4 and Tegaderm over pin site holes. Thigh-high CATHERINE hose applied over top of dressing. Patient tolerated the procedure well she was directed to PACU in stable condition no intraoperative complications
[2019-12-22] MEDS: Cefazolin 1 GM/50 ML BAG IV (10:44)
[2019-12-22] MEDS: Ketorolac 30 MG/ML Syringe IV (11:44)
[2019-12-22 13:55] LABS: Bedside Glucose 146 mg/dL (70-110)
== END 2019-12-22 14:43 | disposition home or self-care (01) ==
LOC: SDC 05:33 → AC 05:33
PROVIDERS: Anesthesiology; PCP Family Medicine; Referring Provider Orthopaedic Surgery; Visit Provider Orthopaedic Surgery
PROC: 0SRD0JZ Replacement of Left Knee Joint with Synthetic Substitute, Open Approach (ICD-10-PCS; CPT 27447; principal; 2019-12-22 07:00)
DX: M17.12 Unilateral primary osteoarthritis, left knee (principal); I10 Essential (primary) hypertension; K90.0 Celiac disease; M35.1 Other overlap syndromes; G47.30 Sleep apnea, unspecified; F32.9 Major depressive disorder, single episode, unspecified; F41.9 Anxiety disorder, unspecified; Z78.0 Asymptomatic menopausal state; Z88.5 Allergy status to narcotic agent; Z11.59 Encounter for screening for other viral diseases
CPT/HCPCS: 27447; 64447; 76942; 36415; 73560; 80048; 82962; 83735; 84443; 85025; 85610; 85730; 86850; 86900; 86901; 87081; 87635; 93005; 97161; 97166; C1776; G2023; J7120; J0702; J2405; J3490; U0003

== ENCOUNTER → 2020-02-01 13:04 | Outpatient (CLI) | payer OTHER, SELFPAY ==
[2020-02-01 12:58] VITALS: BMI 44.2
--- NOTE | 2020-02-01 13:04 | RAD_ITS ---
STUDY: X-RAY - LEFT KNEE REASON FOR EXAM: Female, 49 years old. POST OP X 6 WEEKS TECHNIQUE: 4 view(s) of the knee. COMPARISON: 12/22/2019 FINDINGS: Normal visualized distal femur. Normal visualized proximal tibia and fibula. Normal proximal tibiofibular articulation. Status post total knee arthroplasty. The prosthesis appears located. No ostial lysis to suggest loosening.. The soft tissue structures are unremarkable. RAD/Knee 4 or More Views IMPRESSION: Normal x-ray examination of the knee after total knee arthroplasty. Electronically Signed: Remiigo Henriquez MD at 13:24 EDT Tel , Service support ,
--- NOTE | 2020-02-01 13:26 | RAD_ITS ---
STUDY: X-RAY - LUMBAR SPINE REASON FOR EXAM: Female, 49 years old. SCIATICA LEFT SIDE TECHNIQUE: 2 view(s) of the lumbar spine were obtained. COMPARISON: None FINDINGS: Normal lumbar lordosis. Mild levoscoliosis. There is a normal alignment of the vertebrae. Normal vertebral bodies and endplates. Normal disc space heights. The soft tissue structures are unremarkable. RAD/Lumbar Spine 2 or 3 Views IMPRESSION: Mild levoscoliosis Electronically Signed: Remigio Henriquez MD at 13:53 EDT Tel , Service support ,
== END ==
PROVIDERS: PCP Family Medicine; Referring Provider Orthopaedic Surgery; Visit Provider Orthopaedic Surgery
DX: Z47.89 Encounter for other orthopedic aftercare (principal); M54.5 Low back pain
CPT/HCPCS: 72100; 73564

== ENCOUNTER → 2020-02-29 13:16 | Outpatient (CLI) | payer OTHER, SELFPAY ==
[2020-02-29 07:52] VITALS: BMI 44.2
--- NOTE | 2020-02-29 13:16 | RAD_ITS ---
STUDY: X-RAY - RIGHT KNEE REASON FOR EXAM: Female, 49 years old. CHRONIC PAIN, NKI TECHNIQUE: 4 view(s) of the knee. COMPARISON: None. FINDINGS: Normal visualized distal femur. Normal visualized proximal tibia and fibula. Normal proximal tibiofibular articulation. There is moderate degenerative arthrosis of the medial femorotibial compartment with moderate joint space narrowing. Normal lateral femorotibial compartment. Normal patellofemoral articulation. Small joint effusion. RAD/Knee 4 or More Views IMPRESSION: Degenerative arthrosis. Small joint effusion. Electronically Signed: George Springer, at 15:34 EDT , Service support ,
== END ==
PROVIDERS: PCP Family Medicine; Referring Provider Orthopaedic Surgery; Visit Provider Orthopaedic Surgery
DX: M25.561 Pain in right knee (principal)
CPT/HCPCS: 73564

== ENCOUNTER → 2020-03-06 09:35 | Outpatient (CLI) | payer OTHER, SELFPAY ==
[2020-02-29 07:52] VITALS: BMI 44.2
--- NOTE | 2020-03-06 09:35 | MRI_ITS ---
STUDY: MRI LUMBAR SPINE WITHOUT CONTRAST REASON FOR EXAM: Female, 49 years old. LEFT radiculopathy, low back pain TECHNIQUE: Standardized fat and water weighted pulse sequences were obtained in the sagittal and axial planes. COMPARISON: None FINDINGS: T12-L1: Normal endplates. Normal disc height, hydration and morphology. Normal bilateral facet joints. Normal central canal and bilateral lateral recesses. Normal bilateral intervertebral neural foramina. Normal lumbar lordosis. There is no substantial scoliosis. Normal conus medullaris that terminates at the at L1 level. L1-2: There is small right foraminal disc bulge. Normal bilateral facet joints. Normal central canal and bilateral lateral recesses. Mild narrowing of the right neural foramen. L2-3: Endplate spondylosis. Decreased disc height and small circumferential disc bulge. Degenerative changes of the bilateral facet joints. Mild narrowing of the central canal and bilateral intervertebral neural foramina. L3-4: Mild degenerative disc changes without significant disc bulge. Normal bilateral facet joints. Normal central canal and bilateral lateral recesses. Normal bilateral intervertebral neural foramina. L4-5: Mild degenerative disc changes without significant disc bulge. Normal bilateral facet joints. Normal central canal and bilateral lateral recesses. Normal bilateral intervertebral neural foramina. L5-S1: Mild degenerative disc changes without significant disc bulge. Normal bilateral facet joints. Normal central canal and bilateral lateral recesses. Normal bilateral intervertebral neural foramina. Normal visualized sacral ala. Normal visualized paraspinous soft tissue structures. MRI/Spine Lumbar (Routine) IMPRESSION: Multilevel degenerative changes, as described above. Electronically Signed: Jasiel Nance, at 11:49 EDT Tel , Service support ,
== END ==
PROVIDERS: PCP Family Medicine; Referring Provider Orthopaedic Surgery; Visit Provider Orthopaedic Surgery
DX: M54.16 Radiculopathy, lumbar region (principal)
CPT/HCPCS: 72148

== ENCOUNTER → 2020-03-09 11:34 | Outpatient (CLI) | payer OTHER, SELFPAY ==
[2020-03-09 07:51] VITALS: BMI 44.2
--- NOTE | 2020-03-09 11:35 | RAD_ITS ---
STUDY: X-RAY - LEFT TIBIA AND FIBULA REASON FOR EXAM: Female, 49 years old. PAIN MID SILVERMAN TECHNIQUE: 2 view(s) of the tibia and fibula were obtained. COMPARISON: None. FINDINGS: Total knee arthroplasty. Hardware defects in the mid tibial diaphysis. No fractures or osteolytic lesions. No periosteal reaction. Soft tissue swelling. RAD/Tibia & Fibula 2 Views IMPRESSION: Hardware defects in the mid tibial diaphysis. No fractures or osteolytic lesions. Electronically Signed: Madhu More MD at 22:47 EDT Tel , Service support ,
== END ==
PROVIDERS: PCP Family Medicine; Visit Provider Orthopaedic Surgery
DX: Z96.652 Presence of left artificial knee joint (principal)
CPT/HCPCS: 73590

== ENCOUNTER 2020-04-11 14:00 | Outpatient (RCR) | payer OTHER, SELFPAY ==
[2019-12-05 15:48] VITALS: BMI 40.1
[2019-12-22 05:50] VITALS: BMI 44.2
--- NOTE | 2019-12-26 17:52 | HP.PTEVAL ---
Patient's Visit Information SUZANNE COVARRUBIAS is a 49 year old F referred to Physical Therapy by Dr. Carlitos Lewis DO with a diagnosis of L TKA. Date of Evaluation: 12/26/19 Physical Therapist: Oz Tavarez PT, ATC - Visit Plan Frequency: 2-3x /Week Duration: 4-6 Weeks Plan: L knee PROM/mobs, stretching and strengthening, balance and proprio, gait training, nustep, and HEP - Subjective DOS: 12/22/2019. Pt had a L TKA performed. Pt reports she had L knee pain for several years prior to this surgery. Pt reports she had an MRI which revealed severe OA. Pt reports she is in a lot of pain at this time. Pt reports she is not glad to have had the surgery yet secondary to her pain. No tingling or numbness in L LE. Pt reports sleep difficulty secondary to pain. 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 Pt lives in a bilevel house and has to negotiate stairs one step at a time. 5/10 pain at rest, 10/10 pain at worst (getting into bed and her L foot slips) - Pain LBP Pain Intensity (Out of 10): 5 Pain Intensity Range: 10 - Objective Neuro: B LE sensation is WNL to lgiht touch. Girth at joint line: L knee 53 cm, R knee 45 cm. ROM: R knee 0-124 degrees. R knee. MMT: R knee 5/5 throughout. L knee 3-/5. Gait: Pt was able to ambulate approximately 120 feet with WW until needing to rest - Goals Goal 1:: Decrease L knee pain x 50% to aid with sleep Goal Time Frame: 4-6 Weeks Goal 2:: Increase L knee ROM x 40 degrees to aid with restoring a more normalized gait pattern Goal Time Frame: 4-6 Weeks Goal 3:: Increase L knee strength x 2 grades to aid with stair negotiation. Goal Time Frame: 4-6 Weeks Goal 4:: I with HEP Goal Time Frame: 4-6 Weeks - Rehabilitation Potential Physical Therapy Diagnosis: L knee pain, weakness, and limited ROM secondary to L TKA Rehabilitation Potential: Good - Anticipated Interventions Patient/Client Instruction: Educate patient on: Condition, Plan of Care For the Purpose of:: To improve self management Therapeutic Exercise to Include: Strength training, Endurance training, Balance training, Flexibilty training, Gait and locomotor training, Passive ROM, Active ROM, Dynamic Lumbar Stabilization For the Purpose of:: To decrease pain, To increase ROM, To improve muscle performance and motor function Manual Therapy Techniques to Include: Mobilization, Passive ROM For the Purpose of:: To decrease pain, To increase ROM Cryotherapy (ice pack, ice massage): Yes For the Purpose of:: To decrease pain Thank you for the opportunity to evaluate your patient. For Medicare and Medicare HMO plans, please review the plan of care and approve it. It will need to be FAXED BACK to us at [phone] for Medicare purposes. For Medicare only, by signing this I certify the plan of care. Please let me know if there are questions or concerns regarding this plan of care. Physician Signature: Date:
--- NOTE | 2020-01-25 15:49 | HP.PTEVAL2_ITS ---
Patient's Visit Information SUZANNE COVARRUBIAS is a 49 year old F referred to Physical Therapy by Dr. Carlitos Lewis DO with a diagnosis of ACUTE MIDLINE LOW BACK PAIN WITHOUT SCIATICA. Date of Evaluation: 01/25/20 Physical Therapist: Morteza Pressley, PT, Cert MDT, OCS - Visit Plan Frequency: 2x /Week Duration: 4 Weeks Plan: PT INTERVENTIONS PATIENT DEUCATION,POSTURE ,MODALTIES FOR PAIN ,RAFY EX'S ONLY ,PROGRESSION OF DLS UNTIL PAIN IS CENTRALIZING - ASSYMMTRICAL /SYMMTRICAL - Subjective Subjective: This 49 y/o female presents physical therapist with acute low back. Patient has had low back pain since last fall prior to TKR. Patient had planterfascitis and right menicus tear and had athrosopic surgery last year .Also ,patient has had injection for planterfascitis. Most recently patient had Left TKR on 12/22/[address] Velasco at [facility] d/c to home. Patient has PT at ,but has difficulty doing PT due to back pain. Located left L-S buttuck -calf - ankle. Dr recommended PT .Patient pain is descibed as pinching and sharp Aggravting factors standing,walking,bending,lifting ,sitting. Alleviating factors pain MEDS.Cough/sneezing -. Denies parathesia/tingling.Patient pain affects sleeping. Patient had x-rays on back .Patient has no trauma. No prior tx. Patient condition affects QOL and function. 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 SOCAIL: - Pain Left Back Intensity: 8 Pain Intensity Range: 10 Left Lower Extremity Intensity: 8 Pain Intensity Range: 10 - Objective Objective: POSTURE: mild foward posture. GAIT: ambulated antalgic gait. NEURO: denies parathesia/tingling,reflexes L3-4,L4-5,L5-S1 1/3. SYMMTRIES: align. FLEXABLITY;: hams min tight. MMT:left quad 4-/5,hip flexion 3+/5,ankle 4/5. LUMBAR ROM: flexion mod loss,extension mod loss,sallie glide min/mod loss - Special Tests Slump test left side: Positive Slump test right side: Negative Left Straight Leg Raise: Positive Right Straight Leg Raise: Negative Flexion - Mechanical Response: No effect Flexion - Symptoms During Testing: Decreases Flexion - Symptoms After Testing: Worse Extension - Mechanical Response: No effect Extension - Symptoms During Testing: Decreases Extension - Symptoms After Testing: No better Right Side Glides - Mechanical Response: No effect Right Side [place] - Symptoms During Testing: No effect Right Side [place] - Symptoms After Testing: No effect Left Side [place] - Mechanical Response: No effect Left Side [place] - Symptoms During Testing: No effect Left Side [place] - Symptoms After Testing: No effect Flexion - Mechanical Response: No effect Flexion - Symptoms During Testing: Decreases Flexion - Symptoms After Testing: Worse Extension - Mechanical Response: No effect Extension - Symptoms During Testing: Centralizing Extension - Symptoms After Testing: Better Comments:: back - Goals Goal 1:: Patient to be I with HEP Goal Time Frame: 4-6 Weeks Goal 2:: Patient to decrease pain lumbar radiculopathy by 50% or > to improve function. Goal Time Frame: 4-6 Weeks Goal 3:: Patient improve lumbar ROM for function of recovery Goal Time Frame: 4-6 Weeks Goal 4:: Patient to improve lumbar ROM for function of recovery Goal Time Frame: 4-6 Weeks Goal 5:: Patient to improve back owestry score by 5 points or > to improve QOL. Goal Time Frame: 4-6 Weeks Goal 6:: Pateint to normalize gait Goal Time Frame: 4-6 Weeks - Rehabilitation Potential Physical Therapy Diagnosis: This patient has lumbar radiculopathy with derranagemt below knee wosre with flexion starting to centralizing with extension ,along with pain ,weakness left leg ,poor ROM impairs wallking and standing. Rehabilitation Potential: Good - Anticipated Interventions Patient/Client Instruction: Educate patient on: Condition, Plan of Care For the Purpose of:: To decrease pain, To increase ROM, To improve muscle performance and motor function, To improve ability to perform ADL's, To improve performance and independence with ADL's, To improve ability of physical actions for home/community/work/leisure, To improve health of tissue, To decrease soft tissue restriction, To increase flexibility/ROM, To improve ability to perform tasks related to life management Therapeutic Exercise to Include: Strength training, Body mechanics, Postural training, Flexibilty training, Dynamic Lumbar Stabilization, Rafy Exercises For the Purpose of:: To decrease pain, To increase ROM, To improve muscle perfo rmance and motor function, To improve ability to perform ADL's, To improve performance and independence with ADL's, To decrease level of supervision to perform tasks, To improve health of tissue, To decrease soft tissue restriction, To increase flexibility/ROM TENS: Yes IF ES: Yes Cryotherapy (ice pack, ice massage): Yes Thermo therapy (hot pack): Yes Ultrasound (thermal/non thermal): Yes For the Purpose of:: To decrease pain, To increase ROM, To improve health of tissue, To decrease soft tissue restriction Thank you for the opportunity to evaluate your patient. For Medicare and Medicare HMO plans, please review the plan of care and approve it. It will need to be FAXED BACK to us at [phone] for Medicare purposes. For Medicare only, by signing this I certify the plan of care. Please let me know if there are questions or concerns regarding this plan of care. Physician Signature: Date:
--- NOTE | 2020-04-11 14:23 | HP.PTDCSUM ---
It has been my pleasure to treat SUZANNE COVARRUBIAS referred by Dr. Carlitos Lewis DO, with the diagnosis of L TKA for a total of 20 visit(s). Discharge Date: Please see the following information for a summary of their discharge status. Subjective: L calf and may sore today. pt had shots in both sides of back last . per pt, Amrit did x-ray on L LE and there are no Fx's. LBP Pain Intensity (Out of 10): 5 Left Knee Pain Intensity (Out of 10): 8 LLE Pain Intensity (Out of 10): 7 % Improvement: 75 Objective/Function: pt feeling much better and did not need the waist float today. Goal 1:: Decrease L knee pain x 50% to aid with sleep Goal 2:: Increase L knee ROM x 40 degrees to aid with restoring a more normalized gait pattern Goal 3:: Increase L knee strength x 2 grades to aid with stair negotiation. Goal 4:: I with HEP Plan: F/u with postural corrections. Add step ups on ledge and squats next. Add gastroc stretch. Cont two charts - back pain and Left TKR. If there are questions or concerns regarding this patient's physical therapy, please feel free to call me at [phone]. Thank you for the referral of this patient. Sincerely, Morteza Pressley, PT, Cert MDT, OCS
--- NOTE | 2020-05-28 15:11 | HP.PT.NRP ---
SUZANNE COVARRUBIAS was seen in my office for initial evaluation on 12/26/19. The following Plan of Care was established for this patient: Initial Frequency: 2-3x /Week Initial Duration: 4-6 Weeks Patient/Client Instruction: Educate patient on: Condition, Plan of Care For the Purpose of:: To improve self management Therapeutic Exercise to Include: Strength training, Endurance training, Balance training, Flexibilty training, Gait and locomotor training, Passive ROM, Active ROM, Dynamic Lumbar Stabilization For the Purpose of:: To decrease pain, To increase ROM, To improve muscle performance and motor function Manual Therapy Techniques to Include: Mobilization, Passive ROM For the Purpose of:: To decrease pain, To increase ROM Cryotherapy (ice pack, ice massage): Yes For the Purpose of:: To decrease pain This patient was last seen in our office . Pertinent comments regarding their Physical therapy will appear below: Pt was treated for L TKA for 20 PT visits through the date of 04/11/20. Pt has not returned through todays date and is discontinued at this time. At this point I will be discontinuing this patient from physical therapy. I would be happy to see this patient again in the future if found appropriate by the physician. Thank you! Oz Tavarez, PT, ATC
== END 2020-04-11 19:00 | disposition home or self-care (01) ==
LOC: PT 14:00
PROVIDERS: PCP Family Medicine; Referring Provider Orthopaedic Surgery; Visit Provider Orthopaedic Surgery
DX: Z47.1 Aftercare following joint replacement surgery (principal); Z96.652 Presence of left artificial knee joint
CPT/HCPCS: 97014; 97110; 97113; 97116; 97140; 97161; 97162; 97530; G0283

== ENCOUNTER 2020-05-01 11:18 | Day surgery (SDC) | payer OTHER, SELFPAY ==
[2020-04-04 14:39] VITALS: BMI 44.2
[2020-04-11 07:55] VITALS: BMI 44.2
[2020-05-01] VITALS (7 sets, daily range): BP systolic 123–157; BP diastolic 72–111; PULSE 69–94; RESP 16–22; TEMP 36.2–37.1; O2SAT 96–100; BMI 42.9
--- NOTE | 2020-05-01 07:49 | PCM.HP.BLA ---
History and Physical Date of Admission: 05/01/20 HISTORY: Ms. Garza is a 49 y/o WF who presents for consideration of screening colonoscopy for screening for colon cancer. She denies any colon cancer in the family. She denies noting any blood in her stools. She denies any abdominal pain at present. She denies any changes in bowel habits. No known colon cancer in family. Denies previous colonoscopy. ? ? PAST MEDICAL HISTORY Diagnosis Date ? Abnormal mammogram, unspecified ? ? right ? Anxiety ? ? on meds ? Connective tissue disease (HCC) ? ? Fibromyalgia ? ? Hypertension ? ? Mental disorder ? ? Raynaud disease ? ? Thyroid disorder ? ? PAST SURGICAL HISTORY Procedure Laterality Date ? EGD W/O OR W/BRUSH/WASH ? 06/29/14 ? EGD ? KNEE SURGERY HX Right 05/27/2019 ? Dr. Mauro at [facility]-torn meniscus ? KNEE SURGERY HX Left 12/22/2019 ? Left total knee arthroplasty CT guided Robotic assisted-Dr. Lewis ? STEREOTACTIC CORE BIOPSY ? 04/12/09 ? right breast ? VAGINAL HYSTERECTOMY ? ? ? ovaries not taken ? FAMILY HISTORY Problem Relation Age of Onset ? Ischemic Heart Disease Father ? ? age 55 of ID ? Thyroid Mother ? ? Hypertension Mother ? ? Diabetes Mother ? ? Social History ? Tobacco Use ? Smoking status: Never Smoker ? Smokeless tobacco: Never Used Substance Use Topics ? Alcohol use: No ? Drug use: No ? Current Outpatient Medications Medication Sig Dispense Refill ? acetaminophen (TYLENOL) 500 mg tablet Take 1,000 mg by mouth. ? ? ? meloxicam (MOBIC) 15 mg tablet ? oxyCODONE ir (OXYIR) 5 mg capsule TAKE1 2 TABS EVERY 4 HOURS NEEDED FOR PAIN ? ? ? gabapentin (NEURONTIN) 100 mg capsule Take 1 capsule by mouth three times daily for 30 days. (Patient not taking: Reported on 02/08/2020) 30 capsule 2 ? predniSONE (DELTASONE) 20 mg tablet Take 2 tablets by mouth once daily. (Patient not taking: Reported on 02/08/2020 10 tablet 0 ? cyclobenzaprine (FLEXERIL) 10 mg tablet Take 1 tablet by mouth three times daily as needed. (Patient not taking: Reported on 02/08/2020 30 tablet 1 ? levothyroxine (SYNTHROID) 50 mcg tablet Take 1 tablet by mouth once daily. 30 tablet 5 ? ALPRAZolam (XANAX) 0.5 mg tablet Take one pill 3-4 times daily as needed for anxiety 120 tablet 2 ? DULoxetine (CYMBALTA) 60 mg capsule Take 1 capsule by mouth once daily. 30 capsule 5 ? lisinopril (ZESTRIL, PRINIVIL) 10 mg tablet Take 1 tablet by mouth once daily. 90 tablet 1 ? COMPOUNDED PRESCRIPTION Dispense one pair of 15-20 mmHg compression hose Put on in morning off at bedtime 1 Package 0 ? ? ALLERGIES Allergen Reactions ? Codeine Vomiting ? ? REVIEW OF SYSTEMS: General - denies any present pain of body, denies fevers, denies anorexia, denies weight loss Cardiovascular - denies chest pain, denies history of ID Pulmonary - denies shortness of breath, denies coughing up blood Gastrointestinal - denies abdominal pain, denies hematemesis, denies blood in stools Neurological - denies seizures, denies chronic numbness/weakness of extremities, denies chronic headaches Genitourinary - denies burning with urination, denies blood in urine Hematological - denies spontaneous/prolonged bleeding Skin - denies nonhealing skin wounds Musculoskeletal - has some chronic back pain - seeing a specialist for this Endocrine - denies diabetes, no thyroid problems Psychological ? denies hallucinations ? ? PHYSICAL FINDINGS OF NOTE: Patient reported height 5'5 and weight 265# lbs ? General ? Normal, healthy, cooperative, in no acute distress Able to interact verbally by video conference Psych ? ORIENTATION: normal to time place, person and situation Mood/Affect: AFFECT AND MOOD: Normal Head/Neuro ? Normal size and shape Facial appearance normal Pulmonary ? respiratory effort normal Cardiovascular ? patient describes extremities normal, warm, no cyanosis,no clubbing and no edema Abdominal ? Performed Obese, Visible protrusions or hernias: No Incisions/scars: None, Areas of pain/tenderness: denies ? Skin ? abnormal lesions visualized Motor ? patient seen sitting with Normal appearing strength and coordination ? Anorectal exam - Not Performed ? IMPRESSION Screening for colon cancer ? ? RECOMMENDATION: I have offered patient colonoscopy for screening for colon cancer. I have discussed alternatives, such as stool guaiac testing/FIT testing/etc - she wishes to proceed with colonoscopy. I have explained the procedure to her. I have counseled the patient as to the risks of the procedure, including but not limited to: infection, bleeding, perforation of the GI tract, injury to any intraabdominal organs such as the liver/spleen, inability to complete the procedure, complications of anesthesia, etc. ? the patient understands. ? The patient was offered a surgery/procedure . The provider and patient have discussed in detail the risk of exposure to and/or potential harm posed by the COVID-19 virus with having a surgery/procedure at this time versus the risk of? delaying the surgery/procedure. It is not possible to know either the risk of delaying the surgery or procedure or chance of getting an infection with perfect accuracy, but a joint decision was made between the patient and the provider ?to proceed at this time with the scheduled surgery/procedure. ? The patient wishes to proceed. I have answered all questions to the patient?s satisfaction and the patient has no further questions. ?
[2020-05-01] MEDS: Lactated Ringers 1,000 ML 75 ML IV (12:01)
--- NOTE | 2020-05-01 12:45 | COLBX_PTH ---
PATIENT: SUZANNE VERMA LOC: EN U#:[id number] AGE/SX: 49/F ROOM: RE05/01/[address]: Dr. Celena Blum MD : 1970 BED: DIS: 05/01/2020 SPEC #: [id number] RECD: 05/01/20 13:52 STATUS: MEHRDAD REJohn #: [id number] BEATRICE: 05/01/20 12:[address]: Celena Blum DEPT: SURGICAL PATHOLOGY RECD BY: Maxime Stout ENTERED: 05/02/20 06:59 SP TYPE: COLON BX OTHR DR: Dr. Walker Hinton MD Tissues: Gastric mucous membrane Procedures: Surgery Specimen Level IV HEADER OPERATION: Colonoscopy (MAC) PRE-OP DIAGNOSIS: Screening TISSUE SUBMITTED: Hepatic flexure polyp MICROSCOPIC DIAGNOSIS Hepatic flexure polyp, biopsy: Fragments of inflammatory polyp. SJ:kymberly 05/03/20 MICROSCOPIC DESCRIPTION Slides are reviewed. GROSS DESCRIPTION Received in fixative is one container labeled with the patient's name and designated hepatic flexure polyp. The specimen consists of multiple irregular fragments of light rubi soft tissue that in aggregate measure 1 x 0.3 x 0.1 cm. The specimen is totally submitted in one cassette. / SJ:kymberly 05/02/20 TC:5 CPT: 73483
--- NOTE | 2020-05-01 13:43 | OP.CCLET_ITS ---
05/01/2020 Walker Hinton [address] [place] [address] Re : Colonoscopy procedure for Chapis Garza Dear Dr. Hinton This procedure was performed on Friday, May 01, 2020. My impressions and recommendations are as follows: Impressions : - One 4 to 9 mm polyp at the hepatic flexure, removed with a cold snare. Resected and retrieved. - Non-bleeding external and internal hemorrhoids. Recommendations : - Discharge patient to home (ambulatory). - Resume previous diet. - Continue present medications. - Await pathology results. - Repeat colonoscopy date to be determined after pending pathology results are reviewed for surveillance based on pathology results. My office will call with this information in 1-2 weeks. - Return to primary care physician PRN. My findings are described in the full procedure note, which is enclosed. If I can be of further assistance, please feel free to contact me at Doctor phone number(s): , Work: . Sincerely, MD Celena Purvis MD 05/01/2020 1:42:20 PM This report has been signed electronically.
--- NOTE | 2020-05-01 13:43 | OP.COLON_ITS ---
Patient Name: Chapis Garza Procedure Date: 05/01/2020 12:50 PM Date of : 1970 Age: 49 Procedure: Colonoscopy Indications: Screening for colorectal malignant neoplasm Providers: Celena Blum MD Referring MD: Walker Hinton Medicines: See the Anesthesia note for documentation of the administered medications Patient Profile: Refer to note in patient chart for documentation of history and physical. Last Colonoscopy: none. The patient's first colonoscopy is today. Complications: No immediate complications. Procedure: Pre-Anesthesia Assessment: - see anesthesia note After I obtained informed consent, the scope was passed under direct vision. Throughout the procedure, the patient's blood pressure, pulse, and oxygen saturations were monitored continuously. The Colonoscope was introduced through the anus and advanced to the cecum, identified by the appendiceal orifice, ileocecal valve and palpation. The colonoscopy was performed without difficulty. The patient tolerated the procedure well. The quality of the bowel preparation was poor, there was still retained fecal material. Therefore lavage and aspiration was done to clear the fecal material. This took some time. The marquis were cleared adequately. Recommendations for two day colon cleansing preparation in the future. Scope In: 1:00:49 PM Scope Withdrawal Time 0 hours 21 minutes 44 seconds Scope Out: 1:37:04 PM Total Procedure Duration Time 0 hours 36 minutes 15 seconds Findings: The perianal and digital rectal examinations were normal. A 4 to 9 mm polyp was found in the hepatic flexure. The polyp was sessile. The polyp was removed with a cold snare. Resection and retrieval were complete. Verification of patient identification for the specimen was done by the nurse. Estimated blood loss was minimal. Non-bleeding external and internal hemorrhoids were found. Impression: - One 4 to 9 mm polyp at the hepatic flexure, removed with a cold snare. Resected and retrieved. - Non-bleeding external and internal hemorrhoids. Recommendation: - Discharge patient to home (ambulatory). - Resume previous diet. - Continue present medications. - Await pathology results. - Repeat colonoscopy date to be determined after pending pathology results are reviewed for surveillance based on pathology results. My office will call with this information in 1-2 weeks. - Return to primary care physician PRN. Procedure Code(s): --- Professional --- 34771, Colonoscopy, flexible; with removal of tumor(s), polyp(s), or other lesion(s) by snare technique Diagnosis Code(s): --- Professional --- Z12.11, Encounter for screening for malignant neoplasm of colon D12.3, Benign neoplasm of transverse colon (hepatic flexure or splenic flexure) K64.8, Other hemorrhoids CPT copyright 2017 [employer]. All rights reserved. The codes documented in this report are preliminary and upon site administrator review may be revised to meet current compliance requirements. MD Celena Purvis MD 05/01/2020 1:42:20 PM This report has been signed electronically. Number of Addenda: 0 Note Initiated On: 05/01/2020 12:50 PM
== END 2020-05-01 14:32 | disposition home or self-care (01) ==
LOC: EN 11:18 → AC 11:19
PROVIDERS: Anesthesiology; PCP Family Medicine; Referring Provider Family Medicine; Visit Provider Surgery
PROC: 0DJD8ZZ Inspection of Lower Intestinal Tract, Via Natural or Artificial Opening Endoscopic (ICD-10-PCS; CPT 45378; principal; 2020-05-01 12:40)
DX: Z20.828 Contact with and (suspected) exposure to other viral communicable diseases (principal); Z12.11 Encounter for screening for malignant neoplasm of colon; K63.5 Polyp of colon; F41.9 Anxiety disorder, unspecified; I10 Essential (primary) hypertension; I73.00 Raynaud's syndrome without gangrene; K64.4 Residual hemorrhoidal skin tags; K64.8 Other hemorrhoids; M79.7 Fibromyalgia; Z79.899 Other long term (current) drug therapy; M35.9 Systemic involvement of connective tissue, unspecified
CPT/HCPCS: 45385; 87635; 88305; C9803; J7120; J2405; U0003

== ENCOUNTER → 2020-06-07 16:48 | Outpatient (CLI) | payer OTHER, SELFPAY ==
[2020-05-01 11:41] VITALS: BMI 42.9
[2020-06-07 17:41] LABS: Absolute Lymphocyte Count 1.87 X10^3/uL (0.83-4.51); Absolute Neutrophil Count 3.3 X10^3/uL (2.0-7.7); Basophil# 0.04 X10^3/uL; Basophil% 0.7 % (0-1); Eosinophil# 0.14 X10^3/uL; Eosinophils% 2.4 % (0-5); Hematocrit 41.9 % (37-47); Hemoglobin 13.4 g/dL (12.0-15.0); Lymphocyte # 1.87 X10^3/ul (4.0); Lymphocyte % 31.4 % (19-41); Mean Corpuscular Hgb 29.6 pg (27.0-32.0); Mean Corpuscular Volume 92.7 fL (81-99); Mean Platelet Vol. 10.2 fl (6.2-12.0); Monocyte# 0.62 X10^3/uL; Monocyte% 10.4 % (0-10); NRBC Flagged by Analyzer 0 % (0-5); Neutrophil # 3.26 X10^3/uL (2.7-7.7); Neutrophil % 54.8 % (47-70); Platelet Count 343 K/mm3 (150-450); RBC Distribution Width CV 14.7 % (11.6-14.6); RBC Distribution Width SD 50.4 fl (35.1-43.9); Red Blood Count 4.52 M/mm3 (4.2-5.4)
[2020-06-07 18:08] LABS: Hemoglobin A1c 5.6 % (3.8-5.6)
[2020-06-07 18:27] LABS: AST(SGOT) 22 U/L (15-37); Alanine Aminotransfer ALT/SGPT 33 U/L (13-56); Albumin, Serum 4.1 g/dL (3.2-5.0); Alkaline Phosphatase 108 U/L (45-117); Anion Gap 6 (5-15); BUN 9 mg/dL (7-18); BUN/Creat Ratio 10.1 RATIO (10-20); Chloride 104 mmol/L (98-107); Cholesterol 217 mg/dL (200); Creatinine, Serum 0.89 mg/dL (0.55-1.02); EST Glomerular Filtration Rate 71 mL/min (>60); Est Glom Filt Rate - Afr Amer 86 mL/min (>60); Globulin 4.3 g/dL (2.2-4.2); Glucose 79 mg/dL (74-106); High Density Lipoprotein 60 mg/dL; Potassium 3.5 mmol/L (3.5-5.1); Protein, Total 8.4 g/dL (6.4-8.2); Sodium Level 138 mmol/L (136-145); T4 Free Direct 0.89 ng/dL (0.76-1.46); Thyroid Stim Hormone (TSH) 2.14 uIU/mL (0.358-3.74); Triglycerides 77 mg/dL; Very Low Density Lipoprotein 15 mg/dL (5-40); Vitamin B12 547 pg/mL (211-911)
[2020-06-07 18:29] LABS: Amphetamine Urine VISTA NEGATIVE (<1000 ng/mL); Barbiturate Urine VISTA NEGATIVE (< 200 ng/mL); Benzodiazepine Urine VISTA POSITIVE (< 200 ng/mL); Cocaine Urine VISTA NEGATIVE (< 300 ng/mL); Ecstacy Urine VISTA NEGATIVE (< 500 ng/mL); Methadone Urine VISTA NEGATIVE (< 300 ng/mL); PCP Urine VISTA NEGATIVE (< 25 ng/mL); THC Urine VISTA NEGATIVE (< 50 ng/mL); Vista UDS pH Range 5
[2020-06-16 12:07] LABS: Vitamin B1, Thiamine 120.7 nmol/L (66.5-200.0)
[2020-06-16 14:33] LABS: Anti-Thyroglobulin AB < 1.0 IU/mL (0.0-0.9); Thyroglobulin, Serum Qt. 44.3 ng/mL (1.5-38.5); Thyroid Peroxidase AB 106 IU/mL (0-34)
== END ==
PROVIDERS: PCP Family Medicine; Visit Provider Family Medicine
DX: I10 Essential (primary) hypertension (principal); E03.9 Hypothyroidism, unspecified; G62.9 Polyneuropathy, unspecified; F32.9 Major depressive disorder, single episode, unspecified; F41.9 Anxiety disorder, unspecified
CPT/HCPCS: 36415; 80053; 80061; 80307; 82607; 83036; 83735; 84425; 84432; 84439; 84443; 85025; 86376; 86800

== ENCOUNTER → 2020-07-11 14:04 | Outpatient (CLI) | payer OTHER, SELFPAY ==
[2020-05-01 11:41] VITALS: BMI 42.9
[2020-07-11 16:33] LABS: Anion Gap 7 (5-15); BUN 10 mg/dL (7-18); BUN/Creat Ratio 11.7 RATIO (10-20); Chloride 106 mmol/L (98-107); Creatinine, Serum 0.85 mg/dL (0.55-1.02); EST Glomerular Filtration Rate 75 mL/min (>60); Est Glom Filt Rate - Afr Amer 90 mL/min (>60); Glucose 77 mg/dL (74-106); Potassium 3.5 mmol/L (3.5-5.1); Sodium Level 141 mmol/L (136-145)
[2020-07-12 06:40] LABS: SARS-COV-2 TOTAL ABS Nonreactive (Nonreactive)
== END ==
PROVIDERS: PCP Family Medicine; Referring Provider Family Medicine; Visit Provider Family Medicine
DX: Z20.828 Contact with and (suspected) exposure to other viral communicable diseases (principal); I10 Essential (primary) hypertension
CPT/HCPCS: 36415; 80048; 86769

== ENCOUNTER → 2020-09-19 13:31 | Outpatient (CLI) | payer OTHER, SELFPAY ==
[2020-05-01 11:41] VITALS: BMI 42.9
[2020-09-19 15:14] LABS: Absolute Neutrophil Count 3.1 X10^3/uL (2.0-7.7); Basophil# 0.04 X10^3/uL; Basophil% 0.7 % (0-1); Eosinophil# 0.08 X10^3/uL; Eosinophils% 1.5 % (0-5); Hematocrit 41.6 % (37-47); Hemoglobin 13.3 g/dL (12.0-15.0); Mean Corpuscular Hgb 29.2 pg (27.0-32.0); Mean Corpuscular Volume 91.2 fL (81-99); Mean Platelet Vol. 11.3 fl (6.2-12.0); Monocyte# 0.55 X10^3/uL; Monocyte% 10.3 % (0-10); NRBC Flagged by Analyzer 0 % (0-5); Neutrophil # 3.06 X10^3/uL (2.7-7.7); Neutrophil % 57.3 % (47-70); Platelet Count 336 K/mm3 (150-450); RBC Distribution Width CV 13.9 % (11.6-14.6); RBC Distribution Width SD 46.4 fl (35.1-43.9); Red Blood Count 4.56 M/mm3 (4.2-5.4); White Blood Count 5.3 K/mm3 (4.4-11.0)
[2020-09-19 15:55] LABS: AST(SGOT) 25 U/L (15-37); Alanine Aminotransfer ALT/SGPT 33 U/L (13-56); Alkaline Phosphatase 100 U/L (45-117); Anion Gap 9 (5-15); BUN 10 mg/dL (7-18); BUN/Creat Ratio 11.3 RATIO (10-20); Calcium,Total 9.2 mg/dL (8.5-10.1); Chloride 104 mmol/L (98-107); Creatinine, Serum 0.88 mg/dL (0.55-1.02); EST Glomerular Filtration Rate 72 mL/min (>60); Est Glom Filt Rate - Afr Amer 87 mL/min (>60); Globulin 4.1 g/dL (2.2-4.2); Glucose 81 mg/dL (74-106); Protein, Total 8.1 g/dL (6.4-8.2); Sodium Level 138 mmol/L (136-145); T4 Free Direct 0.85 ng/dL (0.76-1.46); Thyroid Stim Hormone (TSH) 3.68 uIU/mL (0.358-3.74)
== END ==
PROVIDERS: PCP Family Medicine; Referring Provider Family Medicine; Visit Provider Family Medicine
DX: I10 Essential (primary) hypertension (principal); E03.8 Other specified hypothyroidism
CPT/HCPCS: 36415; 80053; 84439; 84443; 85025

== ENCOUNTER → 2021-01-02 13:37 | Outpatient (CLI) | payer OTHER, SELFPAY ==
[2021-01-02 15:22] LABS: Absolute Lymphocyte Count 1.42 X10^3/uL (0.83-4.51); Absolute Neutrophil Count 3.2 X10^3/uL (2.0-7.7); Basophil# 0.03 X10^3/uL; Basophil% 0.6 % (0-1); Eosinophil# 0.06 X10^3/uL; Eosinophils% 1.2 % (0-5); Hematocrit 40.3 % (37-47); Hemoglobin 13.3 g/dL (12.0-15.0); Lymphocyte # 1.42 X10^3/ul (0.83-4.51); Lymphocyte % 27.5 % (19-41); Mean Corpuscular Volume 90.8 fL (81-99); Mean Platelet Vol. 11.7 fl (6.2-12.0); Monocyte# 0.49 X10^3/uL; Monocyte% 9.5 % (0-10); NRBC Flagged by Analyzer 0 % (0-5); Neutrophil # 3.16 X10^3/uL (2.7-7.7); Platelet Count 291 K/mm3 (150-450); RBC Distribution Width CV 14.1 % (11.6-14.6); Red Blood Count 4.44 M/mm3 (4.2-5.4); White Blood Count 5.2 K/mm3 (4.4-11.0)
[2021-01-02 16:03] LABS: AST(SGOT) 21 U/L (15-37); Alanine Aminotransfer ALT/SGPT 31 U/L (13-56); Albumin, Serum 3.9 g/dL (3.2-5.0); Alkaline Phosphatase 92 U/L (45-117); Anion Gap 4 (5-15); BUN 15 mg/dL (7-18); BUN/Creat Ratio 17.6 RATIO (10-20); Calcium,Total 9.3 mg/dL (8.5-10.1); Chloride 105 mmol/L (98-107); Cholesterol 168 mg/dL (200); Creatinine, Serum 0.85 mg/dL (0.55-1.02); EST Glomerular Filtration Rate 74 mL/min (>60); Est Glom Filt Rate - Afr Amer 90 mL/min (>60); Globulin 3.9 g/dL (2.2-4.2); Glucose 77 mg/dL (74-106); High Density Lipoprotein 53 mg/dL; Protein, Total 7.8 g/dL (6.4-8.2); Sodium Level 138 mmol/L (136-145); T4 Free Direct 1.05 ng/dL (0.76-1.46); Thyroid Stim Hormone (TSH) 0.66 uIU/mL (0.358-3.74); Triglycerides 61 mg/dL; Very Low Density Lipoprotein 12 mg/dL (5-40)
== END ==
PROVIDERS: PCP Family Medicine; Referring Provider Family Medicine; Visit Provider Family Medicine
DX: I10 Essential (primary) hypertension (principal); E03.8 Other specified hypothyroidism
CPT/HCPCS: 36415; 80053; 80061; 84439; 84443; 85025

== ENCOUNTER → 2021-03-15 11:39 | Outpatient (CLI) | payer OTHER, SELFPAY ==
[2021-03-15 15:24] LABS: Absolute Neutrophil Count 2.8 X10^3/uL (2.0-7.7); Basophil# 0.04 X10^3/uL; Basophil% 0.8 % (0-1); Eosinophil# 0.13 X10^3/uL; Eosinophils% 2.5 % (0-5); Hematocrit 38.6 % (37-47); Hemoglobin 12.8 g/dL (12.0-15.0); Lymphocyte % 30.9 % (19-41); Mean Corp Hgb Conc 33.2 g/dL (32-36); Mean Corpuscular Hgb 30.9 pg (27.0-32.0); Mean Corpuscular Volume 93.2 fL (81-99); Mean Platelet Vol. 11.2 fl (6.2-12.0); Monocyte# 0.55 X10^3/uL; Monocyte% 10.6 % (0-10); NRBC Flagged by Analyzer 0 % (0-5); Neutrophil # 2.84 X10^3/uL (2.7-7.7); Neutrophil % 54.8 % (47-70); Platelet Count 296 K/mm3 (150-450); RBC Distribution Width CV 14.6 % (11.6-14.6); RBC Distribution Width SD 50.2 fl (35.1-43.9); Red Blood Count 4.14 M/mm3 (4.2-5.4); White Blood Count 5.2 K/mm3 (4.4-11.0)
[2021-03-15 15:41] LABS: Hemoglobin A1c 5.2 % (3.8-5.6)
[2021-03-15 16:20] LABS: AST(SGOT) 20 U/L (15-37); Alanine Aminotransfer ALT/SGPT 30 U/L (13-56); Albumin, Serum 3.9 g/dL (3.2-5.0); Alkaline Phosphatase 85 U/L (45-117); Anion Gap 9 (5-15); BUN 14 mg/dL (7-18); BUN/Creat Ratio 17.8 RATIO (10-20); Calcium,Total 9.2 mg/dL (8.5-10.1); Chloride 102 mmol/L (98-107); Cholesterol 192 mg/dL (200); Creatinine, Serum 0.79 mg/dL (0.55-1.02); EST Glomerular Filtration Rate 82 mL/min (>60); Est Glom Filt Rate - Afr Amer 99 mL/min (>60); Globulin 3.9 g/dL (2.2-4.2); Glucose 67 mg/dL (74-106); High Density Lipoprotein 60 mg/dL; Potassium 3.8 mmol/L (3.5-5.1); Protein, Total 7.8 g/dL (6.4-8.2); Sodium Level 137 mmol/L (136-145); Thyroid Stim Hormone (TSH) 0.79 uIU/mL (0.358-3.74); Triglycerides 57 mg/dL; Very Low Density Lipoprotein 11 mg/dL (5-40)
== END ==
PROVIDERS: PCP Family Medicine; Referring Provider Nurse Practitioner Family; Visit Provider Nurse Practitioner Family
DX: R53.82 Chronic fatigue, unspecified (principal); M62.81 Muscle weakness (generalized); E66.9 Obesity, unspecified
CPT/HCPCS: 36415; 80053; 80061; 83036; 84443; 85025; 86141

== ENCOUNTER 2021-03-28 18:00 | Outpatient (RCR) | payer OTHER, SELFPAY ==
--- NOTE | 2021-02-28 18:33 | HP.PTEVAL ---
Patient's Visit Information SUZANNE COVARRUBIAS is a 50 year old F referred to Physical Therapy by Dr. Carlitos Lewis DO with a diagnosis of R knee OA. Date of Evaluation: 02/28/21 Physical Therapist: Oz Tavarez, PT, ATC - Visit Plan Frequency: 3x /Week Duration: 4-6 Weeks Plan: L LE stretching and strengthening, core stab ex's, balance and proprio, nustep, and HEP - Subjective Pt reports her R knee has been sore for over 3 years. Pt notes she had her L knee replaced at that time, and actually had just as bad of knee pain on the right side but wanted her L side to heal first. Pt reports she also has LBP and would like to strengthening her L knee but is scared to hurt her LB in the process. Pt reports tingling and numbness but notes that is distal to her knee. Pt reports sleep difficulty at night secondary to pain. Pt reports she has stairs at home and has significant difficulty secondary to pain and weakness. Pt reports she likes to go on walks and hiking trips, and is not able to do any of that at this time secondary to pain. Pt reports her major goal for this is to be able to perform ex's to strengthen her R knee prior to surgery. 6/10 pain at rest, 8/10 pain with stair negotiation. - Pain R knee Pain Intensity (Out of 10): 6 Pain Intensity Range: 8 - Objective Neuro: B LE sensation is WNL to light touch. B achilles reflex= 2/3. Girth at joint line: L knee 47 cm, R knee 45 cm. ROM: B knees 0-5-130 degrees. MMT: R knee 4/5 and painful. L knee 5/5 throughout - Goals Goal 1:: Increase R knee strength x 1 grade to aid with stair negotiation Goal Time Frame: 4-6 Weeks Goal 2:: decrease R knee pain x 50% to aid with sleep Goal Time Frame: 4-6 Weeks Goal 3:: I with HEP Goal Time Frame: 4-6 Weeks - Rehabilitation Potential Physical Therapy Diagnosis: R knee pain, weakness, and limitatiions with ambulation secondary to R knee OA Rehabilitation Potential: Good - Anticipated Interventions Patient/Client Instruction: Educate patient on: Condition, Plan of Care For the Purpose of:: To improve self management Therapeutic Exercise to Include: Strength training, Endurance training, Balance training, Flexibilty training, Active ROM, Dynamic Lumbar Stabilization For the Purpose of:: To decrease pain, To improve muscle performance and motor function Cryotherapy (ice pack, ice massage): Yes For the Purpose of:: To decrease pain Thank you for the opportunity to evaluate your patient. For Medicare and Medicare HMO plans, please review the plan of care and approve it. It will need to be FAXED BACK to us at [phone] for Medicare purposes. For Medicare only, by signing this I certify the plan of care. Please let me know if there are questions or concerns regarding this plan of care. Physician Signature: Date:
--- NOTE | 2021-03-28 18:13 | HP.PTDCSUM ---
It has been my pleasure to treat SUZANNE COVARRUBIAS referred by Dr. Carlitos Lewis DO, with the diagnosis of R knee OA for a total of 6 visit(s). Discharge Date: 03/28/21 Please see the following information for a summary of their discharge status. Subjective: Knee pain is much better. Overall is 90% better. Activities are pretty normal , avoiding floor work. Sleep is fine. No limping. Steps are not a problem. R knee Pain Intensity (Out of 10): 3 % Improvement: 90 Objective/Function: Walking without antalgia. Steps reciprocally without rail and no pain. Strength 5/5 in knees without pain. Wants to be done with PT and continue at pool. Goal 1:: Increase R knee strength x 1 grade to aid with stair negotiation Goal Progress: Goal Met Goal 2:: decrease R knee pain x 50% to aid with sleep Goal Progress: Goal Met Goal 3:: I with HEP Goal Progress: [employer]. Plan: d/c Discharge Comments: To continue at [employer]. If there are questions or concerns regarding this patient's physical therapy, please feel free to call me at [phone]. Thank you for the referral of this patient. Sincerely, Tramaine Gordon, DPT, OCS, CSCS Balance/Gait/Functional tests - Balance/Special Test Scores Lower Extremity Functional Score: 63
== END 2021-03-28 19:00 | disposition home or self-care (01) ==
LOC: PT 18:00
PROVIDERS: PCP Family Medicine; Visit Provider Orthopaedic Surgery
DX: M17.11 Unilateral primary osteoarthritis, right knee (principal)
CPT/HCPCS: 97110; 97161; 97164

== ENCOUNTER 2023-04-08 09:30 | Outpatient (RCR) | payer BC, SELFPAY ==
--- NOTE | 2023-03-17 17:43 | HP.PTEVAL ---
Patient's Visit Information Visit Information Visit Information: SUZANNE VERMA is a 52 year old F referred to Physical Therapy by DARRIN Resendez with a diagnosis of R ITB syndrome adn trochanteric bursitis. Date of Evaluation: 03/17/23 Physical Therapist: Tramaine Gordon, DPT, OCS, CSCS Visit Plan Frequency: 3x /Week Duration: 4-6 Weeks Plan: 3x/week for 4 weeks for 1. rollout and streetch R ITB and piriformis area 2. Teach and progress to Periscope B hip and core strength machines and HEP 3. Stretch R ITB and piriformis TENS and ice as needed Subjective Subjective: R hip hurts laterally pointing to GT and gluteal /piriformis area. Went to [facility] and x ray r/o hip joint. Pain goes down R lateral leg to ankle. Given steroids which helped. It has been hurting for a year without obvious reason. it is worse with standing too long, sitting too long. pain ranges 0-7/10. Was on steroids a couple weeks ago and better. Sitting cross legged makes her stiff. H/o L TKA. Sleep is interrupted due to R hip pain if she lies on that side which she rolls to at night and it wakes her up. 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 Worse many days after work if she stands too much. 11 hour days are rough. Basic ADLs are gtting done but painful, No steps on a regular basis. Hobbies: not a lot. Started at gym Per[employer] doing TM walk and elliptical which can aggravate her. Objective Objective: I gait without antalgia today, steps reciprocally but obviously painful up with R and down with R. Needs rail. transfers bed and chair are I. Tender max over piriformis, itb, and GT on R including TFL , slightly tender in these areas on L. - ZHANG and FADDIR L/s AROM ext and flexion min limited and no pain, SB full and no pain B. - SLR, - slump reflexes 2/3 patella and achilles Sensation LE WNL to gross light touch. tightness obviosu in ITB and piriformis B, min in B quads. AROM hips and knee and ankles WFL, L knee limited flexion due to TKA. weakness obvious in hips at 3+ abd and flexion and ext B, knees 4+/5 knee flexiona nd ext and ankles 4/5 [address] directions B. Balance/Special Test Scores Lower Extremity Functional Score: 52 Goals Goal 1:: Pain R hip intermittent adn 2/10 at worst, 75% better Goal Time Frame: 4-6 Weeks Goal 2:: I appropriate [employer] strength adn HEP stretching to manage situation Goal Time Frame: 4-6 Weeks Goal 3:: LEFS score 60 Goal Time Frame: 4-6 Weeks Goal 4:: stand at work consistently without increased pain Goal Time Frame: 4-6 Weeks Rehabilitation Potential Physical Therapy Diagnosis: R lateral hip pain effecting function and activity Rehabilitation Potential: Good Anticipated Interventions Patient/Client Instruction: Educate patient on: Condition and Plan of Care For the Purpose of:: To decrease pain, To increase ROM, To improve nutrient delivery to tissue, To increase tolerance to activity/condition/position, To improve ability of physical actions for home/community/work/leisure and To improve gait and locomotor functions Therapeutic Exercise to Include: Strength training, Flexibilty training, Passive ROM and Active ROM For the Purpose of:: To decrease pain, To decrease swelling/inflammation, To increase ROM, To improve nutrient delivery to tissue, To improve muscle performance and motor function, To increase tolerance to activity/condition/position and To improve gait and locomotor functions Manual Therapy Techniques to Include: Mobilization, Passive ROM and Soft tissue mobilization For the Purpose of:: To decrease pain, To decrease swelling/inflammation, To increase ROM and To improve nutrient delivery to tissue TENS: Yes Cryotherapy (ice pack, ice massage): Yes For the Purpose of:: To decrease pain, To decrease swelling/inflammation and To improve nutrient delivery to tissue Text: Thank you for the opportunity to evaluate your patient. For Medicare and Medicare HMO plans, please review the plan of care and approve it. It will need to be FAXED BACK to us at [phone] for Medicare purposes. For Medicare only, by signing this I certify the plan of care. Please let me know if there are questions or concerns regarding this plan of care. Physician Signature: Date:
--- NOTE | 2023-06-02 10:45 | HP.PTDCNRP_ITS ---
Patient Information Patient Information: SUZANNE VERMA was seen in my office for initial evaluation on 03/17/23. The following Plan of Care was established for this patient: POC Established Initial Frequency: 3x /Week Initial Duration: 4-6 Weeks Anticipated Interventions Patient/Client Instruction: Educate patient on: Condition and Plan of Care For the Purpose of:: To decrease pain, To increase ROM, To improve nutrient delivery to tissue, To increase tolerance to activity/condition/position, To improve ability of physical actions for home/community/work/leisure and To improve gait and locomotor functions Therapeutic Exercise to Include: Strength training, Flexibilty training, Passive ROM and Active ROM For the Purpose of:: To decrease pain, To decrease swelling/inflammation, To increase ROM, To improve nutrient delivery to tissue, To improve muscle performance and motor function, To increase tolerance to activity /condition/position and To improve gait and locomotor functions Manual Therapy Techniques to Include: Mobilization, Passive ROM and Soft tissue mobilization For the Purpose of:: To decrease pain, To decrease swelling/inflammation, To increase ROM and To improve nutrient delivery to tissue TENS: Yes Cryotherapy (ice pack, ice massage): Yes For the Purpose of:: To decrease pain, To decrease swelling/inflammation and To improve nutrient delivery to tissue Last Seen Last Seen: This patient was last seen in our office 04/08/23. Pertinent comments regarding their Physical therapy will appear below: Pt seen 4 visits of POC but cancelled all remaining POC visits wishing to be discontinued. At this point I will be discontinuing this patient from physical therapy. I would be happy to see this patient again in the future if found appropriate by the physician. Thank you! Tramaine Gordon, DPT, OCS, CSCS Balance/Gait/Functional tests Balance/Special Test Scores Lower Extremity Functional Score: 52
== END 2023-04-08 19:00 | disposition home or self-care (01) ==
LOC: PT 09:30
PROVIDERS: PCP Family Medicine; Referring Provider Physician Assistant; Visit Provider Physician Assistant
DX: M70.61 Trochanteric bursitis, right hip (principal); G57.01 Lesion of sciatic nerve, right lower limb; M76.31 Iliotibial band syndrome, right leg
CPT/HCPCS: 97014; 97110; 97161; G0283

== ENCOUNTER → 2023-08-25 | Outpatient (CLI) | payer BC, SELFPAY ==
--- NOTE | 2023-08-25 16:12 | MRI_ITS ---
HISTORY: Radiculopathy, low back pain radiating to right leg into foot, NKI, tingling bilateral feet. TECHNIQUE: Multiplanar and multisequence MR images of the lumbar spine were obtained without intravenous contrast. 148 images. COMPARISON: XR 02/26/2023, MR 03/06/2020. FINDINGS: Motion artifact lowers the sensitivity of the examination. VERTEBRAE: Vertebral body heights maintained. Mild degenerative endplate changes at multiple levels. No other significant bone marrow signal abnormality. ALIGNMENT: No anterior or posterior subluxation. CONUS: Normal morphology and position of the conus medullaris at L1. INTERVERTEBRAL DISCS: T12-L1: No significant posterior disc protrusion, central canal stenosis, or foraminal narrowing based on the sagittal images. L1-2: Very mild disc bulge eccentric to the right resulting in mild right foraminal narrowing, similar to prior. No significant central canal stenosis. L2-3: Mild disc bulge with facet arthropathy resulting in minimal narrowing of the thecal sac and mild left greater than right foraminal narrowing, slightly progressed from prior. L3-4: Very mild disc bulge with facet arthropathy resulting in minimal narrowing of the thecal sac and mild bilateral foraminal narrowing, mildly progressed from prior. L4-5: Mild disc bulge with facet arthropathy resulting in minimal narrowing of the thecal sac and mild bilateral foraminal narrowing, mildly progressed from prior. L5-S1: No significant posterior disc protrusion, central canal stenosis, or foraminal narrowing. SOFT TISSUES: No paraspinal fluid collection. MRI/Spine Lumbar (Routine) IMPRESSION: Mild interval progression of mild multilevel degenerative disc disease without significant spinal canal stenosis. Mild bilateral foraminal narrowing as above. Electronically Signed: Shaila Gilmore MD at 11:08 EST ,
== END | disposition home or self-care (01) ==
LOC: MRI 16:05
PROVIDERS: PCP Internal Medicine; Referring Provider Anesthesiology Pain Medicine; Visit Provider Anesthesiology Pain Medicine
DX: M54.16 Radiculopathy, lumbar region (principal)
CPT/HCPCS: 72148

== ENCOUNTER 2024-09-12 09:36 | Emergency (ER) | payer BC, SELFPAY ==
[2024-09-12 09:38] VITALS: BP 137/93; PULSE 73; RESP 16; TEMP 36.2; O2SAT 100; BMI 26.2
[2024-09-12 09:48] VITALS: O2SAT 100
--- NOTE | 2024-09-12 10:04 | EKG12_ITS ---
Test Reason : SOB Blood Pressure : */* mmHG Vent. Rate : 60 BPM Atrial Rate : 60 BPM P-R Int : 142 ms QRS Dur : 70 ms QT Int : 434 ms P-R-T Axes : 71 17 41 degrees QTcB Int : 434 ms Normal sinus rhythm Normal ECG Confirmed by Yobani Noel ([id number]), film or videotape editor MORIAH DUNAWAY ([id number]) on 09/14/2024 7:59:27 AM Referred By: AKIN/LÁZARO Confirmed By: Yobani Noel
--- NOTE | 2024-09-12 10:07 | EX.ED.DYSGE1 ---
HPI History of Present Illness Chief Complaint: Shortness of Breath Informant: patient Narrative Narrative: 54-year-old female presenting to the emergency room with generalized weakness and dyspnea. Patient states that on Thursday she developed nausea and vomiting. She has not had any vomiting since but really has not had much to eat or drink since then. No diarrhea. She denies any fevers but notes that she gets waves of feeling warm. She denies headache runny nose sore throat or cough. She states that she does not feel that she can take a deep breath. She has been doing more laying around and sleeping. She denies myalgias or rash. She called her primary care doctor who advised her to come to the emergency room as she had stated that whenever she gets up and walks around she feels more short of breath. She states that she is not treated for any medical problems but she takes a host of medications for conditions such as GERD hypertension hypothyroidism depression anxiety. She notes that she has been able to lay flat. [facility] Medical History MCTD (mixed connective tissue disease) HTN (hypertension) Home Medications ?Medication ?Instructions ?Recorded ?Last Taken ?Type duloxetine 60 mg capsule,delayed 60 mg PO DAILY depression 04/20/19 Unknown History release alprazolam 0.5 mg tablet 0.5 mg PO TID PRN PRN Anxiety 05/17/19 Unknown History acetaminophen 500 mg tablet 1,000 mg (2 x 500 mg) PO Q6H #100 01/23/20 Unknown Rx tabs L.acidoph,paracasei,B.animalis 10 1 ea PO DAILY 04/24/20 Unknown History billion cell capsule ascorbic acid (vitamin C) 1,000 mg 1,000 mg PO DAILY 04/24/20 Unknown History tablet cholecalciferol (vitamin D3) 25 1,000 unit PO DAILY 04/24/20 Unknown History mcg (1,000 unit) tablet gabapentin 300 mg capsule 300 mg PO TID 04/24/20 Unknown History pantoprazole 20 mg tablet,delayed 20 mg PO DAILY 04/24/20 05/01/20 History release amlodipine 5 mg tablet 5 mg PO 02/26/23 Unknown History cyclobenzaprine 10 mg tablet 10 mg PO TID PRN muscle spasm #21 02/26/23 Unknown Rx tabs levothyroxine 75 mcg tablet 75 mcg PO 02/26/23 Unknown History lisinopril 20 mg tablet 20 mg PO 02/26/23 Unknown History etodolac 500 mg tablet 500 mg PO BID #30 tabs 04/15/23 Unknown Rx phentermine 7.5 mg-topiramate ER 1 cap PO 04/15/23 Unknown History 46 mg capsule,ext.release 24hr mphase (Qsymia) Allergy/AdvReac Type Severity Reaction Status Date / Time codeine AdvReac Nausea Verified 09/12/24 09:38 Surgical History History of arthroplasty of left knee Social History Smoking Status: Never smoker ROS ROS ED ROS Narrative Generalized weakness Constitutional Constitutional ED: Reports sweats; Denies chills, fever(s) or weight loss Eyes Eyes: Denies change in vision or diplopia ENT ENT ED: Denies ear pain, rhinorrhea or sore throat Cardiovascular Cardiovascular: Denies chest pain, orthopnea, palpitations or racing heartbeat Respiratory/Chest Respiratory/Chest: Denies cough, dyspnea or orthopnea Gastrointestinal Gastrointestinal: Reports nausea and vomiting; Denies abdominal pain or diarrhea Genitourinary Genitourinary ED: Denies dysuria, hematuria or urinary frequency Musculoskeletal Musculoskeletal: Denies arthralgias or myalgias Integumentary Denies abscess or rash Neurologic Neurologic: Denies headache(s) or weakness Psychiatric Psychiatric: Denies anxiety, depression, suicidal ideation or suicidal thoughts Endocrine Endocrinology: Denies polydipsia, polyphagia or polyuria Allergic/Immunologic Allergic/Immunologic ED: Denies mouth swelling, tongue swelling or urticaria EXAM Physical Exam Const Vital Signs: 09/12/24 09:38 09/12/24 09:48 09/12/24 10:41 Temperature 97.2 F L Temperature Source Oral Pulse Rate 73 56 L Respiratory Rate 16 19 H Respiratory Effort Normal Non-Labored Respiratory Depth Normal Respiratory Pattern Normal Blood Pressure 137/93 H 129/85 H Blood Pressure Mean 107 99 Pulse Ox 100 100 Oxygen Delivery Method Room Air Room Air Room Air 09/12/24 11:08 Temperature 97.8 F Temperature Source Oral Pulse Rate 63 Respiratory Rate 19 H Respiratory Effort Respiratory Depth Respiratory Pattern Blood Pressure 136/98 H Blood Pressure Mean 110 Pulse Ox 99 Oxygen Delivery Method Room Air Positive well nourished and well developed General Appearance ED: well developed HEENT Reports normocephalic, head/scalp atraumatic and moist mucous membranes Eyes PERRL and EOMs intact bilaterally Neck no lymphadenopathy, supple and no JVD Resp normal respiratory effort and clear to auscultation bilaterally Cardio regular rate, regular rhythm and no murmurs GI normal to inspection, nondistended, normoactive bowel sounds and non-tender Palpation: soft Back/Spine no CVA tenderness and normal ROM Extremity normal to inspection General Extremety ED: Negative for edema General Extremity: Negative for edema Neuro oriented x3 and CN's II-XII intact bilaterally Sensorium / Orientation: alert Motor Exam: strength 5/5 throughout Psych mental status grossly normal Mood & Affect: Negative for depressed or tearful Skin no rashes or lesions noted and no wounds MDM MDM MDM Narrative Medical decision making narrative: Differential diagnosis includes but not limited to dyspnea viral syndrome electrolyte maladies dehydration acute coronary syndrome congestive heart failure thyroid dysfunction Manage interpretation of chest x-ray is no acute process. EKG is a normal sinus rhythm with a rate of 60. Troponin is normal urinalysis shows 5-10 white cells 5-10 squamous cells 3+ bacteria negative nitrates. She is asymptomatic from that standpoint and given the squamous cells feel that this is most likely contaminated but most importantly she is asymptomatic. Her white count is slightly low at 4. Normal electrolytes normal creatinine glucose is 95. Patient received a liter of IV fluids. At this point I think the patient can be discharged home. Would recommend follow-up continue rest oral hydration History & Record Review Discussion w/independent historian: Patient Lab Data Attestation: I reviewed the patient's lab results. Labs: Laboratory Results - last 24 hr 09/12/24 09/12/24 10:17 10:25 WBC 4.0 L RBC 4.60 Hgb 13.7 Hct 41.8 MCV 90.9 MCH 29.8 MCHC 32.8 RDW Std Deviation 41.6 RDW Coeff of Álvaro 12.6 Plt Count 288 MPV 9.9 Immature Gran % (Auto) 0.000 Neut % (Auto) 48.8 Lymph % (Auto) 38.9 [place] % (Auto) 10.4 H Eos % (Auto) 1.2 Baso % (Auto) 0.7 Absolute Neuts (auto) 2.0 Absolute Lymphs (auto) 1.57 Nucleated RBC % 0 Sodium 141 Potassium 3.7 Chloride 109 H Carbon Dioxide 22.0 Anion Gap 10 BUN 10 Creatinine 0.91 Estim Creat Clear Calc 69.32 Est GFR (MDRD) Af Amer 83 Est GFR (MDRD) Non-Af 68 BUN/Creatinine Ratio 11.0 Glucose 95 Calcium 9.8 Total Bilirubin 0.50 AST 17 ALT 18 Alkaline Phosphatase 81 Troponin I High Sens 3 Total Protein 7.9 Albumin 4.2 Globulin 3.7 Albumin/Globulin Ratio 1.1 TSH 0.766 Urine Color Yellow Urine Clarity Sl. Cloudy Urine pH 6.0 Ur Specific [place] 1.025 Urine Protein 30 H Urine Glucose (UA) Normal Urine Ketones 5 H Urine Occult Blood Negative Urine Nitrite Negative Urine Bilirubin 1 H Urine Urobilinogen 1 H Ur Leukocyte Esterase 100 H Urine RBC 0-5 SEEN Urine WBC 5-10 SEEN Ur Squamous Epith Cells 5-10 SEEN Calcium Oxalate Crystal 2+ Urine Bacteria 3+ Hyaline Casts 0-5 SEEN Urine Mucus 2+ Radiography Diagnostic Testing: Clinical Impression(s) from Imaging Studies Chest X-Ray 09/12/24 10:35 IMPRESSION: UNREMARKABLE SINGLE VIEW OF THE CHEST. Reading Location: [id number] Discharge Plan Triage Chief Complaint: Shortness of Breath ED Provider: Glen Paul Dx/Rx/DC Orders Clinical Impression: Acute viral syndrome, Acute dyspnea, Fatigue Instructions: ED Viral Syndrome (Adult) Prescriptions: No Action levothyroxine 75 mcg tablet 75 mcg PO Patient Comments: TAKE 1 TABLET BY MOUTH EVERY DAY BEFORE BREAKFAST amlodipine 5 mg tablet 5 mg PO Patient Comments: TAKE 1 TABLET BY MOUTH EVERY DAY lisinopril 20 mg tablet 20 mg PO Patient Comments: TAKE 1 TABLET BY MOUTH EVERY DAY cyclobenzaprine 10 mg tablet 10 mg PO TID PRN (Reason: muscle spasm) Qty: 21 0RF Qsymia 7.5-46 mg capsule, ER multiphase 24 hr 1 cap PO Patient Comments: TAKE 1 CAPSULE BY MOUTH EVERY DAY etodolac 500 mg tablet 500 mg PO BID Qty: 30 1RF Rx Instructions: Do not take in conjunction with other NSAID. Tylenol is okay duloxetine 60 MG capsule,delayed release(DR/EC) 60 mg PO DAILY alprazolam 0.5 MG tablet 0.5 mg PO TID PRN PRN (Reason: Anxiety) ascorbic acid (vitamin C) 1,000 MG tablet 1,000 mg PO DAILY pantoprazole 20 MG tablet 20 mg PO DAILY gabapentin 300 MG capsule 300 mg PO TID cholecalciferol (vitamin D3) 1,000 UNIT tablet 1,000 unit PO DAILY L.acidoph,paracasei,B.animalis 1 EACH capsule 1 ea PO DAILY acetaminophen 500 mg tablet 1,000 mg PO Q6H Qty: 100 1RF Primary Care Provider: Alan Herrera Referrals: Alan Herrera MD [Primary Care Provider] - Activity Restrictions/Additional Instructions: Please follow-up with your doctor as scheduled. Print Language: [place] Disposition Disposition: Home, Self Care
[2024-09-12 10:28] LABS: Color, Urine Yellow (Yellow); Glucose, Dipstick Normal (Normal); Ketone-Dipstick 5 mg/dl (Negative); Leukocyte Esterase-Dipstick 100 /ul (Negative); Nitrite-Dipstick Negative (Negative); Occult Blood-Urine Negative /ul (Negative); Protein-Dipstick 30 mg/dl (Negative); Specific Gravity, Urine 1.025 (1.002-1.030); Urine Clarity Sl. Cloudy (Clear); Urine Urobilinogen 1 mg/dl (Normal)
[2024-09-12] MEDS: 0.9% Normal Saline (1000mL) 1,000 ML 1000 ML IV (10:29)
[2024-09-12 10:33] LABS: Absolute Lymphocyte Count 1.57 X10^3/uL (0.83-4.51); Basophil# 0.03 X10^3/uL; Basophil% 0.7 % (0-1); Eosinophil# 0.05 X10^3/uL; Eosinophils% 1.2 % (0-5); Hematocrit 41.8 % (37-47); Hemoglobin 13.7 g/dL (12.0-15.0); Lymphocyte # 1.57 X10^3/ul (0.83-4.51); Lymphocyte % 38.9 % (19-41); Mean Corp Hgb Conc 32.8 g/dL (32-36); Mean Corpuscular Hgb 29.8 pg (27.0-32.0); Mean Corpuscular Volume 90.9 fL (81-99); Mean Platelet Vol. 9.9 fl (6.2-12.0); Monocyte# 0.42 X10^3/uL; Monocyte% 10.4 % (0-10); NRBC Flagged by Analyzer 0 % (0-5); Neutrophil # 1.97 X10^3/uL (2.7-7.7); Neutrophil % 48.8 % (47-70); Platelet Count 288 K/mm3 (150-450); RBC Distribution Width CV 12.6 % (11.6-14.6); RBC Distribution Width SD 41.6 fl (35.1-43.9)
[2024-09-12 10:33] LABS: Urine Bilirubin Dipstick 1 mg/dL (Negative)
[2024-09-12 10:35] LABS: Bacteria 3+ /hpf (None Seen); Red Blood Cells-Urine 0-5 SEEN /hpf (0-5); White Blood Cells 5-10 SEEN /hpf (0-5)
--- NOTE | 2024-09-12 10:35 | RAD_ITS ---
PROCEDURE: CHEST 1 VIEW (PORTABLE) REASON FOR EXAM: Shortness of breath. TECHNIQUE: Single frontal image including the chest and abdomen. COMPARISON: Comparison is made with prior study dated February 16, 2019. FINDINGS: The cardiothymic contour is normal. The lungs are clear. No acute infiltrate is seen. The bones are unremarkable. RAD/Chest 1 View (Portable) IMPRESSION: UNREMARKABLE SINGLE VIEW OF THE CHEST. Reading Location: [facility]
[2024-09-12 10:36] LABS: Calcium Oxalate Crystals Ur 2+ /hpf (<or=2+); Hyaline Cast 0-5 SEEN /lpf (0-5); Squamous Epithelial Cells - UA 5-10 SEEN /hpf (5-10)
[2024-09-12 10:37] LABS: Mucous, Urine 2+ /hpf (<or=2+)
[2024-09-12 10:41] VITALS: BP 129/85; PULSE 56; RESP 19; O2SAT 100
[2024-09-12 11:02] LABS: ALB/GLOB Ratio 1.1 RATIO (0.9-2.4); AST(SGOT) 17 U/L (15-37); Alanine Aminotransfer ALT/SGPT 18 U/L (13-56); Albumin, Serum 4.2 g/dL (3.2-5.0); Alkaline Phosphatase 81 U/L (45-117); Anion Gap 10 (5-15); BUN 10 mg/dL (7-18); Calcium,Total 9.8 mg/dL (8.5-10.1); Chloride 109 mmol/L (98-107); Creatinine, Serum 0.91 mg/dL (0.55-1.02); EST Glomerular Filtration Rate 68 mL/min (>60); Est Glom Filt Rate - Afr Amer 83 mL/min (>60); Estimated Creatinine Clearance 69.32 ml/min; Globulin 3.7 g/dL (2.2-4.2); Glucose 95 mg/dL (74-106); Potassium 3.7 mmol/L (3.5-5.1); Protein, Total 7.9 g/dL (6.4-8.2); Sodium Level 141 mmol/L (136-145); Thyroid Stim Hormone (TSH) 0.766 uIU/mL (0.358-3.740); Troponin-I HS 3 pg/mL (3.0-54.0)
[2024-09-12 11:08] VITALS: BP 136/98; PULSE 63; RESP 19; TEMP 36.6; O2SAT 99
[2024-09-12 12:02] VITALS: BP 132/80; PULSE 76; RESP 15; TEMP 36.9; O2SAT 99
== END 2024-09-12 12:04 | disposition home or self-care (01) ==
PROVIDERS: Emergency Provider Emergency Medicine; PCP Internal Medicine; Visit Provider Emergency Medicine
DX: B34.9 Viral infection, unspecified (principal); I10 Essential (primary) hypertension; R06.02 Shortness of breath; R53.83 Other fatigue; R11.2 Nausea with vomiting, unspecified
CPT/HCPCS: 71045; 80053; 81001; 84443; 84484; 85025; 87631; 93005; 96360; 99284

== ENCOUNTER → 2025-04-05 | Outpatient (CLI) | payer BC, SELFPAY ==
[2025-04-05 16:39] LABS: Hematocrit 38.8 % (37-47); Hemoglobin 12.8 g/dL (12.0-15.0); Immature Granulocytes Count 0.010 X10^3/uL (0.0-0.0); Mean Corp Hgb Conc 33.0 g/dL (32-36); Mean Corpuscular Volume 92.8 fL (81-99); Mean Platelet Vol. 11.1 fl (6.2-12.0); NRBC Flagged by Analyzer 0 % (0-5); Platelet Count 256 K/mm3 (150-450); RBC Distribution Width CV 13.4 % (11.6-14.6); RBC Distribution Width SD 45.5 fl (35.1-43.9); Red Blood Count 4.18 M/mm3 (4.2-5.4); White Blood Count 5.1 K/mm3 (4.4-11.0)
[2025-04-05 16:49] LABS: AST(SGOT) 20 U/L (<=31); Alanine Aminotransfer ALT/SGPT 16 U/L (<=34); Albumin, Serum 4.5 g/dL (3.5-5.0); Alkaline Phosphatase 75 U/L (35-104); Anion Gap 12 (5-15); BUN 17 mg/dL (4-19); BUN/Creat Ratio 22.0 RATIO (10-20); Calcium,Total 9.8 mg/dL (7.6-11.0); Carbon Dioxide 24.1 mmol/L (21.0-32.0); Chloride 105 mmol/L (98-108); Globulin 3.0 g/dL (2.2-4.2); Glucose 84 mg/dL (70-99); Potassium 4.2 mmol/L (3.3-5.1)
[2025-04-07 05:07] LABS: Prealbumin 27 mg/dL (10-36)
== END | disposition home or self-care (01) ==
LOC: LAB 14:28
PROVIDERS: PCP Internal Medicine; Referring Provider Surgery Plastic and Reconstructive Surgery; Visit Provider Surgery Plastic and Reconstructive Surgery
DX: M79.3 Panniculitis, unspecified (principal)
CPT/HCPCS: 36415; 80053; 84134; 85025

== ENCOUNTER 2025-04-19 12:10 | Inpatient (IN) | payer BC, SELFPAY ==
[2025-03-30 09:47] LABS: Hematocrit 38.1 % (37-47); Hemoglobin 12.8 g/dL (12.0-15.0); Immature Granulocytes Count 0.010 X10^3/uL (0.0-0.0); Mean Corp Hgb Conc 33.6 g/dL (32-36); Mean Corpuscular Volume 92.0 fL (81-99); Mean Platelet Vol. 10.2 fl (6.2-12.0); NRBC Flagged by Analyzer 0 % (0-5); Platelet Count 274 K/mm3 (150-450); RBC Distribution Width CV 13.5 % (11.6-14.6); RBC Distribution Width SD 45.7 fl (35.1-43.9); Red Blood Count 4.14 M/mm3 (4.2-5.4); White Blood Count 5.7 K/mm3 (4.4-11.0)
[2025-03-30 10:18] LABS: AST(SGOT) 23 U/L (<=31); Alanine Aminotransfer ALT/SGPT 13 U/L (<=34); Albumin, Serum 4.3 g/dL (3.5-5.0); Alkaline Phosphatase 74 U/L (35-104); Anion Gap 11 (5-15); BUN 13 mg/dL (4-19); BUN/Creat Ratio 19.1 RATIO (10-20); Calcium,Total 9.4 mg/dL (7.6-11.0); Carbon Dioxide 23.0 mmol/L (21.0-32.0); Chloride 106 mmol/L (98-108); Globulin 2.8 g/dL (2.2-4.2); Glucose 94 mg/dL (70-99); Potassium 3.9 mmol/L (3.3-5.1)
[2025-03-31 04:07] LABS: Prealbumin 28 mg/dL (10-36)
[2025-04-19] VITALS (21 sets, daily range): BP systolic 131–170; BP diastolic 55–100; PULSE 54–91; RESP 12–54; TEMP 36–37.2; O2SAT 94–100; BMI 24.2
[2025-04-19] MEDS: Lactated Ringers 1,000 ML 15 ML IV (06:30)
--- NOTE | 2025-04-19 07:04 | PRE.ANES_ITS ---
ASA Classification* ASA Classification ASA Classification: 2 Assessment & Plan Anesthesia* Anesthesia Assessment Anesthesia Assessment: Discussed sedation and/or anesthesia options, risks, benefits, and alternatives with patient/parents/legal guardian/POA. Questions invited. The patient/parents/legal guardian/POA seems to understand and agrees to proceed with anesthesia plan. Reviewed the physical assessment, medical history, allergy history and patient home medications list prior to surgery/procedure/anesthetic and documented any changes. Performed airway and anesthesia risk assessments. Anesthesia Type Anesthesia Type: General History Source History Obtained from:: Patient and Chart Anesthesia Focused Assessment* Temperature: 97.7 F Pulse Rate: 54 Blood Pressure: 145/81 Respiratory Rate: 12 Pulse Ox: 100 Oxygen Delivery Method: Room Air Airway Assessment Mouth opens: >3 cm Mallampati Score: II Teeth Condition: Intact Labs Anesthesia Preop lab: CBC WBC, (4.4-11.0) 5.1 K/mm3 04/05/25, 14:30 RBC, (4.2-5.4) 4.18 M/mm3 L 04/05/25, 14:30 Hgb, (12.0-15.0) 12.8 g/dL 04/05/25, 14:30 Hct, (37-47) 38.8 % 04/05/25, 14:30 Plt Count, (150-450) 256 K/mm3 04/05/25, 14:30 CHEMISTRY Potassium, (3.3-5.1) 4.2 mmol/L 04/05/25, 14:30 Sodium, (133-145) 141 mmol/L 04/05/25, 14:30 Magnesium, (1.6-2.6) 2.0 mg/dL 06/07/20, 16:50 BUN, (4-19) 17 mg/dL 04/05/25, 14:30 Creatinine, (0.70-1.20) 0.77 mg/dL 04/05/25, 14:30 Glucose, (70-99) 84 mg/dL 04/05/25, 14:30 POC Glucose, (70-110) 146 mg/dL H 12/22/19, 13:48 TSH, (0.358-3.740) 0.766 uIU/mL 09/12/24, 10:25 COAG PT, (11.7-14.9) 12.9 SECONDS 12/14/19, 14:02 Pre-Assessment Diagnosis/Proposed Procedure Planned Operative Procedure(s): (B) Roesanna christopher panniculectomy Anesthesia History Anesthesia History - field contact technician: Anesthesia History - field contact technician Hx Hospitalization No 04/05/25 12:38 Any Problems With Anesthesia Yes: PONV 04/05/25 12:38 Cholinesterase deficiency No 04/05/25 12:38 You/Your Family Experience No 04/05/25 12:38 fever (hyperthermia) with Relationship Recent Exposure to Contagious No 04/19/25 06:40 Disease Does patient have nerve No 04/05/25 12:38 stimulator Patient instructed to have device shut off --Does patient have Pacemaker No 04/19/25 06:40 or ICD? When Was Last Pacemaker Check QUESTION #4 FULL TEXT: You/Your Family Experience fever (hyperthermia) with Anesthesia Last Oral Intake Last Oral intake: Last Oral Intake NPO since 20:30 04/19/25 06:40 Meds taken in AM with sips of No 04/19/25 06:40 water? Meds patient instructed to take am of surgery PONV PONV - field contact technician: PONV - field contact technician Female Yes 04/05/25 12:38 HX of Motion Sickness No 04/05/25 12:38 HX of N/V After Surgery Yes 04/05/25 12:38 Non-Smoker Yes 04/05/25 12:38 Duration of Surgery greater Yes 04/05/25 12:38 than 60 minutes Number of Risk Factors 4 04/05/25 12:38 PONV Score Severe Risk 04/05/25 12:38 Height & Weight Height & Weight: Anesthesia: Height & Weight Height 5 ft 5 in 04/19/25 06:40 Weight: 66 kg 04/19/25 06:40 Body Mass Index (BMI) 24.2 04/19/25 06:40 Respiratory Assessment Respiratory Assessment - field contact technician: Respiratory Tract Infection Hx - field contact technician Hx Respiratory Tract Infection No 04/05/25 12:38 STOP Sleep Apnea STOP Sleep Apnea - field contact technician: STOP Sleep Apnea - field contact technician Hx Hypertension No 04/05/25 12:38 Hx Sleep Apnea No 04/05/25 12:38 CPAP Yes 05/01/20 13:42 BIPAP No 04/24/20 13:35 Do you snore loudly (louder No 04/05/25 12:38 than talking or can be heard Do you often feel tired/ No 04/05/25 12:38 fatigued/ sleepy during daytime? Has anyone observed you stop No 04/05/25 12:38 breathing during sleep? STOP Results Negative 04/05/25 12:38 QUESTION #5 FULL TEXT : Do you snore loudly (louder than talking or can be heard through closed doors)? 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 Specify any problems Hx of Preganancy in last 3 N/A 04/05/25 12:38 Months Nurse Filling Out Transfusion NBUCHER 04/05/25 12:38 & Questions: Date: 04/05/25 04/05/25 12:38 Time: 12:40 04/05/25 12:38 Patient unable to answer at this time (ie. confused, unrespo /Reproduction History /Reproductive History - field contact technician: /Reproductive Hx- field contact technician Hx Now No 04/05/25 12:38 Gestational Age (in weeks): EDC: Hx Hx Para Hx Section SAB No 04/05/25 12:38 Active Medications Active Medications: Current Medications Generic Name Dose Route Start Last Admin Trade Name Freq PRN Reason Stop Dose Admin Lidocaine HCl 50 ml/ 0 ml 04/19/25 07:30 Epinephrine HCl 1 mg/ Lactated OPERA.SITE 04/19/25 07:31 Ringer's 949 ml X1 ONE Lidocaine HCl 50 ml/ 0 ml 04/19/25 07:30 Epinephrine HCl 1 mg/ Lactated OPERA.SITE 04/19/25 07:31 Ringer's 949 ml X1 ONE Lidocaine HCl 50 ml/ 0 ml 04/19/25 07:30 Epinephrine HCl 1 mg/ Lactated OPERA.SITE 04/19/25 07:31 Ringer's 949 ml X1 ONE Cefazolin Sodium 2 gm/ Sodium 110 mls @ 200 mls/hr 04/19/25 07:30 Chloride IV 04/19/25 08:02 INTRAOP ONE Lactated Ringer's 1,000 mls @ 15 mls/hr 04/19/25 06:30 IV .Q48H GABRIELLE PFSH Medical History Wears glasses Wears dentures Anxiety Hypothyroid Thyroid disease Non-smoker GERD (gastroesophageal reflux disease) MCTD (mixed connective tissue disease) HTN (hypertension) Home Medications ?Medication ?Instructions ?Recorded ?Last Taken ?Type alprazolam 0.5 mg tablet 0.5 mg PO TID PRN PRN Anxiet y 05/17/19 04/18/25 History L.acidoph,paracasei,B.animalis 10 1 ea PO DAILY 04/12/25 History billion cell capsule ascorbic acid (vitamin C) 1,000 mg 1,000 mg PO DAILY 1 04/12/25 History tablet cholecalciferol (vitamin D3) 25 1,000 unit PO DAILY 04/18/25 History mcg (1,000 unit) tablet pantoprazole 20 mg tablet,delayed 20 mg PO DAILY 04/2404/18/25 History release levothyroxine 75 mcg tablet 75 mcg PO DAILY 02/26/23 0 04/18/25 History Allergy/AdvReac Type Severity Reaction Status Date / Time codeine AdvReac Nausea Verified 04/19/25 06:38 Surgical History History of esophagogastroduodenoscopy (EGD) History of hysterectomy History of colonoscopy History of arthroplasty of left knee Social History Smoking Status: Never smoker Addt'l Information Additional Findings: >4 METS; EKG NSR Review of Systems (Anesthesia) ROS Narrative System reviewed and no additional complaints, except as documented. Physical Exam Const alert and oriented x3 Resp normal respiratory effort and normal air movement Auscultation: clear to auscultation bilaterally Cardio regular rate and regular rhythm Back/Spine normal ROM Neuro oriented x3 and moves all extremities
--- NOTE | 2025-04-19 07:12 | PCM.HP.STD ---
HPI - General HPI Narrative SUZANNE VERMA, is a 54 F who presents today for [id number] panniculectomy with posterior medial brachioplasty bilaterally with Dr. Frazier. She was initially seen in consultation on 02/16/25 for excess skin following significant weight loss. PMH significant for obesity, with her heaviest weight being 265 pounds prior to her knee replacement surgery in 2019. Over the past five years, she has lost 118 pounds through diet, exercise, and the use of Ozempic, and her current weight is approximately 145 pounds, with a BMI of 24 and has been stable. Her surgical history includes a knee replacement in 2020 which she denied wound healing issues postoperatively. She denies any history of diabetes, smoking, or blood clotting disorders, and she has no family history of blood clots. She has a previous diagnosis of a mixed connective tissue disorder that was reportedly causing some arthritis approximately 10 years ago with steroids by Dr. Hayden. Since losing weight and her knee surgery she has not not had a problem nor needed to take steroids again. 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 The rashes and the excess skin from her abdominal apron as well as her arms are causing her skin irritation while she is wearing clothing throughout the day and affecting her activities of daily living secondary to the excess skin and the pain it causes from her poorly fitted clothing. After risks, benefits and alternatives were discussed with Dr. Frazier, she wished to proceed with surgery and informed consent was obtained. [facility] Medical History Wears glasses Wears dentures Anxiety Hypothyroid Thyroid disease Non-smoker GERD (gastroesophageal reflux disease) MCTD (mixed connective tissue disease) HTN (hypertension) Home Medications ?Medication ?Instructions ?Recorded ?Last Taken ?Type alprazolam 0.5 mg tablet 0.5 mg PO TID PRN PRN Anxiety 05/17/19 04/18/25 History L.acidoph,paracasei,B.animalis 10 1 ea PO DAILY 04/24/20 04/12/25 History billion cell capsule ascorbic acid (vitamin C) 1,000 mg 1,000 mg PO DAILY 04/24/20 04/12/25 History tablet cholecalciferol (vitamin D3) 25 1,000 unit PO DAILY 04/24/20 04/18/25 History mcg (1,000 unit) tablet pantoprazole 20 mg tablet,delayed 20 mg PO DAILY 04/24/20 04/18/25 History release levothyroxine 75 mcg tablet 75 mcg PO DAILY 02/26/23 04/18/25 History Allergy/AdvReac Type Severity Reaction Status Date / Time codeine AdvReac Nausea Verified 04/19/25 06:38 Surgical History History of esophagogastroduodenoscopy (EGD) History of hysterectomy History of colonoscopy History of arthroplasty of left knee Social History Smoking Status: Never smoker ROS ROS Narrative General: Denies fever, chills HEENT: Denies headaches, vision changes, sore throat Cardio: Denies chest pain, leg edema Pulmonary: Denies shortness of pain, cough, wheezing GI: Denies nausea, vomiting, diarrhea Vital Signs Vital Signs Vital Signs: 04/19/25 06:40 04/19/25 06:40 04/19/25 07:08 Temperature 97.7 F L 97.7 F L Temperature Source Temporal Pulse Rate 54 L 54 L Respiratory Rate 12 12 Respiratory Pattern Normal Blood Pressure 145/81 H 145/81 H Blood Pressure Mean 102 Blood Pressure Source Monitor Blood Pressure Position Semi-Fowlers Blood Pressure Location Left Arm Pulse Ox 100 100 Oxygen Delivery Method Room Air Room Air Weight Weight: 145 lb 8.081 oz Body Mass Index (BMI) 24.2 Results Lab / Micro Data 03/30/25 09:16 03/30/25 09:16
--- NOTE | 2025-04-19 07:43 | PCM.HP.STD ---
HPI - General HPI Narrative The patient is a 54-year-old female presenting for evaluation of excess skin following significant weight loss. She has a history of obesity, with her heaviest weight being 265 pounds prior to her knee replacement surgery in 2019. Over the past five years, she has lost 118 pounds through diet, exercise, and the use of Ozempic, and her current weight is approximately 145 pounds, with a BMI of 24. The patient reports that the excess skin on her abdomen and arms is bothersome, with the abdominal panniculus hanging over 4 cm to the pubic symphysis and causing rashes that are unresponsive to powders. 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 Her medical history includes a knee replacement in 2019, hypothyroidism for which she takes a thyroid pill, gastroesophageal reflux disease managed with antacids, and anxiety for which she takes medication. She denies any history of diabetes, smoking, or blood clotting disorders, and she has no family history of blood clots. ROS: - General: Denies current weight loss, reports stable weight. - Dermatological: Reports rashes under abdominal panniculus. - Endocrine: Denies diabetes. - Psychiatric: Reports anxiety. The rashes and the excess skin from her abdominal apron as well as her arms are causing her skin irritation while she is wearing clothing throughout the day and affecting her activities of daily living secondary to the excess skin and the pain it causes from her poorly fitted clothing. Attestation: Documentation on this patient encounter was supported using ambient scribe technology/ voice AI technology. The patient consented to recording for the purpose of documenting the encounter. Provider reviewed content of the generated note prior to signature. 30 Mar 2025: Here today to discuss surgery which was approved by insurance. No significant change in health history since she was last seen. Of note she reports that she was treated for a mixed connective tissue disorder that was reportedly causing some arthritis approximately 10 years ago with steroids by Dr. Hayden, but she has not been on these for about 8 years and has not had problems since losing weight and getting a left knee replacement. She did not have any wound healing complications after the knee replacement. Current Encounter (DATE OF SURGERY H&P UPDATE): I saw and examined the patient this morning in pre-operative holding. We discussed risks and benefits of today's surgery and they would like to proceed. NO CHANGE in health history since last seen and evaluated. Ready to proceed with surgery. [facility] Medical History Wears glasses Wears dentures Anxiety Hypothyroid Thyroid disease Non-smoker GERD (gastroesophageal reflux disease) MCTD (mixed connective tissue disease) HTN (hypertension) Home Medications ?Medication ?Instructions ?Recorded ?Last Taken ?Type alprazolam 0.5 mg tablet 0.5 mg PO TID PRN PRN Anxiety 05/17/19 04/18/25 History L.acidoph,paracasei,B.animalis 10 1 ea PO DAILY 04/24/20 04/12/25 History billion cell capsule ascorbic acid (vitamin C) 1,000 mg 1,000 mg PO DAILY 04/24/20 04/12/25 History tablet cholecalciferol (vitamin D3) 25 1,000 unit PO DAILY 04/24/20 04/18/25 History mcg (1,000 unit) tablet pantoprazole 20 mg tablet,delayed 20 mg PO DAILY 04/24/20 04/18/25 History release levothyroxine 75 mcg tablet 75 mcg PO DAILY 02/26/23 04/18/25 History Allergy/AdvReac Type Severity Reaction Status Date / Time codeine AdvReac Nausea Verified 04/19/25 06:38 Surgical History History of esophagogastroduodenoscopy (EGD) History of hysterectomy History of colonoscopy History of arthroplasty of left knee Social History Smoking Status: Never smoker Vital Signs Vital Signs Vital Signs: 04/19/25 06:40 04/19/25 06:40 04/19/25 07:08 Temperature 97.7 F L 97.7 F L Temperature Source Temporal Pulse Rate 54 L 54 L Respiratory Rate 12 12 Respiratory Pattern Normal Blood Pressure 145/81 H 145/81 H Blood Pressure Mean 102 Blood Pressure Source Monitor Blood Pressure Position Semi-Fowlers Blood Pressure Location Left Arm Pulse Ox 100 100 Oxygen Delivery Method Room Air Room Air Weight Weight: 145 lb 8.081 oz Body Mass Index (BMI) 24.2 Physical Exam Narrative Details - Abdominal: Panniculus hangs over 4 cm to the pubic symphysis, rashes present under abdominal apron. - Upper Extremities: Bat wing deformity with minimal extension onto the chest. - Abdominal: No hernias detected, minimal diastasis noted. Results Lab / Micro Data 03/30/25 09:16 03/30/25 09:16 Assessment & Plan Assessment/Plan (1) Excess skin of arm: (2) Panniculitis: PLAN: Plan I talked to the patient extensively about the risks of surgery, including bleeding, infection, damage to surrounding structures, poor scaring, surgical site dehiscence and wound formation, need for wound care, need for repeat operations, failure to obtain the desired result, DVT/PE, and the risks of anesthesia including , including stroke (from low blood pressure/ischemia or clot). The benefits and alternatives of this surgery were also discussed. All of their questions were answered, and they agreed to proceed with surgery. Calculated the Caprini score and it was 3 I talked her about the overall risk of blood clots and how she needs to ambulate immediately after surgery. I talked her about the risk of wound healing complications with doing the arms and [id number] at the same time as these are longer incisions and more areas for her to heal. She would like to do it all at once, and she understands the postoperative recovery period with drains and need for assistance at home (she has several family members to help her). Furthermore, emphasizing this this morning, I spoke with her about existing asymmetries (umbilicus being to the left) of the abdomen and arms, and discussed how we can anticipate some asymmetries post-operatively. She would like to proceed with surgery Plan for [id number] panniculectomy with posterior medial brachioplasty bilaterally I discussed with her extensively the scar placement and anticipated scars postoperatively. We furthermore talked about existing asymmetries and anticipated asymmetry postoperatively as well as some residual skin redundancy so as to not make her skin too tight at the completion of the case and have further likelihood of wound healing complications. She was in agreement with this plan. INTERVAL H&P PLAN, DATE OF SURGERY: We will proceed with surgery today.
[2025-04-19] MEDS: Lidocaine 1% (5 ml sdv) 5 ML Vial IV (08:03)
[2025-04-19] MEDS: TAS 0.05% 1000 mls w/ LR OPERA.SITE (08:20)
[2025-04-19] MEDS: PROPOFOL 66.96 MG IV (08:20)
[2025-04-19] MEDS: DiphenhydrAMINE 50 MG/ML Syringe 25 MG IV (08:30)
[2025-04-19] MEDS: fentaNYL 100 MCG/2 ML Ampul IV (09:43)
[2025-04-19] MEDS: dexMEDEtomidine 200 MCG/2 ML ML 32 MCG IV (10:41)
[2025-04-19] MEDS: Cefazolin 1 GM/5 ML Vial 4 GM IV (11:52)
--- NOTE | 2025-04-19 12:32 | PCM.POST.ANE ---
Anesthesia: Postop Eval I Current Vital Signs Temperature: 96.9 F Pulse Rate: 58 Blood Pressure: 140/84 Respiratory Rate: 14 Pulse Ox: 100 Oxygen Delivery Method: Room Air Assessment Airway patent: Yes Spontaneous unlabored respirations: Yes Mental status: Awake and Calm nausea: No Vomiting: No Anesthesia Complication: No Fluid Hydration Crystalloid volume administer (ml): 2,600 Total IV fluid infused: 2,600 Progress Note Anesthesia document: Postop Eval 1 completed: Yes
--- NOTE | 2025-04-19 12:48 | PCM.OPRPT ---
Operative Report (Standard) Operative Information Date of Procedure: 04/19/25 Pre-Operative Diagnosis: Massive weight loss with excess abdominal and arm skin Post-Operative Diagnosis: Same Surgery/Procedure Performed: 1) bilateral avulsion brachioplasty, posterior medial 2) [id number] panniculectomy edi manager: Yes Field Artillery Targeting Technician: Delon Jordan Tasks completed by occupational therapist's assistant: Closing and Retracting Additional assistant manager airside operations?: Yes Additional Enamel Finisher #2: Yesenia Stock Tasks completed by assistant manager airside operations #2: Closing and Retracting Type of Anesthesia: General/Supplemental (500 cc of tumescent solution (950 cc of lactated Ringer's, 50 cc of 1% lidocaine, 1 mg epinephrine) and 30 cc of quarter percent Marcaine plain (along the incisions at the completion of the case) ) RN Documented Start/Stop Times: Operation Date: 04/19/25 07:30 Case Time Into Pre-Op 04/19/25 06:20 Out of Pre-Op 04/19/25 07:53 Anesthesia Start 04/19/25 07:56 Into Room 04/19/25 07:56 Procedure Start 04/19/25 08:19 Procedure End 04/19/25 12:02 Anesthesia End 04/19/25 12:13 Out of Room 04/19/25 12:13 Into Recovery 04/19/25 12:17 Procedure Start Time: 08:19 Procedure Stop Time: 12:02 Select all DRAINS/GRAFTS/IMPLANTS that apply: Drains (4 drains) Drain details: 19 Jordanian Emil drains x 4, 1 in each arm and 2 across the belly Estimated Blood Loss: 500 cc Specimen collected: No Description of surgery: Indications: Chapis Mulligan is a delightful 54-year-old female who underwent massive weight loss and presents today for body contouring in the setting of excess abdominal apron that is symptomatic, as well as excess arm skin and fat that is causing rubbing and other symptoms (pain and inability to fit clothing/exercise). She presents today for bilateral brachioplasty and panniculectomy. I discussed with her the planned incisions. I talked her about the risks, which included but were not limited to damage surrounding structures, nerve damage, lymphedema, asymmetries postoperatively, bleeding, infection, and failure to obtain the desired result. She understood the risks, benefits, and alternatives to the procedure. She elected to proceed. Procedure details: Patient was correct identified in preoperative holding and marked. She was taken back to the operating room where she was administered general anesthesia and prepped and draped in sterile fashion. SCD was on and activated. All proper timeouts were performed. 250 cc of tumescent solution was injected into the arms bilaterally through a stab incision above the medial epicondyle. It was given time to take effect and then a 4 mm Rocio cannula was used to perform suction assisted lipectomy beneath the planned area of excision of skin. Approximately 250 cc of Lipo aspirate was removed from each side, and then the pickens were checked and then incisions were made with a 15 blade scalpel. The planned area of skin resection was then removed through avulsion technique with towel clamps from proximal to distal so as to preserve lymphatics and nerves. Hemostasis obtained with Bovie electrocautery. A 19 Jordanian Emil drain was placed and tunneled out distally. The incision was placed in a vertical orientation from the axilla to the medial epicondyle and the posterior medial position. 3-0 PDS suture was used to close the deep layer and 3-0 Monocryl deep dermals and 3-0 Monocryl running subcuticular sutures were placed. Prineo tape was then placed. The drains were holding suction. Kerlix and Pranay wrap's were used to wrap from the hands to the axilla. Attention was then turned to the abdomen. A small amount of tumescent (100 cc) was placed in the upper abdomen and a 4 mm Rocio cannula was used to aspirate 50 cc of Lipo aspirate from the superior aspect of the fuvbp-un-htu incision so as to prevent a dogear on the chest. 10 blade scalpel was then used to make an elliptical vertical incision on the right and left abdomen down to the level of the umbilicus. The umbilicus was then removed from the planned pannus resection with a 15 blade scalpel and skin hooks. Bovie electrocautery was then used to dissect around the umbilicus leaving a layer of fat around it for perfusion. The vertical panniculectomy component was then removed with Bovie electrocautery from the abdomen, obtaining hemostasis with Bovie electrocautery and also with silk ties as needed. The vertical component of the pluyv-vl-ilu was then closed with jaren. A horizontal incision was then made with a 10 blade scalpel approximately 8 cm above the vaginal commissure over the pubic symphysis carried out laterally towards the ASIS. Bovie electrocautery was carefully used to raise the transverse panniculectomy flap, with care taken to preserve fat, lymphatics, and nerves over the groin and hips (thick layer of fat left on the pelvic bones). Once the vertical and horizontal incisions were connected, the top portion of the transverse panniculectomy incision was made with a 10 blade scalpel after checking to make sure the appropriate mount of tension/skin removal was obtained. The vertical and horizontal skin components were then weighed and weighed 1.6 kg (3.5 pounds). The wound was irrigated with copious amounts normal saline and Irrisept. Hemostasis is then obtained with Bovie electrocautery and hemoblast. Two 19 Jordanian Emil drains were then tunneled out laterally and placed within the dissection pocket. The limbs of the [id number] panniculectomy were then stapled into place and 2-0 Vicryl deep fascial sutures were placed along the incision vertically and horizontally. 3-0 Monocryl deep dermal sutures were then placed followed by 4-0 Monocryl running subcuticular suture. The umbilicus was inset with 4-0 Monocryl in its quileute position along the vertical incision. Prineo tape was applied. The patient tolerated the procedure well. She was awakened and taken to the PACU in stable condition and an abdominal binder with ABDs. Postoperative plan: Admit overnight for monitoring and for drain care teaching. Surgical Findings: Able to resect significant amount of abdominal tissue with [id number]-[id number]-wgd resection. No issues with closure of the brachioplasty incisions. Approximately 500 cc of Lipo aspirate Complications Complications: No
--- NOTE | 2025-04-19 15:35 | PCM.POSTANE2 ---
Anesthesia Postop Eval I Sum Postop Eval Completion status Anesthesia document: Postop Eval 1 completed: Yes Anesthesia Postop Eval I Summary Anesthesia Postop Eval I Summary: Anesthesia Postop Eval I: Assessment Summary Airway patent Yes 04/19/25 12:32 [email or web address] Spontaneous unlabored Yes 04/19/25 12:32 [email or web address] respirations Mental status Awake,Calm 04/19/25 12:32 [email or web address] nausea No 04/19/25 12:32 [email or web address] Vomiting No 04/19/25 12:32 [email or web address] Anesthesia Postop Eval I: Fluid Summary Crystalloid volume administer 2,600 04/19/25 12:32 [email or web address] (ml) Colloids volume administered ( ml) Blood Product volume administered (ml) Total IV fluid infused 2,600 04/19/25 12:32 [email or web address] Anesthesia Postop Eval I: Summary Notes Anesthesia Complication No 04/19/25 12:32 [email or web address] Anesthesia Complication Comment: Post-operative progress note Anesthesia: Postop Eval II Evaluation Mental status: Awake and Calm Pain Level: 0 nausea: No Vomiting: No Complications Anesthesia Complication: No
[2025-04-19] MEDS: 0.9% Normal Saline (1000mL) 1,000 ML 75 ML IV (15:38)
[2025-04-19] MEDS: HYDROmorphone 0.5 MG/0.5 ML SYRINGE IV (22:12)
[2025-04-19] MEDS: Cefazolin 2 GM in 0.9% Normal Saline (100mL Bag) 100 ML IV (22:12)
[2025-04-20 03:00] VITALS: BP 109/62; PULSE 73; RESP 16; TEMP 36.9; O2SAT 98
[2025-04-20] MEDS: 0.9% Normal Saline (1000mL) 1,000 ML 75 ML IV (04:26)
[2025-04-20] MEDS: Cefazolin 2 GM in 0.9% Normal Saline (100mL Bag) 100 ML IV ×3 (06:24→22:41)
[2025-04-20 06:49] LABS: Hematocrit 28.1 % (37-47); Hemoglobin 9.3 g/dL (12.0-15.0); Immature Granulocytes Count 0.010 X10^3/uL (0.0-0.0); Mean Corp Hgb Conc 33.1 g/dL (32-36); Mean Corpuscular Volume 92.7 fL (81-99); Mean Platelet Vol. 10.7 fl (6.2-12.0); NRBC Flagged by Analyzer 0 % (0-5); Platelet Count 228 K/mm3 (150-450); RBC Distribution Width CV 13.5 % (11.6-14.6); RBC Distribution Width SD 46.2 fl (35.1-43.9); Red Blood Count 3.03 M/mm3 (4.2-5.4); White Blood Count 5.8 K/mm3 (4.4-11.0)
[2025-04-20 07:00] VITALS: BP 107/68; PULSE 81; RESP 16; TEMP 37.1; O2SAT 97
[2025-04-20] MEDS: Lactobacillis Acidophilus 1 CAP PO (08:46)
[2025-04-20] MEDS: Cholecalciferol (VIT D3) 25 MCG TABLET (1,000 UNITS) PO (08:46)
--- NOTE | 2025-04-20 10:18 | PCM.PN.SRG ---
Subjective Subjective Patient seen with Dr. Frazier this morning. She was sitting up in her chair with her arms elevated. She reports expected postoperative pain in her arms and abdomen. Pain is not controlled on orals alone overnight. Her blood pressure was elevated secondary to pain is improved in the morning. She has been tolerating oral intake, eating well, urinating and passing gas. Objective Data Objective Data Vital Signs: Vital Signs Temp Pulse Resp BP Pulse Ox O2 Del Method 98.7 F 81 16 107/68 97 Room Air 04/20/25 07:00 04/20/25 07:00 04/20/25 07:00 04/20/25 07:00 04/20/25 07:00 04/20/25 07:00 Oxygen Delivery Method Room Air Weight: 145 lb 8.081 oz Body Mass Index (BMI) 24.2 Intake & Output: Intake and Output for Last 24 Hours 04/18/25 04/19/25 04/20/25 23:59 23:59 23:59 Intake Total 2850.25 / 2850.25 1470 / 1470 Output Total 1575 / 1575 40 / 40 Balance 1275.25 / 1275.25 1430 / 1430 Lab / Micro Data Attestation: I reviewed the patient's lab results. 04/20/25 06:20 03/30/25 09:16 Labs: Laboratory Results - last 24 hr 04/20/25 06:20: WBC 5.8, RBC 3.03 L, Hgb 9.3 L, Hct 28.1 L, MCV 92.7, MCH 30.7, MCHC 33.1, RDW Std Deviation 46.2 H, RDW Coeff of Álvaro 13.5, Plt Count 228, MPV 10.7, Immature Gran % (Auto) 0.200, Neut % (Auto) 60.9, Lymph % (Auto) 24.6, [place] % (Auto) 13.8 H, Eos % (Auto) 0.2, Baso % (Auto) 0.3, Absolute Neuts (auto) 3.5, Absolute Lymphs (auto) 1.42, Nucleated RBC % 0 Physical Exam Narrative Afebrile/VSS. Sitting in chair in no acute distress. Examined with Dr. Frazier All dressings were removed Scant serosanguineous drainage of bilateral arms and abdomen. Bilateral arm incision are clean, dry, intact. Left arm slightly more swollen than right. No hematoma. fingers are well perfused, pink, nonedematous, cap refill <2 sec Abdominal incision are clean, dry intact. Abdomen is soft, no hematoma. 4 TYLOR Drain output total of 315ml overnight. No lower leg swelling. SCD's in place Assessment & Plan Assessment/Plan (1) Excess skin of arm: (2) Panniculitis: PLAN: Plan POD #1 [place] panniculectomy and bilateral brachioplasty Pain control: Not well controlled on orals alone. Needed breakthrough IVP overnight Incision: daily dressing changes. Please do not tape dressing. Drain output: Arms with less output than abdomen. 315ml total. Likely plan for drain removal in one or both of her arms. Diet: High protein diet. Adequate fluid intake. DC NS fluid Activity: Beach chair position while sitting or in bed. PT ordered today. Encouraged incentive spirometry DVT ppx: SCD's and SQ Lovenox this evening Dispo: Given poor pain control, elevated BP secondary to this, pending PT eval patient does not meet discharge criteria today. Will keep over night, likely discharge tomorrow.
[2025-04-20 11:00] VITALS: BP 155/90; PULSE 77; RESP 18; TEMP 36.6; O2SAT 97
--- NOTE | 2025-04-20 13:14 | CASEMGMT ---
JOCE CARDONA into pt room, pt sitting up in bed in no distress. JOCE CARDONA discussed DC plan, pt states she has family at home to assist her. Pt currently has 4 TYLOR drains in, states they plan to take 2 drains out tomorrow and I will go home with the other 2 drains. Pt states she is comfortable with this and denies any questions or concerns at this time.
[2025-04-20] MEDS: 0.9% Saline Lock 10 ML Syringe IV (14:57)
[2025-04-20 16:25] VITALS: BP 116/53; PULSE 78; RESP 16; TEMP 36.6; O2SAT 97
[2025-04-20] MEDS: HYDROmorphone 0.5 MG/0.5 ML SYRINGE IV (20:43)
[2025-04-20 22:30] VITALS: BP 110/61; PULSE 85; RESP 16; TEMP 36.9; O2SAT 100
[2025-04-21 04:30] VITALS: BP 104/62; PULSE 88; RESP 16; TEMP 36.9; O2SAT 95
[2025-04-21] MEDS: Cefazolin 2 GM in 0.9% Normal Saline (100mL Bag) 100 ML IV ×3 (05:55→22:25)
[2025-04-21] MEDS: HYDROmorphone 0.5 MG/0.5 ML SYRINGE IV ×3 (06:24→15:01)
[2025-04-21 09:36] VITALS: BP 114/57; PULSE 87; RESP 16; TEMP 37.4; O2SAT 97
[2025-04-21] MEDS: 0.9% Saline Lock 10 ML Syringe IV ×4 (09:41→19:09)
[2025-04-21] MEDS: Senna/Docusate Sodium 1 Tablet PO ×2 (11:25→22:31)
[2025-04-21] MEDS: Lactobacillis Acidophilus 1 CAP PO (11:25)
[2025-04-21] MEDS: Cholecalciferol (VIT D3) 25 MCG TABLET (1,000 UNITS) PO (11:26)
--- NOTE | 2025-04-21 12:29 | DS.PCM_ITS ---
Providers Date of Admission: 04/19/25 Primary Care Physician: Dr. Alan Herrera MD Reason For Visit: Roseanna christopher panniculectomy Diagnosis Discharge Diagnosis (1) Excess skin of arm: Status: Acute Code(s): L98.7 - Excessive and redundant skin and subcutaneous tissue (2) Panniculitis: Status: Acute Code(s): M79.3 - Panniculitis, unspecified Plan I talked to the patient extensively about the risks of surgery, including bleeding, infection, damage to surrounding structures, poor scaring, surgical site dehiscence and wound formation, need for wound care, need for repeat operations, failure to obtain the desired result, DVT/PE, and the risks of anesthesia including , including stroke (from low blood pressure/ischemia or clot). The benefits and alternatives of this surgery were also discussed. All of their questions were answered, and they agreed to proceed with surgery. Calculated the Caprini score and it was 3 I talked her about the overall risk of blood clots and how she needs to ambulate immediately after surgery. I talked her about the risk of wound healing complications with doing the arms and [id number]-[id number] at the same time as these are longer incisions and more areas for her to heal. She would like to do it all at once, and she understands the postoperative recovery period with drains and need for assistance at home (she has several family members to help her). Furthermore, emphasizing this this morning, I spoke with her about existing asymmetries (umbilicus being to the left) of the abdomen and arms, and discussed how we can anticipate some asymmetries post-operatively. She would like to proceed with surgery Plan for vstrg-hs-myo panniculectomy with posterior medial brachioplasty bilaterally I discussed with her extensively the scar placement and anticipated scars postoperatively. We furthermore talked about existing asymmetries and anticipated asymmetry postoperatively as well as some residual skin redundancy so as to not make her skin too tight at the completion of the case and have further likelihood of wound healing complications. She was in agreement with this plan. INTERVAL H&P PLAN, DATE OF SURGERY: We will proceed with surgery today. Medications at Discharge Home Medications alprazolam 0.5 mg tablet 0.5 mg PO TID PRN PRN Anxiety 05/17/19 L.acidoph,paracasei,B.animalis 10 billion cell capsule 1 ea PO DAILY 04/24/20 ascorbic acid (vitamin C) 1,000 mg tablet 1,000 mg PO DAILY 04/24/20 cholecalciferol (vitamin D3) 25 mcg (1,000 unit) tablet 1,000 unit PO DAILY 04/24/20 pantoprazole 20 mg tablet,delayed release 20 mg PO DAILY 04/24/20 levothyroxine 75 mcg tablet 75 mcg PO DAILY 02/26/23 ondansetron 4 mg disintegrating tablet 4 mg PO Q8H PRN nausea and vomiting #10 tabs 04/21/25 oxycodone 5 mg tablet 5 mg PO Q6H PRN pain 5 days #20 tabs 04/21/25 Hospital Course Summary of Care Provided Hospital Course: Patient is a delightful 54-year-old female who last a significant amount of weight and was admitted on 19 April 2025 immediately following [id number] panniculectomy and bilateral brachioplasty. She did well with her hospital course, and walked with physical therapy and nursing. Her arm drains were removed on postop day 2, and her arms were rewrapped. Pain was controlled starting postop day 2 on oral medication and she felt comfortable going home. Physical Exam Narrative Respiratory: 1700 cc on I-S this morning Abdomen: Soft with incisions clean dry and intact. Drain stripped well, no clots, appropriate output. No hematoma. Extremities: Fingers and hands warm and well-perfused. Able to give bilateral peace, okay, and thumbs up signs. No numbness or tingling in the forearms. Brachioplasty incisions clean dry and intact, drains removed without issue. No swelling or hematoma. Legs: No calf swelling, SCDs on and activated. No pain with dorsiflexion. Weight / BMI Weight Weight: 145 lb 8.081 oz Body Mass Index (BMI) 24.2 ABG / Lab / Microbiology Data 04/20/25 06:20 03/30/25 09:16 D/C Instructions DC O2, CPAP, BIPAP Needs Home O2 Discharge instructions: No Meaningful Use Info Meaningful Use Meaningful Use Diagnoses (Choose all that apply): None applicable Discharge Plan Admission Admit Date/Time: 04/19/25 12:10 Attending Provider: Goran Frazier Primary Care Provider: Alan Herrera Instructions Additional Instructions / Restrictions: Drain Care:? A drain has been placed during surgery in order to prevent the accumulation of fluids beneath your skin. The drain decreases the chance of infection and helps in the healing process. The nursing staff will instruct you and your family on the care and recording of drainage. ? * You may shower with them. Let soap and water run down over drains, rinse and pat dry with clean towel. Reinforce with gauze or ABD pad around drain site if leaking occurs around the drain; this is not unusual.?Hold drains in your hand or attach to lanyard (or string) around your neck with safety pin so they do not hang from your body (the tension on your skin may cause them to be pulled out) while your are showering. * The drains are attached to you with suture. If your drain(s) falls out accidentally, place a clean piece of gauze over the drain site with tape and discard your drain.? * If your drain bulb loses suction or your drain has migrated out from the drain site, do not attempt to push the drain back into your skin. Cover the area with dry gauze. You may be asked by your surgeon to place a piece of semi occlusive dressing (tegaderm) over the drain site to keep the site clean and drain in place until you are seen in the office.? * When you are wearing clothes, attach drains to your clothes in a place where there is minimal/no tension on the insertion site to your skin.? * You should empty the drainage and record the output at least 2 times per day, or when the drainage fills the bulb almost residential. Please keep daily amounts of drainage separate for each drain for a 24-hour period (for example drain #1 put out 40 mL for 24 hours).? * Strip your drains daily as shown to you by your nurse prior to discharge to avoid them from becoming clogged:? * Wash your hands. * Strip tubing three times a day (more often if there are a lot of blood clots). * Grasp tubing close to body with one hand and pull toward body. With other hand grasp tubing below the first hand. Using an alcohol swab, pinch tubing tightly, sliding fingers down tubing, away from body. * Repeat 2 or 3 times. Be sure drainage is flowing into bulbs. * Measure the drainage in the bulb by either using the calibrations on the bulb or by emptying the Bulb into small measuring container 3 times a day (more often if there is a lot of drainage or they feel heavy) Open small lid on top of bulb. Pour drainage into container. Squeeze bulb and hold while replacing small lid. Bulb should be collapsed to be effective. Pin bulb to clothing so the weight will not pull on the insertion site. * Measure drainage and record amount each time you empty the bulbs. Hold container at eye level to read the numbers on the side of the container. Read the numbers in the ml column. Record amount of drainage on chart. * Record your drain output daily and bring this record with you to your next follow up appointment. Drains will typically be removed in the clinic when output is less than 30 mL/24 hours per drain over 2 consecutive days. For drain removal appointment, please call your doctors office directly to schedule.? Location: Drain #1 Drain #2 Drain #3 Drain #4 0 0 0 AM Noon PM AM Noon PM AM Noon PM AM Noon PM Date: Total (daily) 0 0 0 AM Noon PM AM Noon PM AM Noon PM AM Noon PM Date: Total (daily) 0 0 0 AM Noon PM AM Noon PM AM Noon PM AM Noon PM Date: Total (daily) 0 0 0 AM Noon PM AM Noon PM AM Noon PM AM Noon PM Date: Total (daily) 0 0 0 AM Noon PM AM Noon PM AM Noon PM AM Noon PM Date: Total (daily) 0 0 0 AM Noon PM AM Noon PM AM Noon PM AM Noon PM Date: Total (daily) 0 0 0 AM Noon PM AM Noon PM AM Noon PM AM Noon PM Date: Total (daily) 0 0 0 AM Noon PM AM Noon PM AM Noon PM AM Noon PM Date: Total (daily) 0 0 0 AM Noon PM AM Noon PM AM Noon PM AM Noon PM Date: Total (daily) 0 0 0 AM Noon PM AM Noon PM AM Noon PM AM Noon PM Date: Total (daily) 0 0 0 AM Noon PM AM Noon PM AM Noon PM AM Noon PM Date: Total (daily) 0 0 0 AM Noon PM AM Noon PM AM Noon PM AM Noon PM Date: Total (daily) 0 0 0 AM Noon PM AM Noon PM AM Noon PM AM Noon PM Date: Total (daily) 0 0 0 AM Noon PM AM Noon PM AM Noon PM AM Noon PM Date: Total (daily) 0 0 0 AM Noon PM AM Noon PM AM Noon PM AM Noon PM Date: Total (daily) 0 0 0 Instructions for My Care at Home or Healthcare Facility The following instructions will help you know what to expect in the days following surgery. These are general instructions. Your surgeon and therapist may give you special instructions, which vary to some degree based on your specific procedure -- follow those as directed. Do not, however, hesitate to call if you have any questions or concerns. Splint Care/Dressing Care/Wound Care * Dressings - You may have a dressing over the operative site. * If the dressing feels too tight after you get home, it is ok to gently pull on the dressing to stretch it out/loosen it. * Avoid smoking or other tobacco products. Smoking tobacco impairs wound healing and increases the risks of post-operative complications. * Tape over your incisions (if present) will fall off on its own ? Activities * For the first 4 weeks after surgery, try to balance your activity, allowing time for rest. * Avoid lifting, pushing, or pulling anything over 5 pounds. * Do not drive or operate heavy machinery within 24 hrs of surgery or while taking narcotic pain medication.? * Make sure you are walking so as to prevent a DVT (several times per day walk) * Elevate the arms while sitting or in bed * Sleep in a slightly flexed/beach chaired position as able to keep tension off of the incisions. Pain Control/Medications * If you received an anesthetic block, your hand or arm may be numb for several hours. You will be discharged to home with medications, including an oral pain medication (analgesic). Rest and elevation are still one of the most important factors for pain control. Take your pain medication as needed, but do not wait for the pain to become out of control. * For severe pain, you may take prescription pain medication as directed, but please note that this may also contain Tylenol (e.g. Percocet). Do not take more than 4000mg of Tylenol (acetaminophen) from all sources daily.? * Pain medication may cause some lethargy, nausea, and or constipation. You should not drive/operate dangerous machinery while taking these medications. If these or other symptoms become significantly problematic, please your surgeon's office. * If prescribed oral antibiotics (Keflex, Clindamycin, or others), please take prescription for full duration as instructed. You should not have any pills remaining once completed (refills are written for your convenience should the course need to be extended, but generally they are not required). Diet (what I can eat): Resume normal diet Follow up * You will be seen (most likely) 1 to 2 weeks after surgery depending on the procedure. Follow-up appointment reminders:? (A list of any scheduled appointments is at the end of this document)? At your earliest convenience, please call [phone] to confirm/schedule a follow-up appointment with me in clinic on Thursday. When to call your surgeon: * If any signs of surgical site infection develop: redness, pus, pain, increased swelling or foul odor at the incision site, fever, cold and clammy skin, or confusion. * Consistent temperature above 101?F (38.3?C). * The affected area gets swollen or much more painful. * You have excessive bleeding from surgical site (soaking through). If you experience difficulty breathing and/or shortness of breath, seek immediate medical attention. If experiencing any of the above complications or if you have any questions, call [phone] . Discharge Orders/Prescriptions Prescriptions: New oxycodone 5 mg tablet 5 mg PO Q6H PRN (Reason: pain) 5 Days Qty: 20 0RF ondansetron 4 mg tablet,disintegrating 4 mg PO Q8H PRN (Reason: nausea and vomiting) Qty: 10 0RF No Action levothyroxine 75 mcg tablet 75 mcg PO DAILY Patient Comments: TAKE 1 TABLET BY MOUTH EVERY DAY BEFORE BREAKFAST alprazolam 0.5 MG tablet 0.5 mg PO TID PRN PRN (Reason: Anxiety) ascorbic acid (vitamin C) 1,000 MG tablet 1,000 mg PO DAILY pantoprazole 20 MG tablet 20 mg PO DAILY cholecalciferol (vitamin D3) 1,000 UNIT tablet 1,000 unit PO DAILY L.acidoph,paracasei,B.animalis 1 EACH capsule 1 ea PO DAILY Referrals / Follow Up: Alan Herrera MD [Primary Care Provider, Internal Medicine] Disposition Disposition (needs filled in before D/C Order can be placed): Home, Self Care
--- NOTE | 2025-04-21 14:02 | PHA.DC.MC.R ---
Pharmacy [facility] Counseling Pharmacy Service has performed discharge medication reconciliation and counseling for this patient. 1. ONDANSETRON ODT 4MG PO Q8H PRN NAUSEA/VOMITING 2. OXYCODONE 5MG PO Q6H PRN PAIN The patient's discharge medication list was reviewed for discrepancies and discrepancies were resolved. The patient was counseled on the following discharge medications and changes in medications for homegoing were reviewed. The Reason for Use, instructions for use, and potential side effects were reviewed for all new medications. The patient's questions regarding all of their medications were answered. The patient was able to verbally demonstrate an understanding of their discharge medications. Medications at Discharge Home Medications alprazolam 0.5 mg tablet 0.5 mg PO TID PRN PRN Anxiety 05/17/19 L.acidoph,paracasei,B.animalis 10 billion cell capsule 1 ea PO DAILY 04/24/20 ascorbic acid (vitamin C) 1,000 mg tablet 1,000 mg PO DAILY 04/24/20 cholecalciferol (vitamin D3) 25 mcg (1,000 unit) tablet 1,000 unit PO DAILY 04/24/20 pantoprazole 20 mg tablet,delayed release 20 mg PO DAILY 04/24/20 levothyroxine 75 mcg tablet 75 mcg PO DAILY 02/26/23 ondansetron 4 mg disintegrating tablet 4 mg PO Q8H PRN nausea and vomiting #10 tabs 04/21/25 oxycodone 5 mg tablet 5 mg PO Q6H PRN pain 5 days #20 tabs 04/21/25
[2025-04-21 14:52] VITALS: BP 157/98; PULSE 87; RESP 18; TEMP 37.1; O2SAT 99
--- NOTE | 2025-04-21 16:11 | PCM.PN.SRG ---
Subjective Subjective Patient with nausea and vomiting after Dilaudid was given this afternoon. Ordering BMP and CBC and putting her back onto fluid. She will stay the night Objective Data Objective Data Vital Signs: Vital Signs Temp Pulse Resp BP Pulse Ox O2 Del Method 98.8 F 87 18 157/98 H 99 Room Air 04/21/25 14:52 04/21/25 14:52 04/21/25 14:52 04/21/25 14:52 04/21/25 14:52 04/21/25 14:52 Oxygen Delivery Method Room Air Weight: 145 lb 8.081 oz Body Mass Index (BMI) 24.2 Intake & Output: Intake and Output for Last 24 Hours 04/19/25 04/20/25 04/21/25 23:59 23:59 23:59 Intake Total 2850.25 / 2850.25 3287.5 / 3287.5 560 / 560 Output Total 1575 / 1575 177 / 178 66 / 66 Balance 1275.25 / 1275.25 3110.5 / 3109.5 494 / 494 Lab / Micro Data 04/20/25 06:20 03/30/25 09:16
[2025-04-21 18:48] LABS: Hematocrit 25.4 % (37-47); Hemoglobin 8.4 g/dL (12.0-15.0); Mean Corp Hgb Conc 33.1 g/dL (32-36); Mean Corpuscular Volume 93.4 fL (81-99); Mean Platelet Vol. 10.9 fl (6.2-12.0); Platelet Count 187 K/mm3 (150-450); RBC Distribution Width CV 13.3 % (11.6-14.6); RBC Distribution Width SD 45.7 fl (35.1-43.9); Red Blood Count 2.72 M/mm3 (4.2-5.4); White Blood Count 7.9 K/mm3 (4.4-11.0)
[2025-04-21] MEDS: Lactated Ringers 1,000 ML 75 ML IV (19:09)
[2025-04-21 19:21] LABS: Anion Gap 10 (5-15); BUN 10 mg/dL (4-19); BUN/Creat Ratio 14.1 RATIO (10-20); Calcium,Total 8.3 mg/dL (7.6-11.0); Carbon Dioxide 23.8 mmol/L (21.0-32.0); Chloride 106 mmol/L (98-108); Estimated Creatinine Clearance 80.56 ml/min (50-250); Glucose 168 mg/dL (70-99); Potassium 3.3 mmol/L (3.3-5.1)
[2025-04-21 20:21] VITALS: BP 132/66; PULSE 88; RESP 16; TEMP 36.8; O2SAT 100
[2025-04-21 23:19] VITALS: BP 129/66; PULSE 71; RESP 16; TEMP 36.7; O2SAT 96
[2025-04-22 03:42] VITALS: BP 136/78; PULSE 66; RESP 16; TEMP 36.6; O2SAT 100
[2025-04-22] MEDS: Cefazolin 2 GM in 0.9% Normal Saline (100mL Bag) 100 ML IV (05:43)
[2025-04-22 07:59] LABS: Hematocrit 24.7 % (37-47); Hemoglobin 8.2 g/dL (12.0-15.0); Mean Corp Hgb Conc 33.2 g/dL (32-36); Mean Corpuscular Volume 94.3 fL (81-99); Mean Platelet Vol. 11.0 fl (6.2-12.0); Platelet Count 196 K/mm3 (150-450); RBC Distribution Width CV 13.3 % (11.6-14.6); RBC Distribution Width SD 46.1 fl (35.1-43.9); Red Blood Count 2.62 M/mm3 (4.2-5.4); White Blood Count 5.3 K/mm3 (4.4-11.0)
[2025-04-22 08:00] VITALS: BP 156/101; PULSE 70; RESP 14; TEMP 37; O2SAT 100
[2025-04-22] MEDS: Cholecalciferol (VIT D3) 25 MCG TABLET (1,000 UNITS) PO (08:38)
[2025-04-22] MEDS: Senna/Docusate Sodium 1 Tablet PO ×2 (08:38)
[2025-04-22] MEDS: Lactobacillis Acidophilus 1 CAP PO (08:38)
[2025-04-22] MEDS: Lactated Ringers 1,000 ML 75 ML IV (08:43)
--- NOTE | 2025-04-22 08:56 | PN.SURG_ITS ---
Subjective Subjective Dong well postop day 3 from [facility] panniculectomy and bilateral brachioplasty. Patient had some nausea and vomiting yesterday afternoon after some Dilaudid. She was therefore kept in the hospital for another night. Patient doing well this morning without any nausea or vomiting and pain is controlled. She feels like she is ready to go home. Objective Data Objective Data Vital Signs: Vital Signs Temp Pulse Resp BP Pulse Ox O2 Del Method 98.6 F 70 14 156/101 H 100 Room Air 04/22/25 08:00 04/22/25 08:00 04/22/25 08:00 04/22/25 08:00 04/22/25 08:00 04/22/25 08:00 Oxygen Delivery Method Room Air Weight: 145 lb 8.081 oz Body Mass Index (BMI) 24.2 Intake & Output: Intake and Output for Last 24 Hours 04/20/25 04/21/25 04/22/25 23:59 23:59 23:59 Intake Total 3287.5 / 3287.5 1230 / 1230 1110 / 1110 Output Total 177 / 178 76 / 86 50 / 50 Balance 3110.5 / 3109.5 1154 / 1144 1060 / 1060 Lab / Micro Data 04/22/25 07:53 04/21/25 18:40 Labs: Laboratory Results - last 24 hr 04/21/25 18:40: WBC 7.9, RBC 2.72 L, Hgb 8.4 L, Hct 25.4 L, MCV 93.4, MCH 30.9, MCHC 33.1, RDW Std Deviation 45.7 H, RDW Coeff of Álvaro 13.3, Plt Count 187, MPV 10.9, Sodium 139, Potassium 3.3, Chloride 106, Carbon Dioxide 23.8, Anion Gap 10, BUN 10, Creatinine 0.71, Estim Creat Clear Calc 80.56, Est GFR (MDRD) Non-Af 100, BUN/Creatinine Ratio 14.1, Glucose 168 H, Calcium 8.3 04/22/25 07:53: WBC 5.3, RBC 2.62 L, Hgb 8.2 L, Hct 24.7 L, MCV 94.3, MCH 31.3, MCHC 33.2, RDW Std Deviation 46.1 H, RDW Coeff of Álvaro 13.3, Plt Count 196, MPV 11.0 Physical Exam Narrative Respiratory: Continues to do well with the I-S Abdomen: Soft with incisions clean dry and intact. Drain stripped well, no clots, appropriate output. No hematoma. Drains are serosanguineous Extremities: Fingers and hands warm and well-perfused. Able to give bilateral peace, okay, and thumbs up signs. No numbness or tingling in the forearms. Brachioplasty incisions clean dry and intact, drains removed without issue. No swelling or hematoma. Legs: No calf swelling, SCDs on and activated. No pain with dorsiflexion. Assessment & Plan Assessment/Plan (1) Excess skin of arm: (2) Panniculitis: PLAN: Plan Patient has done quite well overnight She is ready to go home I spoke with the nursing staff about helping her get a shower before she goes home and then follow-up with us on Thursday. They will unwrap and rewrap her arms with the Kerlix/Pranay wraps. Discussed strict return precautions and signs and symptoms of concern, and patient in agreement. Follow-up with us on Thursday Charges/Coding Procedures Integumentary [id number]: [id number] Global Visit
--- NOTE | 2025-04-22 11:29 | CASEMGMT ---
Dx:Roseanna christopher panniculectomy LACE:1 6-Clicks:None completed. Noted pt ambulating halls. Medical record reviewed and patient evaluated for identification of discharge planning needs. Based on this review, at this time criteria are not present to indicate a need for discharge planning. Will remain available to assist with discharge planning needs as identified or requested. Pt stayed overnight d/t N/V after dilaudid. Pt with dc order in. Pt previously seen by RN BRENDAN regarding drain care.
--- NOTE | 2025-04-22 12:02 | NURSING ---
drsgs to bilat arms and abd redone after pts shower
== END 2025-04-22 13:03 | disposition home or self-care (01) | DRG 581 ==
LOC: SDC 14:58 → MS3 14:58
PROVIDERS: Physician Assistant; Admitting Provider Surgery Plastic and Reconstructive Surgery; PCP Internal Medicine; Referring Provider Surgery Plastic and Reconstructive Surgery; Visit Provider Surgery Plastic and Reconstructive Surgery
PROC: 0JB80ZZ Excision of Abdomen Subcutaneous Tissue and Fascia, Open Approach (ICD-10-PCS; CPT 15830; principal; 2025-04-19 07:15)
PROC: 0J080ZZ Alteration of Abdomen Subcutaneous Tissue and Fascia, Open Approach (ICD-10-PCS; CPT 15836; 2025-04-19 07:15)
DX: L98.7 Excessive and redundant skin and subcutaneous tissue (principal); F41.9 Anxiety disorder, unspecified; I10 Essential (primary) hypertension; K21.9 Gastro-esophageal reflux disease without esophagitis; M79.3 Panniculitis, unspecified; R11.2 Nausea with vomiting, unspecified; R52 Pain, unspecified; Z79.890 Hormone replacement therapy; Z79.899 Other long term (current) drug therapy; Z96.652 Presence of left artificial knee joint
CPT/HCPCS: 36415; 80048; 80053; 84134; 85025; 85027; 94668; 97162; 97166; 97802; A4216; J2405